=== PATIENT | female | born 1965 | race Caucasian/White ===

== ENCOUNTER 2023-04-02 11:36 | Emergency (ER) | payer MEDICARE, OTHER, SELFPAY ==
[2023-04-02 11:51] VITALS: BP 167/96; PULSE 80; RESP 16; TEMP 36.4; O2SAT 98; BMI 31.1
--- NOTE | 2023-04-02 11:56 | ED_ITS ---
HPI - General Adult General Chief complaint: Nausea/Vomiting/Diarrhea Stated complaint: nausea/ diarrhea Time Seen by Provider: 04/02/23 13:06 Source: patient Mode of arrival: ambulatory Limitations: no limitations History of Present Illness HPI narrative: 57-year-old female presents to the ER for evaluation of acute onset of nausea, vomiting, diarrhea that started at 06:00 today. She states she was in her usual state of health yesterday. She woke up this morning feeling very unwell. She had several episodes of nonbloody vomitus and diarrhea. Both episodes were just prior to coming to the emergency department. She took Pepto-Bismol before coming to the emergency department. She denies any associated abdominal pain, fever, chills, chest pain, cough, URI symptoms or known sick contacts. MD complaint: Nausea vomiting and diarrhea Onset (ago): hour(s) Severity: moderate Pain Consistency: now resolved Relieving factors: none Exacerbating factors: none Associated symptoms: denies other symptoms Treatments prior to arrival: none Related Data Previous Rx's Medication Instructions Recorded oxybutynin chloride 10 mg 10 mg PO DAILY 30 days #30 tabs 10/26/20 tablet,extended release 24 hr ondansetron 4 mg disintegrating 4 mg PO Q8H PRN nausea and 04/02/23 tablet vomiting #7 tabs Allergies Allergy/AdvReac Type Severity Reaction Status Date / Time lisinopril [LISINOPRIL] Allergy Severe ANGIOEDEMA Verified 04/02/23 11:50 Review of Systems Review of Systems: Yes all other systems are reviewed and are negative [facility] Social History Social History Alcohol intake: never Smoked in Last 30 Days: No Use of substances other than those prescribed or required for medical reasons: Yes Substance Use Type: Marijuana Advance Directives: No Advance Directives Information Provided: Yes Physical Exam ED Vital Signs: Vital Signs - 24 hr 04/02/23 11:51 04/02/23 12:22 04/02/23 14:47 Temperature 97.6 F Pulse Rate 80 78 89 Respiratory Rate 16 16 16 Blood Pressure 167/96 H 180/90 H 174/96 H Pulse Oximetry 98 95 94 Oxygen Delivery Method Room Air Room Air Room Air 04/02/23 14:48 Temperature Pulse Rate Respiratory Rate Blood Pressure Pulse Oximetry 95 Oxygen Delivery Method Room Air BMI result Body Mass Index 31.1 Appearance: Alert. Oriented X3. No acute distress. Head: normocephalic, atraumatic. Eyes: Pupils equal, round and reactive to light. ENT: Pharynx normal. No tonsillar swelling or exudate. Neck: Normal inspection. Neck supple. CVS: Normal heart rate and rhythm. Pulses normal. Respiratory: No respiratory distress. Breath sounds normal. Abdomen: Soft and nontender. +BS x4 Skin: Skin warm and dry. Normal skin color. Normal skin turgor. No rashes. Extremities: s/p bilateral BKA Neuro/psych: Oriented X 3. No motor deficit. No sensory deficit. CN II-XII intact. Normal speech and cognition. Course Course Course Narrative: RME: 57 yold female with pmh of [place] Saha presents to the ED for multiple episodes of nausea, vomitting, and diarrhea since 6am this morning. patient denies any abdomianl pain, chest pain, coughing, fever, or bodyaches. Patient states chills. labs ordered Medications Administered Discontinued Medications Generic Name Dose Route Start Last Admin Trade Name Freq PRN Reason Stop Dose Admin Sodium Chloride 1,000 mls @ 999 mls/hr 04/02/23 12:34 04/02/23 13:27 Ns IV 04/02/23 13:34 Not Given .Q1H1M STA Sodium Chloride 1,000 mls @ 999 mls/hr 04/02/23 12:34 04/02/23 13:27 Ns IV 04/02/23 13:34 Not Given .Q1H1M STA Sodium Chloride 1,000 mls @ 999 mls/hr 04/02/23 13:15 04/02/23 15:56 Ns IVCONT 04/02/23 14:15 Infused .Q1H1M TOÑO Infusion Ondansetron HCl 4 mg 04/02/23 13:07 04/02/23 13:36 Ondansetron Hcl 4 Mg/2 Ml Vial IVPUSH 04/02/23 13:08 4 mg ONCE ONE Administration Medical Decision Making Medical Decision Making MDM Narrative: 57-year-old female presents to the ER for evaluation of acute onset of nausea, vomiting, diarrhea that started 06:00 today. No associated abdominal pain. On arrival to the ER her vital signs are stable and abdominal exam is benign. IV was established and patient was given IV fluids and Zofran. She had basic labs checked which revealed a leukocytosis which is chronic. She states she has had leukocytosis for 25 years, was seen by flight readiness technician in the past and told there was ?nothing to do about it. ? Her white blood cell count is lower than previous. Her other lab work is unremarkable. She is tolerating p.o. in feeling much better. No episodes of nausea vomiting while in the emergency department. At this point comfortable discharge home with supportive care and antiemetics p.r.n.. Most likely gastroenteritis. Patient agrees with plan Differential Diagnosis Differential Diagnoses: The differential diagnosis associated with the presentation includes Viral gastroenteritis, bacterial gastroenteritis, colitis, diverticulitis, dehydration, metabolic derangement Admission/Observation Consideration of admission/observation: Escalation of care including admission/observation considered Persistent nausea vomiting and diarrhea, considered obs/admission however symptoms resolved Lab Data MDM Lab Attestation statement: I reviewed the patient's lab results. Chronic leukocytosis, no anemia, no evidence of dehydration metabolic derangement 04/02/23 12:51 04/02/23 12:51 Labs: Lab Results 04/02/23 04/02/23 04/02/23 Range/Units 12:10 12:10 12:10 WBC (4.8-10.8) X10*3/uL RBC (4.20-5.50) X10*6/uL Hgb (12.0-16.0) g/dl Hct (37.0-47.0) % MCV (80.0-98.0) fL MCH (27.0-33.0) pg MCHC (31.0-35.0) g/dl RDW (11.0-16.0) % Plt Count (160-400) X10*3/uL MPV (9.4-12.3) fL Immature Gran % (Auto) (0.0-0.4) % Neut % (Auto) (45-73) % Lymph % (Auto) (20-40) % [place] % (Auto) (2-11) % Eos % (Auto) (0-4) % Baso % (Auto) (0-2) % Lymph # (Auto) (1.2-4.9) X10*3/uL [place] # (Auto) (0.1-1.2) X10*3/uL Eos # (Auto) (0.0-0.4) X10*3/uL Baso # (Auto) (0.0-0.2) X10*3/uL Abs Immat Gran (auto) (0.00-0.03) X10*3/uL Absolute Neuts (auto) (2.0-8.3) x10*3/uL Absolute Nucleated RBC (0.0-0.012) X10*3/uL Nucleated RBC % (auto) (0.0-0.2) /100WBC Sodium (135-145) mmol/L Potassium (3.3-5.1) mmol/L Chloride (96-108) mmol/L Carbon Dioxide (22-29) mmol/L Anion Gap (12-20) BUN (9-16) mg/dL Creatinine (0.5-1.4) mg/dL Estim Creat Clear Calc Estimated GFR Random Glucose (60-115) mg/dL Calcium (8.4-10.2) mg/dL Total Bilirubin (0.0-1.0) mg/dL AST (5-31) U/L ALT (0-31) U/L Alkaline Phosphatase (39-117) U/L Total Protein (6.5-8.0) g/dL Albumin (3.5-5.0) g/dL Lipase (8-78) U/L Urine Color Yellow Urine Appearance Clear Urine pH 5.5 (5.0-9.0) Ur Specific [place] 1.020 (1.005-1.025) Urine Protein 30 (1+) H (Neg-Trace) mg/dL Urine Glucose (UA) Negative (Negative) mg/dL Urine Ketones Trace (Negative) mg/dL Urine Blood Moderate (2+) H (Negative) Urine Nitrite Negative (Negative) Ur Leukocyte Esterase Trace H (Negative) Urine RBC 3-5 H (0-2) /HPF Urine WBC 0-5 (0-5) /HPF Ur Squamous Epith Cells 6-10 (0-2) /HPF Urine Bacteria Trace (None Seen) Hyaline Casts 0-2 (0-2) /LPF COVID-19 (NATHALY) Negative (Negative) COVID-19 Clin Com See Note Influenza Type A (JOSE) Negative (Negative) Influenza Type B (JOSE) Negative (Negative) Influenza A & B Note See Note 04/02/23 04/02/23 Range/Units 12:51 13:24 WBC 16.6 H (4.8-10.8) X10*3/uL RBC 4.82 (4.20-5.50) X10*6/uL Hgb 14.8 (12.0-16.0) g/dl Hct 44.4 (37.0-47.0) % MCV 92.1 (80.0-98.0) fL MCH 30.7 (27.0-33.0) pg MCHC 33.3 (31.0-35.0) g/dl RDW 12.4 (11.0-16.0) % Plt Count 264 (160-400) X10*3/uL MPV 9.7 (9.4-12.3) fL Immature Gran % (Auto) 0.5 H (0.0-0.4) % Neut % (Auto) 88.4 H (45-73) % Lymph % (Auto) 8.1 L (20-40) % Band[place] % (Auto) 2.7 (2-11) % Eos % (Auto) 0.1 (0-4) % Baso % (Auto) 0.2 (0-2) % Lymph # (Auto) 1.3 (1.2-4.9) X10*3/uL [place] # (Auto) 0.5 (0.1-1.2) X10*3/uL Eos # (Auto) 0.0 (0.0-0.4) X10*3/uL Baso # (Auto) 0.0 (0.0-0.2) X10*3/uL Abs Immat Gran (auto) 0.08 H (0.00-0.03) X10*3/uL Absolute Neuts (auto) 14.7 H (2.0-8.3) x10*3/uL Absolute Nucleated RBC 0.000 (0.0-0.012) X10*3/uL Nucleated RBC % (auto) 0.0 (0.0-0.2) /100WBC Sodium 142 (135-145) mmol/L Potassium 3.9 (3.3-5.1) mmol/L Chloride 110 H (96-108) mmol/L Carbon Dioxide 22 (22-29) mmol/L Anion Gap 14 (12-20) BUN 11 (9-16) mg/dL Creatinine 0.79 (0.5-1.4) mg/dL Estim Creat Clear Calc 71.4 Estimated GFR > 60 Random Glucose 109 (60-115) mg/dL Calcium 9.5 (8.4-10.2) mg/dL Total Bilirubin 0.4 (0.0-1.0) mg/dL AST 11 (5-31) U/L ALT 11 (0-31) U/L Alkaline Phosphatase 86 (39-117) U/L Total Protein 7.5 (6.5-8.0) g/dL Albumin 4.2 (3.5-5.0) g/dL Lipase 31 (8-78) U/L Urine Color Urine Appearance Urine pH (5.0-9.0) Ur Specific [place] (1.005-1.025) Urine Protein (Neg-Trace) mg/dL Urine Glucose (UA) (Negative) mg/dL Urine Ketones (Negative) mg/dL Urine Blood (Negative) Urine Nitrite (Negative) Ur Leukocyte Esterase (Negative) Urine RBC (0-2) /HPF Urine WBC (0-5) /HPF Ur Squamous Epith Cells (0-2) /HPF Urine Bacteria (None Seen) Hyaline Casts (0-2) /LPF COVID-19 (NATHALY) (Negative) COVID-19 Clin Com Influenza Type A (JOSE) (Negative) Influenza Type B (JOSE) (Negative) Influenza A & B Note Independent Historian Clinical information obtained from an independent historian. History obtained from or confirmed by: Other (Adult female member at the bedside) Tests considered The following testing was considered but not selected: Considered CT scan of the abdomen however her abdomen is soft and nontender Prescription Management I considered prescription management with: Other (Antiemetic) Critical Care Time Critical Care Time Critical Care Time: No Discharge Plan Discharge Clinical Impression: Gastroenteritis Patient Disposition: Home, Self-Care Instructions: Gastroenteritis (DC) Additional Instructions: You lab workup today was unremarkable. Your urine test was negative for infection but showed trace amounts of blood - recommend getting this repeated at your doctor's office when you are feeling better to ensure resolution. You most likely have a viral GI bug also known as gastroenteritis. Treatment is supportive care, symptoms usually resolve on their own in 48-72 hours. Recommend rest and plenty of oral hydration. Stick to a bland diet like soup and toast while you are not feeling well. Take the prescribed medication as needed for nausea. Recommend over the counter Pepto Bismol or Imodium for upset stomach and diarrhea. Follow up with your doctor as needed. If you develop new or worsening symptoms call 911 or come back to the ER for further evaluation. Prescriptions: New ondansetron 4 mg tablet,disintegrating 4 mg PO Q8H PRN (Reason: nausea and vomiting) Qty: 7 0RF No Action oxybutynin chloride 10 mg tablet extended release 24hr 10 mg PO DAILY 30 Days Qty: 30 0RF Referrals: Effie Huerta MD [Primary Care Provider] - Interventions: ED Discharge Assessment Last Done: 04/02/23 16:04 Discharge Date/Time: 04/02/23 16:04
--- NOTE | 2023-04-02 12:14 | MHC.EDTECH ---
Attempted to draw patients blood, patient has good vein but moved arm both times. Evette
[2023-04-02 12:22] VITALS: BP 180/90; PULSE 78; RESP 16; O2SAT 95
--- NOTE | 2023-04-02 12:50 | PC.NURSE ---
pt axox4, respirations even and unlabored, sats 96% RA, vss, skin wpd, +bs x 4. pt reports several episodes of n/v/d x 0600 today. reports chills; denies cp/sob. iv established, labs drawn. awaiting primary eval by ed provider; all needs met at this time; call sevilla within reach.
[2023-04-02 12:51] LABS: COVID-19 Test Negative (Negative); IDNOW Serial# 55D5AD1C
[2023-04-02 12:55] LABS: MANUAL DIFF FLAG NO
[2023-04-02 12:59] LABS: Appearance Urine Clear; Color Urine Yellow; Glucose Urine UA Negative (Negative); IDNOW Serial# 08D9AD1C; Influenza A Negative (Negative); Influenza B2 Negative (Negative); Leukocyte Esterase Urine Trace (Negative); Nitrite Urine Negative (Negative); PH 5.5 (5.0-9.0); UMIC TRIGGER UACC YES; Urine Blood Moderate (2+) (Negative); Urine Ketones Trace mg/dL (Negative); Urine Protein 30 (1+) mg/dL (Neg-Trace)
[2023-04-02 12:59] LABS: Basophils Percent Auto 0.2 % (0-2); Eosinophils Percent Auto 0.1 % (0-4); Hematocrit 44.4 % (37.0-47.0); Hemoglobin 14.8 g/dl (12.0-16.0); Imm Gran Abs Auto 0.08 X10*3/uL (0.00-0.03); Imm Gran Pct Auto 0.5 % (0.0-0.4); Lymphocytes Absolute Auto 1.3 X10*3/uL (1.2-4.9); Lymphocytes Percent Auto 8.1 % (20-40); Mean Corpuscular HGB Conc 33.3 g/dl (31.0-35.0); Mean Corpuscular Hemoglobin 30.7 pg (27.0-33.0); Mean Corpuscular Volume 92.1 fL (80.0-98.0); Mean Platelet Volume 9.7 fL (9.4-12.3); Monocytes Absolute Auto 0.5 X10*3/uL (0.1-1.2); Monocytes Percent Auto 2.7 % (2-11); Neutrophils Absolute Auto 14.7 x10*3/uL (2.0-8.3); Neutrophils Percent Auto 88.4 % (45-73); Platelet Count 264 X10*3/uL (160-400); Red Blood Count 4.82 X10*6/uL (4.20-5.50); Red Cell Distribution Width 12.4 % (11.0-16.0); White Blood Count 16.6 X10*3/uL (4.8-10.8)
[2023-04-02 13:12] LABS: Bacteria Urine Trace (None Seen); Hyaline Casts Urine 0-2 /LPF (0-2); WBC Urine 0-5 /HPF (0-5)
[2023-04-02] MEDS: 0.9 % Sodium Chloride 1,000 ML 999 ML IVCONT (13:36)
[2023-04-02] MEDS: ondansetron HCL 4 MG/2 ML VIAL IVPUSH (13:36)
[2023-04-02 14:19] LABS: Alanine Aminotransferase 11 U/L (0-31); Albumin Level 4.2 g/dL (3.5-5.0); Alkaline Phosphatase 86 U/L (39-117); Anion Gap 14 (12-20); Aspartate Amino Transferase 11 U/L (5-31); Bilirubin Total 0.4 mg/dL (0.0-1.0); Blood Urea Nitrogen 11 mg/dL (9-16); Calcium 9.5 mg/dL (8.4-10.2); Carbon Dioxide 22 mmol/L (22-29); Chloride 110 mmol/L (96-108); Creatinine Clr Calc Pharmacy 71.4; Estimated Glomerular Filt Rate > 60; Glucose Random 109 mg/dL (60-115); Lipase 31 U/L (8-78); Potassium 3.9 mmol/L (3.3-5.1); Sodium 142 mmol/L (135-145); Total Protein 7.5 g/dL (6.5-8.0)
[2023-04-02 14:47] VITALS: BP 174/96; PULSE 89; RESP 16; O2SAT 94
[2023-04-02 14:48] VITALS: O2SAT 95
== END 2023-04-02 16:04 | disposition home or self-care (01) ==
PROVIDERS: Physician Assistant; Emergency Provider Emergency Medicine Emergency Medical Services; PCP Family Medicine
DX: K52.9 Noninfective gastroenteritis and colitis, unspecified (principal); R11.2 Nausea with vomiting, unspecified; Z20.822 Contact with and (suspected) exposure to COVID-19; Z20.828 Contact with and (suspected) exposure to other viral communicable diseases; Z79.899 Other long term (current) drug therapy
CPT/HCPCS: 80053; 81001; 81003; 83690; 85025; 87502; 87635; 96361; 96365; 99284; J2405

== ENCOUNTER 2023-09-25 14:11 | Emergency (ER) | payer MEDICARE, OTHER, SELFPAY ==
--- NOTE | ~2023-09-25 | XR_ITS ---
EXAMINATION: XR CHEST CLINICAL INFORMATION: Chest pain. Evaluate for pneumonia COMPARISON: CT chest 07/22/2017 TECHNIQUE: Frontal view of the chest was obtained. FINDINGS: No significant abnormality is noted involving the heart, lungs, mediastinum, bony thorax or soft tissues. XR/XR chest 1V IMPRESSION: Unremarkable chest examination.
[2023-09-25 14:24] VITALS: BP 160/100; O2SAT 98
[2023-09-25 14:26] VITALS: BP 175/88; PULSE 60; RESP 16; TEMP 36.8; O2SAT 95; BMI 31.2
[2023-09-25 14:28] VITALS: BP 182/97; PULSE 53; RESP 16; TEMP 36.4; O2SAT 98; BMI 42.1
--- OUTSIDE RECORDS SUMMARY | 2023-09-25 14:36 | XMS_ITS | Continuity of Care Document ---
Author Name Unknown Organization [facility] [employer] [facility] Address [address] [place] [address], [address] [place] [address]- Care Team Providers Care Acid Strength Inspector Name Role Phone Bradley WYATT, Effie Zazueta Primary Care Physician Encounter [facility] [place] Date(s): 08/08/22 - 09/07/22 [facility] [employer] [address] [place], [place] [address] Allergies, Adverse Reactions, Alerts Substance Reaction Severity Status lisinopril tongue swelling Persistent Severe Active Immunizations Given and Recorded Vaccine Date Status Refusal Reason pneumococcal 23-valent vaccine 08/11/17 Given Medications aspirin 81 mg oral delayed release tablet 81 mg, By Mouth, Daily, Refills 0, Maintenance, 08/11/17 17:24:06 Start Date: 08/11/17 Status: Ordered estradiol 0.1 mg/g vaginal cream = 1 Gm, Vaginally, Daily at bedtime, Apply 1 Gm vaginally at bedtime daily for 2 weeks, then changeto twice weekly., # 42.5 Gm, 1 Refills, Maintenance, 08/18/22 15:12:00 EST, [facility]/pharmacy #[id number], Partial fill upon patient request if the prescription i... Start Date: 08/18/22 Status: Ordered FLUoxetine 40 mg oral capsule 1 capsule = 40 mg, By Mouth, Daily, # 30 capsule, 0 Refills, Maintenance, 07/22/17 5:57:50, Capsule Start Date: 07/22/17 Status: Ordered ibuprofen 600 mg oral tablet 600 mg, 1, tablet, By Mouth, 3 times a day, # 90 tablet, Refills 0, Maintenance, 08/10/22 16:12:00 EST, Partial fill upon patient request if the prescription is for a schedule II opioid drug. Start Date: 08/10/22 Status: Ordered LORazepam 0.5 mg oral tablet 1 tablet = 0.5 mg, By Mouth, 2 times a day, 0 Refills, Maintenance, 11/02/17 13:28:02 Start Date: 11/02/17 Status: Ordered losartan 25 mg oral tablet 50 mg, By Mouth, Daily, Refills 0, Maintenance, 08/11/17 17:24:57 EST Start Date: 08/11/17 Status: Ordered methylphenidate 5 mg oral tablet 5 mg, 1, tablet, By Mouth, Daily, Refills 0, Tot. Refills 0, Maintenance, 08/10/22 16:11:00 EST, Partial fill upon patient request if the prescription is for a schedule II opioid drug. Start Date: 08/10/22 Status: Ordered metoprolol 25 mg oral tablet 12.5 mg, By Mouth, 2 times a day, Refills 0, Maintenance, 08/11/17 17:25:05 Start Date: 08/11/17 Status: Ordered mirabegron 25 mg oral tablet, extended release 1 tablet = 25 mg, By Mouth, Daily, # 30 tablet, 11 Refills, Maintenance, 02/09/22 10:53:00 EDT, [facility]/pharmacy #[id number], Partial fill upon patient request if the prescription is for a schedule II opioid drug., 152.4, cm, 02/09/22 10:17:00 EDT, Height, 72.6... Start Date: 02/09/22 Status: Ordered nystatin topical [id number] u/gm powder 1 application, Topically, 2 times a day, # 60 Gm, 3 Refills, Maintenance, 08/12/22 14:08:00 EST, Powder, [facility]/pharmacy #[id number], Partial fill upon patient request if the prescription is for a schedule IIopioid drug., 1 application Topically 2 times a day... Start Date: 08/12/22 Status: Ordered oxyCODONE 5 mg oral capsule 1 capsule = 5 mg, By Mouth, Every 4 hours, PRN Pain , Severe, 0 Refills, Maintenance, 01/24/18 9:34:16 EDT Start Date: 01/24/18 Status: Ordered Reglan 10 mg oral tablet 1 tablet = 10 mg, By Mouth, Every 6 hours, 0 Refills, Maintenance, 11/02/17 13:31:35 Start Date: 11/02/17 Status: Ordered rosuvastatin 5 mg oral tablet 2 tablet = 10 mg, By Mouth, Daily at bedtime, 0 Refills, Maintenance, 11/02/17 13:34:17 EDT Start Date: 11/02/17 Status: Ordered traZODone 50 mg oral tablet 50 mg, 1, tablet, By Mouth, Daily at bedtime, Refills 0, Maintenance, 11/02/17 13:30:31 Start Date: 11/02/17 Status: Ordered ZyrTEC 10 mg oral tablet 1 tablet = 10 mg, By Mouth, Daily, # 30 tablet, 0 Refills, Maintenance, 07/22/17 5:59:32, Tablet Start Date: 07/22/17 Status: Ordered Problem List Condition Confirmation Course Effective Dates Status Health Status Informant Anxiety Confirmed Active HTN (hypertension) Confirmed Active Hypertriglyceridemia Confirmed Active Obese class I Confirmed Active Major depression, recurrent Confirmed Active Social History Social History Type Response Smoking Status Former smoker, quit more than 30 days ago entered on: 02/09/22 Sex Implantable Device List Procedure Provider Procedure Date Device Type Site Craniectomy Posterior Fossa Decompressio Sharlene WYATT (Neurosurgeon), Gabriele Zazueta 07/23/17 Unknown Brain Device Identifier Serial Number Lot or Batch Number Manufacturing Date Expiration Date Distinct Identification Code MRI Safety Implantable Status Assigning Authority Unknown Unknown Unknown Unknown 11/19/19 Unknown Unknown Active Unk nown Patient Care team information Care Team Personnel Name: Rudolph Linares Position: [facility] Cardio[place]Pulm Mgr [place] Member Role: Primary Care Nurse Name: Alonso Mack MD Position: [facility] Physician (General Medicine) Member Role: Lifetime Consulting Physician Address: Address: [address] [place] [address] [place] [address]- [place] Name: Effie Huerta MD Position: Reference Physician Member Role: PCP Address: Address: [place] [address]- Name: Karolina Rubalcava RN Position: [facility] RN Member Role: Primary Care Nurse Name: Lara Kumar RN Position: [facility] RN Supv Member Role: Primary Care Nurse Name: Evette Matthews RN Position: [facility] RN Member Role: Primary Care Nurse Care Team Related Persons Name: DANIAL DORON Address: [address] [place] [address] Name: DORON BARROW Address: home [address] [place] [id number]
--- OUTSIDE RECORDS SUMMARY | 2023-09-25 14:36 | XMS_ITS | Continuity of Care Document ---
Author Name Unknown Organization [facility] Address [address] [place] [address], [address] [place] [address]- Care Team Providers Care Business Analyst Sales Operations Name Role Phone Bradley WYATT, Effie Zazueta Primary Care Physician Encounter [facility] Date(s): 08/18/22 - 09/17/22 [facility] [facility] [address] [place], [place] [address] Allergies, Adverse Reactions, Alerts Substance [...] Gm, 1 Refills, Maintenance, 08/18/22 15:12:00 EST, [facility]/pharmacy #[id number], Partial fill upon patient request if [...] tablet, 11 Refills, Maintenance, 02/09/22 10:53:00 EDT, [facility]/pharmacy #[id number], Partial fill upon patient request if the prescription is for a schedule II opioid drug., 152.4, cm, 02/09/22 10:17:00 EDT, Height, 72.6... Start Date: 02/09/22 Status: Ordered nystatin topical [id number] u/gm powder 1 application, Topically, 2 times a day, # 60 Gm, 3 Refills, Maintenance, 08/12/22 14:08:00 EST, Powder, [facility]/pharmacy #[id number], Partial fill upon patient request if [...] Care Team Personnel Name: Rudolph Linares Position: [facility] Cardio/Pulm Mgr ([facility] [place]) Member Role: Primary Care Nurse Name: Alonso Mack MD Position: [facility] Physician (General Medicine) Member Role: Lifetime Consulting Physician Address: Address: [address] [place] [address] [place] [address]- [place] Name: Effie Huerta MD Position: Reference Physician Member Role: PCP Address: Address: [place] [address]- [place] Name: Karolina Rubalcava RN Position: [facility] RN Member Role: Primary Care Nurse Name: Lara Kumar RN Position: [facility] RN Supv Member Role: Primary Care Nurse Name: Evette Matthews RN Position: [facility] RN Member Role: Primary Care Nurse Care Team Related Persons Name: JENN BARROWA Address: [address] [place] [address] Name: DORON BARROW Address: home [address] [place] [address]
--- OUTSIDE RECORDS SUMMARY | 2023-09-25 14:36 | XMS_ITS | Continuity of Care Document ---
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 Name Role Phone Effie Huerta MD Primary Care Physician Encounter [facility] [place] Date(s): 05/12/23 - 05/12/[address] [address] Discharge Disposition: A-D/C Home Attending Physician: Crystal Cyr MD Admitting Physician: Crystal Cyr MD Referring Physician: Crystal Cyr MD Allergies, Adverse Reactions, Alerts Substance Reaction Severity Status lisinopril tongue swelling Persistent Severe Active Immunizations Given and Recorded Vaccine Date Status Refusal Reason pneumococcal 23-valent vaccine 08/11/17 Given Medications aspirin 81 mg oral delayed release tablet 81 mg, By Mouth, Daily, Refills 0, Maintenance, 08/11/17 17:24:06 Start Date: 08/11/17 Status: Ordered Bactrim DS 800 mg-160 mg oral tablet 1 tablet, By Mouth, 2 times a day, for 7 days, # 14 tablet, 0 Refills, Acute 05/19/23 7:56:00 EDT, 05/12/23 7:56:00 EDT, Tablet, [id number], Partial fill upon patient request if the prescription is for a schedule II opioid drug., 1 tablet By M... Start Date: 05/12/23 Stop Date: 05/19/23 Status: Ordered estradiol 0.1 mg/g vaginal cream = 1 Gm, Vaginally, Daily at bedtime, Apply 1 Gm vaginally at bedtime daily for 2 weeks, then changeto twice weekly., # 42.5 Gm, 1 Refills, Maintenance, 08/18/22 15:12:00 EST, [id number], Partial fill upon patient request if the prescription i... Start Date: 08/18/22 Status: Ordered FLUoxetine 40 mg oral capsule 1 capsule = 40 mg, By Mouth, Daily, # 30 capsule, 0 Refills, Maintenance, 07/22/17 5:57:50, Capsule Start Date: 07/22/17 Status: Ordered LORazepam 0.5 mg oral tablet [...] 17:25:05 Start Date: 08/11/17 Status: Ordered mirabegron 50 mg oral tablet, extended release 1 tablet = 50 mg, By Mouth, Daily, do not crush or chew, # 30 tablet, 11 Refills, Maintenance, 10/26/22 11:14:00 EST, ER Tablet, [facility]/pharmacy #[id number], Partial fill upon patient request if the prescription is for a schedule II opioid drug., 155, cm, 030... Start Date: 10/26/22 Status: Ordered Oxycodone 5mg Oral Tablet (PACU ONLY) 5 mg, Tablet, By Mouth, Once, in PACU ONLY, PRN for Pain , Moderate, Routine, 05/12/23 8:34:00 EDT Start Date: 05/12/23 Stop Date: 05/12/23 Status: Completed phenazopyridine 200 mg oral tablet 200 mg, 1, tablet, By Mouth, 3 times a day after meals, for 7 days, # 21 tablet, Refills 0, Tot. Refills 0, Acute 05/19/23 7:56:00 EDT, 05/12/23 7:56:00 EDT, Route to Pharmacy Electronically, [facility]/pharmacy #[id number], Partial fill upon patient request if th... Start Date: 05/12/23 Stop Date: 05/19/23 Status: Ordered rosuvastatin 5 mg oral tablet 2 tablet = 10 mg, By Mouth, Daily at bedtime, 0 Refills, Maintenance, 11/02/17 13:34:17 EDT Start Date: 11/02/17 Status: Ordered traZODone 50 mg oral tablet 50 mg, 1, tablet, By Mouth, Daily at bedtime, Refills 0, Maintenance, 11/02/17 13:30:31 Start Date: 11/02/17 Status: Ordered Problem List Condition Confirmation Course Effective Dates Status Health Status Informant Anxiety Confirmed Active HTN (hypertension) Confirmed Active Hypertriglyceridemia Confirmed Active Obese class I Confirmed Active Major depression, recurrent Confirmed Active Vital Signs Most recent to oldest [Reference Range]: 1 2 3 Height 152.40 cm (05/12/23 6:46 AM) 152.40 cm (05/11/23 10:05 AM) Weight 73.3 kg (05/12/23 6:46 AM) 63.64 kg (05/11/23 10:05 AM) Oxygen Saturation [94-100 %] 96 % (05/12/23 8:45 AM) 98 % (05/12/23 8:30 AM) 99 % (05/12/23 8:15 AM) Pulse Rate [55-90 bpm] 71 bpm (05/12/23 6:46 AM) Body Mass Index [18.5-24.99 kg/m2] 31.56 kg/m2 *>HHI* (05/12/23 6:46 AM) 27.4 kg/m2 *H* (05/11/23 10:05 AM) Blood Pressure [90-138/55-84 mm Hg] 137/75mm Hg (05/12/23 8:45 AM) 137/75mm Hg (05/12/23 8:30 AM) 127/74mm Hg (05/12/23 8:15 AM) Respiratory Rate [16-30 br/min] 19 br/min (05/12/23 8:45 AM) 18 br/min (05/12/23 8:30 AM) 18 br/min (05/12/23 8:29 AM) Temperature [96.8-100.4 DegF] 97.3 DegF (05/12/23 8:45 AM) 97 DegF (05/12/23 8:15 AM) 97.7 DegF (05/12/23 6:46 AM) Liters per Minute 5 L/min (05/12/23 8:15 AM) Mode of Delivery (Oxygen) Room air (05/12/23 8:45 AM) Room air (05/12/23 8:30 AM) Simple face mask (05/12/23 8:15 AM) Blood pressure sites Arm, right (05/12/23 6:46 AM) Temperature Route Temporal (05/12/23 8:45 AM) Temporal (05/12/23 8:15 AM) Temporal (05/12/23 6:46 AM) Dry Weight 73.3 kg (05/12/23 6:46 AM) 63.64 kg (05/11/23 10:05 AM) Weight Obtained Via Standing scale (05/12/23 6:46 AM) Patient/family stated (05/11/23 10:05 AM) Dry Weight Obtained Via Standing scale (05/12/23 6:46 AM) Patient/family stated (05/11/23 10:05 AM) Social History Social History Type Response Smoking [...] Unknown 11/19/19 Unknown Unknown Active Unk nown Note * Mena Kolb RN: PERFORM Event Display: Discharge/Transfer Note Hospital Authored Date: [id number] Nursing Discharge Note Entered On: 05/12/2023 9:18 EDT Performed On: 05/12/2023 9:17 EDT by Mena Kolb RN Nursing Discharge Note 2 Discharge Time : 05/12/2023 9:17 EDT Discharge Level of Care at Discharge : Home/Half-Way/Foster Care Patient Left Unit Via : Wheelchair Patient Accompanied Off Unit with : Significant other DC Instructions Provided & Signed by Pt : Yes Patient Understands D/C Instructions : Yes Verbalized Understanding of D/C Plan By : Patient, Significant other Patient Instructions Discharge Signed : Yes Did Pt have Specialty Bed or Wound Vac : No Mena Kolb RN - 05/12/2023 9:17 EDT * Mena Kolb RN: PERFORM Event Display: Patient Education/Instruction Authored Date: [id number] Inpatient Adult Discharge Instructions [address] [address] Name: NGUYEN BARROW : 1965 Visit: 05/12/2023 06:14:00 Current Date: 05/12/2023 08:48 Account: [id number] Inpatient Adult Discharge Instructions We would like to thank you for allowing us to assist you with your healthcare needs. The following includes patient education materials and information regarding your injury/illness. Our entire staffstrives to provide an excellent experience for our patients and their families. PLEASE ENSURE YOU FOLLOW-UP PER THE INSTRUCTIONS BELOW! ?? YOUR OPINION IS IMPORTANT TO US! Please complete the survey you may receive by mail or email. Your feedback will be used to make improvements to the healthcare experiences of our patients and their families. Surveys are administered by [employer] ?? If further treatment with your primary care physician or another doctor is recommended, it is important for you to keep the appointment. Call your primary care physician or return to the Emergency Department immediately if your condition worsens, fails to improve, or new symptoms develop. If you need to find a doctor, you can call [facility] [employer] Link for a referral at [phone] or toll free at [phone]) or log in to [email or web address].. ?? [facility], in keeping with [facility] guidance, no longer requires face masks for staff, patientsor visitors in most situations. Similiar to time spent indoors at other locations, there is the chance that you were exposed to repiratory viruses during your time with us (such as flu or COVID-19). If you develop symptoms concerning for a viral respiratory infection, please seek testing (and treatment if indicated) from your medical provider or home test kit. ?? You can view and manage your care through the patient portal or by using a health care sammie of your choosing. [employer] is a website that allows you to securely view your medical information including your hospital discharge summary, office visit summaries, medications and follow-up visits. You can also request appointments, renew medications, and request access to your medical information using a health care sammie of your choosing, or just ask a question. You can enroll at [email or web address] or register during your next office visit. You have been discharged from [facility], Patient Care Unit: [facility]. If you have any questions regarding these instructions after you leave, please call us and we will be happy to assist you. [facility] Your Care Team Attending Physician Crystal Cyr MD Discharging Providers Hiral Coleman DO Reason for Admission OVER ACTIVE BLADDER CS DS Tests Performed Below is a partial list of the tests performed during your hospitalization. You may have had other tests and procedures not included in this list. Please discuss all test results with your provider. Primary Care Provider Effie Huerta MD Advance Directive Health Care Proxy on File Yes - Health Care Proxy Discharge Vitals Temperature: 97 DegF Height: 152.4 cm Pulse Rate: 71 bpm Weight: 73.3 kg Respiratory Rate: 18 br/min Body Mass Index:??31.56 kg/m2??Critical Systolic Blood Pressure: 127 mm Hg Body surface area: 1.76 Diastolic Blood Pressure: 74 mm Hg ?? Oxygen Saturation: 99 % ?? Studies Pending All tests and labs ordered during this hospital stay have been completed unless listed below. Please discuss all pending results with your provider listed above in these instructions. ?? No incomplete studies found What to do next Instructions From Your Doctor Discharge Orders Instructions from your Care Team You may stop taking the mirabegron per Hiral Rodriguez DO. Next dose of tylenol at 4:00pm Next dose of ibuprofin at 1:00pm Please call the office with any questions or concerns. Scheduled Follow-Up Appointments Monday 10:40 AM EDT ?? With: Crystal Cyr MD Where: [facility] [address] [facility] [address] [place] [address]- Status: Pending Discharge Medications NGUYEN BARROW :1965 Visit Date:05/12/2023 Medications: Please continue your medications until treatment is completed or stopped by your provider. Medications not listed below should be discontinued. Discuss any questions related to medications with your provider. What How Much When Instructions Next Dose New Phenazopyridine (phenazopyridine 200 mg oral tablet) 1 tab(s) Oral 3 times a day after meals Duration: [address] 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/pharmacy #[id number] this evening Unchanged Aspirin (aspirin 81 mg oral delayed release tablet) 81 Milligram Oral Daily Unchanged Estradiol Topical (estradiol 0.1 mg/ g vaginal cream) 1 gram Vaginally Daily at Bedtime Apply 1 Gm vaginally at bedtime daily for 2 weeks, then change to twice weekly. ?? Unchanged Fluoxetine (FLUoxetine 40 mg oral capsule) 1 capsule Oral Daily Unchanged Lorazepam (LORazepam 0.5 mg oral tablet) 1 tab(s) Oral Twice a day Unchanged Losartan (losartan 25 mg oral tablet) 50 Milligram Oral Daily Unchanged Methylphenidate (methylphenidate 5 mg oral tablet) 1 tab(s) Oral Daily Unchanged Metoprolol (metoprolol 25 mg oral tablet) 12.5 Milligram Oral Twice a day Unchanged mirabegron (mirabegron 50 mg oral tablet, extended release) 1 tab(s) Oral Daily do not crush or chew ?? May discontinue Unchanged Rosuvastatin (rosuvastatin 5 mg oral tablet) 2 tab(s) Oral Daily at Bedtime Unchanged Trazodone (traZODone 50 mg oral tablet) 1 tab(s) Oral Daily at Bedtime Pharmacy Information [facility]/pharmacy #[id number]: [address] [place], [place] [id number] [phone] Test Results Below is a partial list of the most recent Laboratory test results done prior to this discharge. You may have had other tests and procedures not included in this list. Please discuss all test resultswith your provider. Allergies (NKA means No Known Allergies) lisinopril??(tongue swelling) Problems Active Problems??(5) Anxiety?? HTN (hypertension)?? Hypertriglyceridemia?? Major depression, recurrent?? Obese class I?? Education Materials Below is the list of Educational Leaflet Providered with your Discharge Instructions. Surgery Medical Daystay Surgical Overnight Discharge Instructions?? Cystoscopy?? Valuables and Belongings I fully understand and agree that [facility] accepts no responsibility for all my personal property including clothing, toilet articles, radios, jewelry, dentures, hearing aids, rings, money, or any other property that is in my possession or is brought to me after admission. I understand certain valuables may be placed in a hospital safe for a short period of time. I understand that the hospital is not liable for loss or damage due to accident, fire, or other natural occurrence while said property is in the safe. I accept full responsibility for any personal property that I keep with me, and will not hold the hospital responsible in case of loss or disappearance. I acknowledge that i have been encouraged to send valuables and belongings home. ? Other Discharge Information ? Pulmonary Rehab Status?? Pulmonary Rehab Discharge Status?? Respiratory Rate: 18 br/min ? Common Emergency Awareness Tips IS IT A STROKE? Act FAST and Check for these signs: FACE Does the face look uneven? ARM Does one arm drift down? SPEECH Does their speech sound strange? TIME Call at any sign of stroke ?? Heart Attack Signs Chest discomfort: Most heart attacks involve discomfort in the center of the chest and lasts more than a few minutes, or goes away and comes back. It can feel like uncomfortable pressure, squeezing, fullness or pain. Discomfort in upper body: Symptoms can include pain or discomfort in one or both arms, back, neck, jaw or stomach. Shortness of breath: With or without discomfort. Other signs: Breaking out in a cold sweat, nausea, or lightheaded. Remember, MINUTES DO MATTER. If you experience any of these heart attack warning signs, call to get immediate medical attention! ?? Smoking can increase your chances of developing chronic health problems and can cause harmful effects to other family members in your house. If you smoke, you are strongly encouraged to quit. Please call [facility] Health Link at [phone] or [phone] ([phone]) or log in to [email or web address] for referrals to smoking cessation programs. ?? 599 Suicide & Crisis Lifeline is available 13/03 if you or someone you know needs to find a reason to keep living. By calling 215 you'll be connected to a skilled, trained counselor at a crisis center in your area. INPATIENT DISCHARGE INSTRUCTIONS SIGNATURE PAGE NGUYEN BARROW Location:[facility] Registration Date and Time:05/12/2023 06:14 EDT Primary Care Physician: Effie Huerta MD, Attending Physician: Ger WYATT, Crystal Jacobo, I NGUYEN BARROW, have received the above patient education materials/instructions and have verbalized understanding. If ambulance or transport services are being used I further acknowledge being given a choice of service. ?? If you need to contact me, please call me at this number: . Patient/Product Management Internship Name: Patient/Product Management Internship Signature: Relationship to Patient: Witness Name/Signature: Date: * Mena Kolb RN: PERFORM Event Display: Patient Education Leaflets Authored Date: [id number] Surgery Medical Daystay Surgical Overnight Discharge Instructions ?? 295 Medical Daystay/Surgical Overnight Discharge Instructions ? Since your coordination and judgment may be altered by medication and/or anesthesia, a responsible adult must drive you home from the hospital. ? If you have received medication for pain or sedation while under our care, you should not drive, operate machinery, drink alcohol, or sign any legal documents for 24 hours.?? You should have someone with you at home tonight. ? Remain at home the day of discharge.?? You may be up and about unless otherwise instructed by your physician. ? You may resume your daily prescription medication schedule.?? Any depressant medication should be avoided for 24 hours unless otherwise instructed by your surgeon or anesthesiologist. ? Call your physician for a follow-up appointment.? If you experience unusual or severe pain not relied by your pain medication, excessive bleedingor drainage, persistent nausea and vomiting, excessive swelling or redness, foul odor from incisionsite or fever over 100.6F, you need to call your physician. ? A follow-up phone call by a nurse will be made the day after your procedure.?? If you have stayed with us over night, you will not be receiving a follow-up phone call. ? Nausea and vomiting are a common side effect of prescription pain medication.?? We recommend that pills are not taken on an empty stomach.?? While taking any prescription pain medication you should not drive or drink alcohol. ? * Mena Kolb RN: PERFORM Event Display: Patient Education Leaflets Authored Date: [id number] Cystoscopy ?? [address]315 Cystoscopy Cystoscopy is a procedure that lets your healthcare provider look directly inside your urethra and bladder. It can be used to: ??? Help diagnose a problem with your urethra, bladder, or kidneys. ??? Take a sample (biopsy) of bladder or urethral tissue. ??? Treat certain problems (such as removing kidney stones). ??? Place a tube (stent) to bypass a blockage. ??? Take special X-rays of the kidneys. Based on the findings, your provider may advise other tests or treatments. What is a cystoscope? A cystoscope is a telescope-like tube that contains lenses and small glass wires that make bright light (fiberoptics). The cystoscope may be straight and rigid. Or it may be flexible to bend around curves in the urethra. The healthcare provider may look directly into the cystoscope, or project the image onto a screen. ?? Getting ready ??? Ask your healthcare provider if you should stop taking any medicines before the procedure. ??? Follow any directions you're given for not eating or drinking before the procedure. ??? Follow any other instructions your healthcare provider gives you. ?? Tell your??healthcare provider before the exam if you: ??? Take any medicines, such as aspirin or blood thinners. This also includes any uykt-uau-hygviyx and prescription medicines, vitamins, herbs, and other supplements. ??? Have allergies to any medicines ??? Are or think you may be ?? During the procedure Cystoscopy is done in the healthcare provider???s office, surgery center, or hospital. The doctor and a nurse are present during the procedure. It takes only a few minutes. It takes longer if a biopsy, X-ray, or treatment needs to be done. During the procedure: ??? You lie on an exam table on your back, knees bent and legs apart. You're covered with a drape. ??? Your urethra and the area around it are washed. Anesthetic jelly may be applied to numb the urethra. Other pain medicine is often not needed. In some cases, you may be offered a mild sedative to help you relax. If a more extensive procedure is to be done, such as a biopsy or kidney stone removal, general anesthesia may be needed. Often a one-time antibiotic is given. ??? The cystoscope is inserted. A sterile fluid is put into the bladder to expand it. You may feel pressure from this fluid. ??? When the procedure is done, the cystoscope is removed. ?? After the procedure If you had a sedative, general anesthesia, or spinal anesthesia, you must have someone drive you home. Once you???re home: ??? Drink plenty of fluids. ??? You may have burning or light bleeding when you pee. This is normal. ??? Medicines may be prescribed to ease any mild pain or prevent infection.Take these as directed. ?? When to call your healthcare provider Call your healthcare provider if you have any of the following after the procedure: ??? Heavy bleeding or blood clots ??? Burning that lasts more than 1 day ??? Fever of ?? 100?? F?? ( 38??C ) or higher, or as directed by your provider ??? Trouble peeing ? Last Reviewed Date: 2021 ?? [employer]. All rights reserved. This information is not intended as a substitute for professional medical care. Always follow your healthcare professional's instructions. ?? Patient Care team information Care Team Personnel Name: Alonso Mack MD Position: [facility] Physician (General Medicine) Member Role: Lifetime Consulting Physician Address: Address: [address] [place] [address] [address] Name: Effie Huerta MD Position: Reference Physician Member Role: PCP Address: Address: [address] [place] [address] [place] [address]- Name: Karolina Rubalcava RN Position: S RN Member Role: Primary Care Nurse Name: Lara Kumar RN Position: S RN Supv Member Role: Primary Care Nurse Name: Evette Matthews RN Position: S RN Member Role: Primary Care Nurse Care Team Related Persons Name: DORON BARROW Address: home [address] [place] [address] Name: DORON BARROW Address: [address] [place] [address]
--- OUTSIDE RECORDS SUMMARY | 2023-09-25 14:36 | XMS_ITS | Continuity of Care Document ---
Author Name Unknown Organization [facility] Address [address] [place] [address], [address] [place] [address]- Care Team Providers Care Therapeutic Dietitian Name Role Phone Effie Huerta MD Primary Care Physician [id number] Date[facility]s): [facility]/23/[facility] - 09/28/22 [facility] [address] [place] [address], [address] [place], [place] [address] Attending Physician: Crystal Cyr MD Admitting Physician: Crystal Cyr MD Referring Physician: Effie Huerta MD Allergies, Adverse Reactions, Alerts Substance Reaction [...] Gm, 1 Refills, Maintenance, 08/18/22 15:12:00 EST, [facility]/pharmacy #[id number], Partial fill upon patient request if the [...] tablet, 11 Refills, Maintenance, 02/09/22 10:53:00 EDT, [facility]/pharmacy #[id number], Partial fill upon patient request if the prescription is for a schedule II opioid drug., 152.4, cm, 02/09/22 10:17:00 EDT, Height, 72.6... Start Date: 02/09/22 Status: Ordered nystatin topical [id number] u/gm powder 1 application, Topically, 2 times a day, # 60 Gm, 3 Refills, Maintenance, 08/12/22 14:08:00 EST, Powder, [facility]/pharmacy #[id number], Partial fill upon patient [...] Care Team Personnel Name: Rudolph Linares Position: [facility] Cardio/Pulm Mgr ([facility]) Member Role: Primary Care Nurse Name: Alonso Mack MD Position: [facility] Physician (General Medicine) Member Role: Lifetime Consulting Physician Address: Address: [address] [place] [address] [place] [address]- Name: Effie Huerta MD Position: Reference Physician Member Role: PCP Address: Address: [address] [place] [address] Name: Karolina Rubalcava RN Position: [facility] RN Member Role: Primary Care Nurse Name: Lara Kumar RN Position: S RN Supv Member Role: Primary Care Nurse Name: Evette Matthews RN Position: S RN Member Role: Primary Care Nurse Care Team Related Persons Name: INADAVY DORON Address: home [address] [place] [id number] Name: DORON BARROW Address: home [address] [place] [address]
--- OUTSIDE RECORDS SUMMARY | 2023-09-25 14:36 | XMS_ITS | Continuity of Care Document ---
Author Name Unknown Organization [facility] Balbina [employer] [facility] Address [address] [facility], [address] [place] [address]- Care Team Providers Care Rn Ccu Name Role Phone Effie Huerta MD Primary Care Physician ( [phone] [id number] Date(s): 07/27/22 - 08/03/22 [facility]il[facility] [facility] [address] [facility] [address], [address] [place], [place] [address] Attending Physician: Crystal Cyr MD Referring Physician: Effie Huerta MD Allergies, Adverse Reactions, Alerts Substance Reaction Severity Status lisinopril Persistent Severe Active Immunizations Given and Recorded Vaccine Date Status Refusal Reason pneumococcal 23-valent vaccine 08/11/17 Given Medications aspirin 81 mg oral delayed release tablet 81 mg, By Mouth, Daily, Refills 0, Maintenance, 08/11/17 17:24:06 Start Date: 08/11/17 Status: Ordered clonazePAM 1 mg oral tablet 1 tablet = 1 mg, By Mouth, Daily at bedtime, 0 Refills, Maintenance, 11/02/17 13:32:12 Start Date: 11/02/17 Status: Ordered cloNIDine 0.1 mg/24 hr transdermal film, extended release 1 patch, Topically, Every week, # 4 patch, 0 Refills, Maintenance, 11/02/17 13:33:26, Patch Start Date: 11/02/17 Status: Ordered estradiol 0.1 mg/g vaginal cream = 1 Gm, Vaginally, Daily at bedtime, take every night for two weeks then twice weekly, # 30 Gm, 11 Refills, Maintenance, 02/09/22 10:52:00 EDT, [facility]/pharmacy #[id number], Partial fill upon patient request if the prescription is for a schedule II opioid drug.... Start Date: 02/09/22 Status: Ordered famotidine 40 mg oral tablet 1 tablet = 40 mg, By Mouth, Daily at bedtime, # 30 tablet, 0 Refills, Maintenance, 01/24/18 9:46:07EDT, Tablet Start Date: 01/24/18 Status: Ordered FLUoxetine 40 mg oral capsule [...] 17:24:57 EST Start Date: 08/11/17 Status: Ordered metoprolol 25 mg oral tablet 12.5 mg, By Mouth, 2 times a day, Refills 0, Maintenance, 08/11/17 17:25:05 Start Date: 08/11/17 Status: Ordered mirabegron 25 mg oral tablet, extended release 1 tablet = 25 mg, By Mouth, Daily, # 30 tablet, 11 Refills, Maintenance, 02/09/22 10:53:00 EDT, [facility]/pharmacy #[id number], Partial fill upon patient request if the prescription is for a schedule II opioid drug., 152.4, cm, 02/09/22 10:17:00 EDT, Height, 72.6... Start Date: 02/09/22 Status: Ordered mirabegron 25 mg oral tablet, extended release 1 tablet = 25 mg, By Mouth, Daily, # 30 tablet, 11 Refills, Maintenance, 05/31/22 17:05:00 EDT, [facility]/pharmacy #[id number], Partial fill upon patient request if the prescription is for a schedule II opioid drug., 152.4, cm, 05/31/22 16:54:00 EDT, Height, 72.6... Start Date: 05/31/22 Status: Ordered Oxybutynin = 5 mg, Daily, 0 Refills, Maintenance, 01/09/18 11:29:33 EDT Start Date: 01/09/18 Status: Ordered oxyCODONE 5 mg oral capsule 1 capsule = 5 mg, By Mouth, Every 4 hours, PRN Pain , Severe, 0 Refills, Maintenance, 01/24/18 9:34:16 EDT Start Date: 01/24/18 Status: Ordered Plavix 75 mg oral tablet 75 mg, By Mouth, Daily, Refills 0, Maintenance, 08/11/17 17:24:31 Start Date: 08/11/17 Status: Ordered promethazine 25 mg oral tablet 0 Refills, Maintenance, 07/22/17 5:58:14 Start Date: 07/22/17 Status: Ordered Reglan 10 mg oral tablet 1 tablet = 10 mg, By Mouth, Every 6 hours, 0 Refills, Maintenance, 11/02/17 13:31:35 Start Date: 11/02/17 Status: Ordered rosuvastatin 5 mg oral tablet 1 tablet = 5 mg, By Mouth, Daily at bedtime, 0 Refills, Maintenance, 11/02/17 13:34:17 Start Date: 11/02/17 Status: Ordered Trazodone See Instructions, 12.5 By Mouth in AM, 0 Refills, Maintenance, 11/02/17 13:29:31 Start Date: 11/02/17 Status: Ordered traZODone 50 mg oral tablet 50 mg, 1, tablet, By Mouth, Daily at bedtime, Refills 0, Maintenance, 11/02/17 13:30:31 Start Date: 11/02/17 Status: Ordered trospium chloride 20 mg oral tablet 1 tablet, By Mouth, Daily, # 30 tablet, 0 Refills, Maintenance, 05/09/22 8:35:00 EDT, [id number], 152.4, cm, 02/09/22 10:17:00 EDT, Height, 72.6, kg, 02/09/22 10:17:00 EDT, Dry Weight Start Date: 05/09/22 Status: Ordered ZyrTEC 10 mg oral tablet [...] Care Team Personnel Name: Rudolph Linares Position: [facility] Cardio/Pulm Mgr ([facility]) Member Role: Primary Care Nurse Name: Alonso Mack MD Position: [facility] Physician (General Medicine) Member Role: Lifetime Consulting Physician Address: Address: [address] [place] [address]- Name: Effie Huerta MD Position: Reference Physician Member Role: PCP Address: Address: [address] [place] [address]- Name: Karolina Rubalcava RN Position: [facility] RN Member Role: Primary Care Nurse Name: Lara Kumar RN Position: [facility] RN Supv Member Role: Primary Care Nurse Name: Evette Matthews RN Position: [facility] RN Member Role: Primary Care Nurse Care Team Related Persons Name: DORON BARROW Address: [address] [place] [address] Name: DORON BARROW Address: [address] [place] [address]
--- OUTSIDE RECORDS SUMMARY | 2023-09-25 14:36 | XMS_ITS | Continuity of Care Document ---
Author Name Unknown Organization [facility] [facility] [employer] Address [address] [place] [address], [address] [place] [address]- Care Team Providers Care Paint Stock Clerk Name Role Phone Effie Huerta MD Primary Care Physician ( [phone] [id number] Date(s): 01/25/23 - 02/01/23 [facility] [address] [place] [address], [address] [place], [place] [address] Attending Physician: Crystal Cyr MD Referring [...] 42.5 Gm, 1 Refills, Maintenance, 08/18/22 15:12:00 [facility], [facility]/pharmacy #[id number], Partial fill upon patient request if the [...] tablet, 11 Refills, Maintenance, 02/09/22 10:53:00 EDT, [facility]/pharmacy #[id number], Partial fill upon patient request if the prescription is for a schedule II opioid drug., 152.4, cm, 02/09/22 10:17:00 EDT, Height, 72.6... Start Date: 02/09/22 Status: Ordered mirabegron 50 mg oral tablet, extended release 1 tablet = 50 mg, By Mouth, Daily, do not crush or chew, # 30 tablet, 11 Refills, Maintenance, 10/26/22 11:14:00 EST, ER Tablet, [facility]/pharmacy #[id number], Partial fill upon patient request if the prescription is for a schedule II opioid drug., 155, cm, 030... Start Date: 10/26/22 Status: Ordered nystatin topical 874011 u/gm powder 1 application, Topically, 2 times a day, # 60 Gm, 3 Refills, Maintenance, 08/12/22 14:08:00 EST, Powder, [facility]/pharmacy #[id number], Partial fill upon patient request if the [...] Most recent to oldest [Reference Range]: 1 Height 155 cm (01/25/23 3:07 PM) Weight 73.6 kg (01/25/23 3:07 PM) Body Mass Index [18.5-24.99 kg/m2] 30.63 kg/m2 *>HHI* (01/25/23 3:07 PM) Blood Pressure [90-138/55-84 mm Hg] 132/ 80mm Hg (01/25/23 3:07 PM) Blood pressure sites Arm, right (01/25/23 3:07 PM) Dry Weight 73.6 kg (01/25/23 3:07 PM) Weight Obtained Via Standing scale (01/25/23 3:07 PM) Dry Weight Obtained Via Standing scale (01/25/23 3:07 PM) Social History Social History Type Response Smoking [...] Care Team Personnel Name: Rudolph Linares Position: [facility] Cardio/Pulm Mgr ([facility] [place] [place]) Member Role: Primary Care Nurse Name: Alonso Mack MD Position: [facility] Physician - Cardiac/Vascular Surgery Member Role: Lifetime Consulting Physician Address: Address: [address] [place] [address] [place] [address]- Name: Effie Huerta MD Position: Reference Physician Member Role: PCP Address: Address: [address] [place] [address]- Name: Karolina Rubalcava RN Position: [facility] RN Member Role: Primary Care Nurse Name: Lara Kumar RN Position: [facility] RN Supv Member Role: Primary Care Nurse Name: Evette Matthews RN Position: [facility] RN Member Role: Primary Care Nurse Care Team Related Persons Name: DORON BARROW Address: [address] [place] [address] Name: DORON BARROW Address: [address] [place] [address]
--- OUTSIDE RECORDS SUMMARY | 2023-09-25 14:36 | XMS_ITS | Continuity of Care Document ---
Author Name Unknown Organization [facility] Address [address] [place] [address], [address] [place] [address]- Care Team Providers Care Formula Mixer Name Role Phone Bradley WYATT, Effie Zazueta Primary Care Physician Encounter [facility] Date(s): 05/11/23 - 06/10/23 [facility] [address] [facility], 4[address] [place] [address]- Allergies, Adverse Reactions, Alerts Substance Reaction Severity [...] 42.5 Gm, 1 Refills, Maintenance, 08/18/22 15:12:00 [facility], [facility]/pharmacy #[id number], Partial fill upon patient request if the [...] Refills, Maintenance, 10/26/22 11:14:00 EST, ER Tablet, [facility]/pharmacy #[id number], Partial fill upon patient request if the prescription is for a schedule II opioid drug., 155, cm, 030... Start Date: 10/26/22 Status: Ordered rosuvastatin 5 mg oral tablet [...] Care team information Care Team Personnel Name: Evette Aparicio RN Position: [facility] RN Member Role: Primary Care Nurse Name: Alonso Mack MD Position: [facility] Physician (General Medicine) Member Role: Lifetime Consulting Physician Address: Address: [address] [place] [address] [place] [address]- Name: Effie Huerta MD Position: Reference Physician Member Role: PCP Address: Address: [address] [place] [address]- Name: Karolina Rubalcava RN Position: [facility] RN Member Role: Primary Care Nurse Name: Lara Kumar RN Position: [facility] RN Supv Member Role: Primary Care Nurse Care Team Related Persons Name: DORON BARROW Address: [address] [place] [address] Name: DORON BARROW Address: [address] [place] [address]
--- OUTSIDE RECORDS SUMMARY | 2023-09-25 14:36 | XMS_ITS | Continuity of Care Document ---
Author Name Unknown Organization [facility] Address [address] [place] [address]- Care Team Providers Care Packing Machine Pilot Can Router Name Role Phone Effie Huerta MD Primary Care Physician Encounter [facility] Date(s): 08/12/22 - 08/12/[address] [address]- Discharge Disposition: A-D/C Home Attending Physician: Crystal [...] 08/11/17 17:24:06 Start Date: 08/11/17 Status: Ordered FLUoxetine 40 mg oral capsule [...] 11 Refills, Maintenance, 02/09/22 10:53:00 EDT, [facility]/pharmacy #[id number], Partial fill upon patient request if the prescription is for a schedule II opioid drug., 152.4, cm, 02/09/22 10:17:00 EDT, Height, 72.6... Start Date: 02/09/22 Status: Ordered nystatin topical 575796 u/gm powder 1 application, Topically, 2 times a day, # 60 Gm, 3 Refills, Maintenance, 08/12/22 14:08:00 EST, Powder, [facility]/pharmacy #[id number], Partial fill upon patient request if the prescription is for a schedule IIopioid drug., 1 application Topically 2 times a day... Start Date: 08/12/22 Status: Ordered oxyCODONE 5 mg oral capsule 1 capsule = 5 mg, By Mouth, Every 4 hours, PRN Pain , Severe, 0 Refills, Maintenance, 01/24/18 9:34:16 EDT Start Date: 01/24/18 Status: Ordered Oxycodone 5mg Oral Tablet (PACU ONLY) 5 mg, Tablet, By Mouth, Once, in PACU ONLY, PRN for Pain , Moderate, Routine, 08/12/22 15:10:00 EST Start Date: 08/12/22 Stop Date: 08/12/22 Status: Completed phenazopyridine 200 mg oral tablet 200 mg, 1, tablet, By Mouth, 3 times a day, for 7 days, # 21 tablet, Refills 0, Tot. Refills 0, Acute 08/19/22 14:06:00 EST, 08/12/22 14:06:00 EST, Route to Pharmacy Electronically, [facility]/pharmacy #[id number], Partial fill upon patient request if the prescrip... Start Date: 08/12/22 Stop Date: 08/19/22 Status: Ordered Reglan 10 mg oral tablet [...] oldest [Reference Range]: 1 2 3 Height 155 cm (08/12/22 1:41 PM) 155 cm (08/10/22 4:39 PM) Weight 73.0 kg (08/12/22 1:41 PM) 68.2 kg (08/10/22 4:39 PM) Oxygen Saturation [94-100 %] 96 % (08/12/22 4:30 PM) 93 % *L* (08/12/22 3:30 PM) 93 % *L* (08/12/22 3:15 PM) Pulse Rate [55-90 bpm] 62 bpm (08/12/22 1:41 PM) Body Mass Index [18.5-24.99 kg/m2] 30.39 kg/m2 *>HHI* (08/12/22 1:41 PM) 28.39 kg/m2 *H* (08/10/22 4:39 PM) Blood Pressure [90-138/55-84 mm Hg] 160/93mm Hg *H* (08/12/22 4:30 PM) 185/90mm Hg 1 *H* (08/12/22 3:45 PM) 184/95mm Hg *H* (08/12/22 3:30 PM) Respiratory Rate [16-30 br/min] 16 br/min (08/12/22 4:40 PM) 20 br/min (08/12/22 3:45 PM) 15 br/min *L* (08/12/22 3:30 PM) Temperature [96.8-100.4 DegF] 97.6 DegF (08/12/22 4:30 PM) 96.5 DegF *L* (08/12/22 2:15 PM) 98.4 DegF (08/12/22 1:41 PM) Liters per Minute 5 L/min (08/12/22 2:15 PM) Mode of Delivery (Oxygen) Room air (08/12/22 4:30 PM) Room air (08/12/22 3:45 PM) Room air (08/12/22 3:30 PM) Blood pressure sites Arm, right (08/12/22 1:41 PM) Temperature Route Temporal (08/12/22 4:30 PM) Temporal (08/12/22 2:15 PM) Temporal (08/12/22 1:41 PM) Dry Weight 73.0 kg (08/12/22 1:41 PM) 68.2 kg (08/10/22 4:39 PM) Weight Obtained Via Standing scale (08/12/22 1:41 PM) Patient/family stated (08/10/22 4:39 PM) Dry Weight Obtained Via Standing scale (08/12/22 1:41 PM) Patient/family stated (08/10/22 4:39 PM) 1Result Comment: dr Cyr aware Social History Social History Type Response Smoking [...] Unknown Unknown Unknown 11/19/19 Unknown Unknown Active Unhe phillips Note * Lorraine Decker RN: PERFORM Event Display: Discharge/Transfer Note Hospital Authored Date: [id number] Nursing Discharge Note Entered On: 08/12/2022 16:56 EST Performed On: 08/12/2022 16:55 EST by Lorraine Decker RN Nursing Discharge Note 2 Discharge Time : 08/12/2022 16:46 EST Discharge Level of Care at Discharge : Home/Retirement/Foster Care Patient Left Unit Via : Wheelchair Patient Accompanied Off Unit with : Significant other DC Instructions Provided & Signed by Pt : Yes Patient Understands D/C Instructions : Yes Patient Instructions Discharge Signed : Yes Did Pt have Specialty Bed or Wound Vac : No Lorraine Decker RN - 08/12/2022 16:55 EST * Emily Srinivasan RN D: PERFORM, MODIFY Event Display: Patient Education/Instruction Authored Date: [id number] Inpatient Adult Discharge Instructions [address] [address] Name: NGUYEN BARROW : 1965 Visit: 08/12/2022 11:59:00 Current Date: 08/12/2022 14:54 Account: [id number] Inpatient Adult Discharge Instructions We would like [...] and their families. Surveys are administered by [employer] ?? If further treatment with your primary care physician or another doctor is recommended, it is important for you to keep the appointment. Call your primary care physician or return to the Emergency Department immediately if your condition worsens, fails to improve, or new symptoms develop. If you need to find a doctor, you can call [facility] for a referral at [phone] or toll free at [phone] ([phone]) or log in to [email or web address].. ?? You can view and manage your care through the patient portal or by using a health care sammie of your choosing. [employer] is a website that allows you to securely view your medical information including your hospital discharge summary, office visit summaries, medications and follow-up visits. You can also request appointments, renew medications, and request access to your medical information using a health care sammie of your choosing, or just ask a question. You can enroll at [email or web address] or register during your next office visit. You have been discharged from [facility], Patient Care Unit: [facility]. If you have any questions regarding these instructions after you leave, please call us and we will be happy to assist you. [facility] Your Care Team Attending Physician Crystal Cyr MD Discharging Providers Crystal Cyr MD Reason for Admission INTRINSIC SPHINCTER DEFICIENCY CS DS Tests Performed Below is a partial list of the tests performed during your hospitalization. You may have had other tests and procedures not included in this list. Please discuss all test results with your provider. Primary Care Provider Effie Huerta MD Advance Directive Health Care Proxy on File Yes - Health Care Proxy No qualifying data available. Discharge Vitals Temperature:??96.5 DegF??Low Height: 155 cm Pulse Rate: 62 bpm Weight: 73 kg Respiratory Rate:??12 br/min??Low Body Mass Index:??30.39 kg/m2??Critical Systolic Blood Pressure: 116 mm Hg Body surface area: 1.77 Diastolic Blood Pressure: 71 mm Hg ?? Oxygen Saturation: 99 % ?? Studies Pending All tests and labs ordered during this hospital stay have been completed unless listed below. Please discuss all pending results with your provider listed above in these instructions. ?? No incomplete studies found What to do next Instructions From Your Doctor Discharge Orders Scheduled Follow-Up Appointments Monday 11:20 AM EST ?? With: Crystal Cyr MD Where: [facility] [address] [place] [address]- You Need to Schedule the Following Appointments Follow Up with??Crystal Cyr When??Only if needed Where: [address] [facility] [place] [address] [facility] (1) Follow Up with??Effie Huerta When??In 0 days Where: [address] [place] [address]- [facility] (2) Discharge Medications NGUYEN BARROW :1965 Visit Date:08/12/2022 Medications: Please continue your medications until treatment is completed or stopped by your provider. Medications not listed below should be discontinued. Discuss any questions related to medications with your provider. What How Much When Instructions Next Dose New Nystatin Topical (nystatin topical 875177 u/ gm powder) 1 sammie Topically Twice a day Refills: [address] [facility]/pharmacy #[id number] New Phenazopyridine (phenazopyridine 200 mg oral tablet) 1 tab(s) Oral 3 times a day Duration: [address] [facility]/pharmacy #[id number] 12 23 today Unchanged Aspirin (aspirin 81 mg oral delayed release tablet) 81 Milligram Oral Daily Unchanged Cetirizine (ZyrTEC 10 mg oral tablet) 1 tab(s) Oral Daily Unchanged Fluoxetine (FLUoxetine 40 mg oral capsule) 1 capsule Oral Daily Unchanged Ibuprofen (ibuprofen 600 mg oral tablet) 1 tab(s) Oral 3 times a day Unchanged Lorazepam (LORazepam 0.5 mg oral tablet) 1 tab(s) Oral Twice a day Unchanged Losartan (losartan 25 mg oral tablet) 50 Milligram Oral Daily Unchanged Methylphenidate (methylphenidate 5 mg oral tablet) 1 tab(s) Oral Daily Unchanged Metoclopramide (Reglan 10 mg oral tablet) 1 tab(s) Oral Every 6 hours Unchanged Metoprolol (metoprolol 25 mg oral tablet) 12.5 Milligram Oral Twice a day Unchanged mirabegron (mirabegron 25 mg oral tablet, extended release) 1 tab(s) Oral Daily Unchanged Oxycodone (oxyCODONE 5 mg oral capsule) 1 capsule Oral Every 4 hours as needed for Pain , Severe Unchanged Rosuvastatin (rosuvastatin 5 mg oral tablet) 2 tab(s) Oral Daily at Bedtime Unchanged Trazodone (traZODone 50 mg oral tablet) 1 tab(s) Oral Daily at Bedtime Pharmacy Information [facility]/pharmacy #[id number]: [address] [place], [place] [id number] [phone] Test Results Below is a partial list [...] Surgery Medical Daystay Surgical Overnight Discharge Instructions?? Valuables and Belongings I fully understand and agree that [facility] accepts no responsibility for all my personal [...] encouraged to send valuables and belongings home. ?? Review of Valuable and Belonging List: With patient Date for Pt to Sign Valuables/Belongings: 08/12/22 13:41:00 ?? Valuables & Belongings ?? Clothes Electronic devices Jewelry Monetary Items Personal devices Miscellaneous Medications (Valuables) Valuables at Bedside Jacket, Pants, Shirt, Shoes, Undergarments Cell phone Rings Wallet Glasses, Walker ? Valuables Sent Home ? Valuables Sent to Security ? Other Discharge Information ? Pulmonary Rehab Status?? Pulmonary Rehab Discharge Status?? Respiratory Rate:??12 br/min??Low ? Common Emergency Awareness Tips IS IT [...] are strongly encouraged to quit. Please call [facility] [employer] [facility] at [phone] or [phone] ([phone]) or log in to [email or web address] for referrals to smoking cessation programs. ?? The National Suicide Prevention Hotline is available 13/03 if you or someone you know needs to find a reason to keep living. By calling 0-948-554-[employer] (6975) you'll be connected to a skilled, trained counselor at a crisis center in your area. INPATIENT DISCHARGE INSTRUCTIONS SIGNATURE DOTTIE BARROWBIANCANGUYEN Location:[facility] Registration Date and Time:08/12/2022 11:59 EST Primary Care Physician: Effie Huerta MD, NGUYEN RUIZ, have received the above patient education materials/instructions and have verbalized understanding. If ambulance or transport services are being used I further acknowledge being given a choice of service. ?? If you need to contact me, please call me at this number: . Patient/Sheet Heater Name: Patient/Sheet Heater Signature: Relationship to Patient: Witness Name/Signature: Date: * Emily Srinivasan RN: PERFORM, SIGN, VERIFY Event Display: Patient Education Handout Authored Date: * Emily Srinivasan RN: PERFORM Event Display: Patient Education Leaflets Authored Date: Surgery Medical Daystay Surgical Overnight Discharge Instructions [...] should not drive or drink alcohol. ? Patient Care team information Care Team Personnel Name: Rudolph Linares Position: [facility] Cardio/Pulm Mgr [place] [place] Member Role: Primary Care Nurse Name: Alonso Mack MD Position: [facility] Physician (General Medicine) Member Role: Lifetime Consulting Physician Address: Address: [address] [place] [address] [place] [address]- Name: Effie Huerta MD Position: Reference Physician Member Role: PCP Address: Address: [address] [place] [address] [place] [address]- Name: Karolina Rubalcava RN Position: S RN Member Role: Primary Care Nurse Name: Lara Kumar RN Position: S RN Supv Member Role: Primary Care Nurse Name: Evette Matthews RN Position: S RN Member Role: Primary Care Nurse Care Team Related Persons Name: DORON BARROW Address: [address] [place] [address] Name: DORON BARROW Address: home [address] [place] [address]
--- OUTSIDE RECORDS SUMMARY | 2023-09-25 14:36 | XMS_ITS | Continuity of Care Document ---
Author Name Unknown Organization [facility] BERD norderTal[facility] Address [address] [place] [address], 4t [place] [address]- Care Team Providers Care Deputy General Counsel Name Role Phone Bradley WYATT, Effie Zazueta Primary Care Physician [place] [facility] [place]): 10[place]26/22 - 11/25/22 [facility] [employer] [facility] [address] [facility], [address]th [place], [place] [address] Attending Physician: Lizabeth Guzman Admitting Physician: Lizabeth Guzman Referring Physician: Lizabeth Guzman Allergies, Adverse Reactions, Alerts Substance Reaction Severity [...] Gm, 1 Refills, Maintenance, 08/18/22 15:12:00 EST, [facility]/pharmacy #[id number], Partial fill upon patient request if the [...] tablet, 11 Refills, Maintenance, 02/09/22 10:53:00 EDT, [facility]/pharmacy #[id number], Partial fill upon patient request if the prescription is for a schedule II opioid drug., 152.4, cm, 02/09/22 10:17:00 EDT, Height, 72.6... Start Date: 02/09/22 Status: Ordered mirabegron 50 mg oral tablet, extended release 1 tablet = 50 mg, By Mouth, Daily, do not crush or chew, # 30 tablet, 11 Refills, Maintenance, 10/26/22 11:14:00 EST, ER Tablet, [facility]/pharmacy #[id number], Partial fill upon patient request if the prescription is for a schedule II opioid drug., 155, cm, 030... Start Date: 10/26/22 Status: Ordered nystatin topical [id number] u/gm powder 1 application, Topically, 2 times a day, # 60 Gm, 3 Refills, Maintenance, 08/12/22 14:08:00 EST, Powder, [id number], Partial fill upon patient request if the [...] Care Team Personnel Name: Rudolph Linares Position: [facility] Cardio/Pulm Mgr ([facility]) Member Role: Primary Care Nurse Name: Alonso Mack MD Position: [facility] Physician (General Medicine) Member Role: Lifetime Consulting Physician Address: Address: [address] [facility] [place] [address]- [place] Name: Effie Huerta MD Position: Reference Physician Member Role: PCP Address: Address: [address] [place] [address]- Name: Karolina Rubalcava RN Position: S RN Member Role: Primary Care Nurse Name: Lara Kumar RN Position: S RN Supv Member Role: Primary Care Nurse Name: Evette Matthews RN Position: S RN Member Role: Primary Care Nurse Care Team Related Persons Name: DORON BARROW Address: home [address] [place] [address] Name: DORON BARROW Address: home [address] [place] [address]
--- OUTSIDE RECORDS SUMMARY | 2023-09-25 14:36 | XMS_ITS | Continuity of Care Document ---
Author Name Unknown Organization [facility] Aquilino nCrowd [employer]usions [facility] Address [address] [place] [address], 4t [place] [address]- Care Team Providers Care Car Shunter Name Role Phone Effie Huerta MD Primary Care Physician Encounter [facility] Date(s): 07/27/22 - 08/26/22 [facility] [address] [place] [address], [address]th [place], [place] [address] Attending Physician: Lizabeth Guzman Admitting Physician: Lizabeth [...] 42.5 Gm, 1 Refills, Maintenance, 08/18/22 15:12:00 [facility], [facility]/pharmacy #[id number], Partial fill upon patient request if the [...] tablet, 11 Refills, Maintenance, 02/09/22 10:53:00 EDT, [facility]/pharmacy #[id number], Partial fill upon patient request if the prescription is for a schedule II opioid drug., 152.4, cm, 02/09/22 10:17:00 EDT, Height, 72.6... Start Date: 02/09/22 Status: Ordered nystatin topical [id number] u/gm powder 1 application, Topically, 2 times a day, # 60 Gm, 3 Refills, Maintenance, 08/12/22 14:08:00 EST, Powder, [facility]/pharmacy #[id number], Partial fill upon patient request [...] Care Team Personnel Name: Rudolph Linares Position: [facility] Cardio/Pulm Mgr ([facility]) Member Role: Primary Care Nurse Name: Alonso Mack MD Position: [facility] Physician (General Medicine) Member Role: Lifetime Consulting Physician Address: Address: [address] [place] [address] [place] [address]- Name: Effie Huerta MD Position: Reference Physician Member Role: PCP Address: Address: [address] [place] [id number] Name: Karolina Rubalcava RN Position: [facility] RN Member Role: Primary Care Nurse Name: Lara Kumar RN Position: S RN Supv Member Role: Primary Care Nurse Name: Evette Matthews RN Position: S RN Member Role: Primary Care Nurse Care Team Related Persons Name: DORON BARROW Address: [address] [place] [address] Name: DORON BARROW Address: [address] [place] [address]
--- OUTSIDE RECORDS SUMMARY | 2023-09-25 14:36 | XMS_ITS | Continuity of Care Document ---
Author Name Unknown Organization [facility] [employer] [facility] Address [address] [place] [address], 4[place] [address]- Care Team Providers Care Manager Heart Name Role Phone Bradley WYATT, Effie Zazueta Primary Care Physician Encounter [facility] Date(s): 04/11/22 - 05/11/22 [facility] [address] [facility], 4th [place] [address]- Allergies, Adverse Reactions, Alerts Substance Reaction Severity [...] Gm, 11 Refills, Maintenance, 02/09/22 10:52:00 EDT, [facility]/pharmacy #[id number], Partial fill upon patient request if the [...] tablet, 11 Refills, Maintenance, 02/09/22 10:53:00 EDT, [facility]/pharmacy #[id number], Partial fill upon patient request if the prescription is for a schedule II opioid drug., 152.4, cm, 02/09/22 10:17:00 EDT, Height, 72.6... Start Date: 02/09/22 Status: Ordered Oxybutynin = 5 mg, Daily, [...] tablet, 0 Refills, Maintenance, 05/09/22 8:35:00 EDT, [id number], 152.4, cm, 02/09/22 10:17:00 EDT, Height, 72.6, kg, 02/09/22 10:17:00 EDT, Dry Weight Start Date: 05/09/22 Status: Ordered ZyrTEC 10 mg oral tablet 1 tablet = 10 mg, By Mouth, Daily, # 30 tablet, 0 Refills, Maintenance, 07/22/17 5:59:32, Tablet Start Date: 07/22/17 Status: Ordered Problem List Condition Effective Dates Status Health Status Inform ant Anxiety(Confirmed) Active HTN (hypertension)(Confirmed) Active Hypertriglyceridemia(Confirmed) Active Obese class I(Confirmed) Active Major depression, recurrent(Confirmed) Active Social History Social History Type Response Smoking Status Former smoker, quit more than 30 days ago entered on: 02/09/22 Sex Implantable Device List Procedure Provider Procedure Date Device Type Site Craniectomy Posterior Fossa Decompressseferino Su MD (Neurosurgeon), Gabriele Zazueta 07/23/17 Unknown Brain Device Identifier Serial Number Lot or Batch Number Manufacturing Date Expiration Date Distinct Identification Code MRI Safety Implantable Status Assigning Authority Unknown Unknown Unknown Unknown 11/19/19 Unknown Unknown Active Unk nown Care Team Personnel Name: Effie Huetra MD Address: [address] [place] [address]-
--- OUTSIDE RECORDS SUMMARY | 2023-09-25 14:36 | XMS_ITS | Continuity of Care Document ---
Author Name Unknown Organization [facility] [employer] [employer] [facility] Address [address] [place] [address], 4[place] [address]- Care Team Providers Care Oil Refinery Operator Name Role Phone Effie Huerta MD Primary Care Physician [id number] Date(s): 03/01/23 - 06/29/23 [facility] [employer] [facility] [address] [facility], 4th [place], [place] [address] Attending Physician: Crystal Cyr MD Referring Physician: [...] 42.5 Gm, 1 Refills, Maintenance, 08/18/22 15:12:00 [facility], [facility]/pharmacy #[id number], Partial fill upon patient [...] Refills, Maintenance, 10/26/22 11:14:00 EST, ER Tablet, [facility]/pharmacy #[id number], Partial fill upon patient request if the prescription is for a schedule II opioid drug., 155, cm, ... Start Date: 10/26/22 Status: Ordered rosuvastatin 5 [...] Team Personnel Name: Evette Aparicio RN Position: S RN Member Role: Primary Care Nurse Name: Alonso Mack MD Position: [facility] Physician (General Medicine) Member Role: Lifetime Consulting Physician Address: Address: [address] [place] [address]- Name: Effie Huerta MD Position: Reference Physician Member Role: PCP Address: Address: [address] [place] [id number] Name: Karolina Rubalcava RN Position: S RN Member Role: Primary Care Nurse Name: Lara Kumar RN Position: [facility] RN Supv Member Role: Primary Care Nurse Care Team Related Persons Name: JENN BARROWA Address: [address] [place] [address] Name: DORON BARROW Address: home [address] [place] [address]
--- OUTSIDE RECORDS SUMMARY | 2023-09-25 14:36 | XMS_ITS | Continuity of Care Document ---
Author Name Unknown Organization [facility]OMEN[facility]As [facility] Address [address] [place] [address], [address] [address]- Care Team Providers Care Corrosion Engineer Name Role Phone Effie Huerta MD Primary Care Physician ( [phone] [id number] Date(s): 08/24/22 - 09/30/22 [facility] Balbina WomenINSOMENIAs [facility] [address] [place] [address], 4th [place], [place] [address] Attending Physician: Crystal Cyr MD Admitting Physician: [...] Gm, 1 Refills, Maintenance, 08/18/22 15:12:00 EST, [facility]/pharmacy #[id number], Partial fill upon patient request if the [...] 11 Refills, Maintenance, 02/09/22 10:53:00 EDT, [facility]/pharmacy #[id number], Partial fill upon patient request if the prescription is for a schedule II opioid drug., 152.4, cm, 02/09/22 10:17:00 EDT, Height, 72.6... Start Date: 02/09/22 Status: Ordered nystatin topical [id number] u/gm powder 1 application, Topically, 2 times a day, # 60 Gm, 3 Refills, Maintenance, 08/12/22 14:08:00 EST, Powder, [facility]/pharmacy #[id number], Partial fill upon patient [...] Care Team Personnel Name: Rudolph Linares Position: [facility] Cardio/Pulm Mgr ([facility]) Member Role: Primary Care Nurse Name: Alonso Mack MD Position: [facility] Physician (General Medicine) Member Role: Lifetime Consulting Physician Address: Address: [address] [place] [address] [place] [address]- Name: Effie Huerta MD Position: Reference Physician Member Role: PCP Address: Address: [address] [place] [id number] Name: Karolina Rubalcava RN Position: [facility] RN Member Role: Primary Care Nurse Name: Lara Kumar RN Position: S RN Supv Member Role: Primary Care Nurse Name: Evette Matthews RN Position: S RN Member Role: Primary Care Nurse Care Team Related Persons Name: INADAVY DORON Address: home [address] [place] [address] Name: DORON BARROW Address: home [address] [place] [address]
--- OUTSIDE RECORDS SUMMARY | 2023-09-25 14:36 | XMS_ITS | Continuity of Care Document ---
Author Name Unknown Organization [facility] [employer] [employer] [facility] Address [address] [place] [address], 4[place] [address]- Care Team Providers Care Sales Assistant Name Role Phone Effie Huerta MD Primary Care Physician [id number] Date(s): 06/13/23 - 06/20/23 [facility] [place] [facility] [facility] [address] [facility], 4th [place], [place] [address] Attending Physician: Crystal Cyr MD Referring Physician: [...] 42.5 Gm, 1 Refills, Maintenance, 08/18/22 15:12:00 [facility], [facility]/pharmacy #[id number], Partial fill upon patient request if the [...] Refills, Maintenance, 10/26/22 11:14:00 EST, ER Tablet, [facility]/pharmacy #[id number], Partial fill upon patient request if [...] recent to oldest [Reference Range]: 1 Height 152.40 cm (06/13/23 3:08 PM) Weight 72.7 kg (06/13/23 3:08 PM) Body Mass Index [18.5-24.99 kg/m2] 31.3 kg/m2 *>HHI* (06/13/23 3:08 PM) Blood Pressure [90-138/55-84 mm Hg] 134/ 70mm Hg (06/13/23 3:08 PM) Blood pressure sites Arm, right (06/13/23 3:08 PM) Dry Weight 72.7 kg (06/13/23 3:08 PM) Weight Obtained Via Standing scale (06/13/23 3:08 PM) Dry Weight Obtained Via Standing scale (06/13/23 3:08 PM) Social History Social History Type Response [...] Team Personnel Name: Evette Aparicio RN Position: [facility] RN Member Role: Primary Care Nurse Name: Martina WYATT, Alonso Corey Position: [facility] Physician (General Medicine) Member Role: Lifetime Consulting Physician Address: Address: [address] [place] [address] [place] [address]- Name: Effie Huerta MD Position: Reference Physician Member Role: PCP Address: Address: [address] [place] [id number] Name: Karolina Rubalcava RN Position: S RN Member Role: Primary Care Nurse Name: Lara Kumar RN Position: [facility] RN Supv Member Role: Primary Care Nurse Care Team Related Persons Name: DORON BARROW Address: [address] [place] [address] Name: DORON BARROW Address: [address] [place] [address]
--- OUTSIDE RECORDS SUMMARY | 2023-09-25 14:36 | XMS_ITS | Continuity of Care Document ---
Author Name Unknown Organization [facility] Rolle nRank [employer]les [facility] [place] Address [address] [place] [address], 4[address] [place] [address]- Care Team Providers Care Chief Resource Officer Name Role Phone Bradley WYATT, Effie Zazueta Primary Care Physician [id number] Date(s): 05/04/22 - 06/03/22 [facility] Greene[facility] [place] [address] [facility], [address]th [place], [place] [address] Attending Physician: Lizabeth Guzman Admitting Physician: Lizabeth [...] Gm, 11 Refills, Maintenance, 02/09/22 10:52:00 EDT, [facility]/pharmacy #[id number], Partial fill upon patient request if the [...] tablet, 11 Refills, Maintenance, 02/09/22 10:53:00 EDT, [facility]/pharmacy #[id number], Partial fill upon patient request if the prescription is for a schedule II opioid drug., 152.4, cm, 02/09/22 10:17:00 EDT, Height, 72.6... Start Date: 02/09/22 Status: Ordered mirabegron 25 mg oral tablet, extended release 1 tablet = 25 mg, By Mouth, Daily, # 30 tablet, 11 Refills, Maintenance, 05/31/22 17:05:00 EDT, [facility]/pharmacy #[id number], Partial fill upon patient request if [...] tablet, 0 Refills, Maintenance, 05/09/22 8:35:00 EDT, [facility], 152.4, cm, 02/09/22 10:17:00 EDT, Height, 72.6, [...] Unknown Unknown Unknown 11/19/19 Unknown Unknown Active Sara phillips Patient Care team information Personnel Name: Bradley WYATT, Effie Zazueta Address: Address: [address] [place] [address] [place], [place] [address]
--- OUTSIDE RECORDS SUMMARY | 2023-09-25 14:36 | XMS_ITS | Continuity of Care Document ---
Author Name Unknown Organization [facility] Balbina Rolle n[facility]os [facility] Address [address] [place] [address], 4[address] [place] [address]- Care Team Providers Care Structural Steel Erector Name Role Phone Bradley WYATT, Effie Zazueta Primary Care Physician [id number] Date(s): 05/31/22 - 06/07/22 [facility] GreeneA[facility] [address] [facility], 4th [place] [address]- Attending Physician: Crystal Cyr MD Allergies, Adverse Reactions, [...] Gm, 11 Refills, Maintenance, 02/09/22 10:52:00 EDT, [facility]/pharmacy #[id number], Partial fill upon patient request if the [...] tablet, 11 Refills, Maintenance, 02/09/22 10:53:00 EDT, [facility]/pharmacy #[id number], Partial fill upon patient request if the prescription is for a schedule II opioid drug., 152.4, cm, 02/09/22 10:17:00 EDT, Height, 72.6... Start Date: 02/09/22 Status: Ordered mirabegron 25 mg oral tablet, extended release 1 tablet = 25 mg, By Mouth, Daily, # 30 tablet, 11 Refills, Maintenance, 05/31/22 17:05:00 EDT, [facility]/pharmacy #[id number], Partial fill upon [...] Refills, Maintenance, 05/09/22 8:35:00 EDT, [facility], 152.4, cm, 02/09/22 10:17:00 EDT, Height, 72.6, [...] recent to oldest [Reference Range]: 1 Height 152.4 cm (05/31/22 4:54 PM) Blood Pressure [90-138/55-84 mm Hg] 128/ 66mm Hg (05/31/22 4:54 PM) Blood pressure sites Arm, right (05/31/22 4:54 PM) Social History Social History Type Response [...] phillips Patient Care team information Personnel Name: Effie Huerta MD Address: Address: [address] [place] [address]
--- OUTSIDE RECORDS SUMMARY | 2023-09-25 14:36 | XMS_ITS | Continuity of Care Document ---
Author Name Unknown Organization [facility] Address [address] [place] [address], [address] [address]- Care Team Providers Care Hide Measuring Machine Operator Name Role Phone Bradley WYATT, Effie Zazueta Primary Care Physician ( [phone] En[place] [facility] Date(s): 06/01/23 - 07/01/23 [facility] [place] [employer] [address] [facility], [address] [place], [place] [address] Allergies, Adverse Reactions, Alerts Substance Reaction Severity [...] Gm, 1 Refills, Maintenance, 08/18/22 15:12:00 EST, [facility]/pharmacy #[id number], Partial fill upon patient [...] Refills, Maintenance, 10/26/22 11:14:00 EST, ER Tablet, [facility]/pharmacy #[id number], Partial fill upon patient [...] Team Personnel Name: Evette Aparicio RN Position: [facility] RN Member Role: Primary Care Nurse Name: Martina WYATT, Alonso Corey Position: [facility] Physician (General Medicine) Member Role: Lifetime Consulting Physician Address: Address: [address] [place] [address] [place] [address]- Name: Bradley WYATT, Effie Zazueta Position: Reference Physician Member Role: PCP Address: Address: [address] [place] [address]- Name: Karolina Rubalcava RN Position: [facility] RN Member Role: Primary Care Nurse Name: Lara Kumar RN Position: [facility] RN Supv Member Role: Primary Care Nurse Care Team Related Persons Name: DORON BARROW Address: [address] [place] [address] Name: DORON BARROW Address: [address] [place] [address]
--- OUTSIDE RECORDS SUMMARY | 2023-09-25 14:36 | XMS_ITS | Continuity of Care Document ---
Author Name Unknown Organization [facility] Address [address] [place] [address], [address] [place] [address]- Care Team Providers Care Corporate Events Director Name Role Phone Effie Huerta MD Primary Care Physician [facility] Date(s): 02/09/22 - 04/30/22 [facility] Balbina GreeneLyfts [facility] [address] [facility], 4th [place] [address]- Attending Physician: Crystal Cyr MD Referring Physician: [...] Gm, 11 Refills, Maintenance, 02/09/22 10:52:00 EDT, [facility]/pharmacy #[id number], Partial fill upon patient request if the [...] tablet, 11 Refills, Maintenance, 02/09/22 10:53:00 EDT, [facility]/pharmacy #[id number], Partial fill upon patient request if the [...] Mouth, Daily, # 30 tablet, 0 Refills, 04/11/22 14:14:00 EDT, [id number], 152.4, cm, 02/09/22 10:17:00 EDT, Height, 72.6, kg, 02/09/22 10:17:00 EDT, Dry Weight Start Date: 04/11/22 Status: Ordered ZyrTEC 10 mg oral tablet [...] Active Unk nown Care Team Personnel Name: Bradley WYATT, Effie Zazueta Address: [address] [place] [id number]
--- OUTSIDE RECORDS SUMMARY | 2023-09-25 14:36 | XMS_ITS | Continuity of Care Document ---
Author Name Unknown Organization [facility] Address [address] [place] [address], [address] [place] [address]- Care Team Providers Care Car Repossessor Name Role Phone Bradley WYATT, Effie Zazueta Primary Care Physician Encounter [facility] Date(s): 08/23/22 - 09/22/22 [facility] [place] [facility] [address] [facility], 4th [place], [place] [address] Allergies, Adverse Reactions, Alerts Substance [...] Gm, 1 Refills, Maintenance, 08/18/22 15:12:00 EST, [facility]/pharmacy #[id number], Partial fill upon patient request [...] tablet, 11 Refills, Maintenance, 02/09/22 10:53:00 EDT, [facility]/pharmacy #[id number], Partial fill upon patient request if the prescription is for a schedule II opioid drug., 152.4, cm, 02/09/22 10:17:00 EDT, Height, 72.6... Start Date: 02/09/22 Status: Ordered nystatin topical [id number] u/gm powder 1 application, Topically, 2 times a day, # 60 Gm, 3 Refills, Maintenance, 08/12/22 14:08:00 EST, Powder, [facility]/pharmacy #[id number], Partial fill upon patient request [...] Care Team Personnel Name: Rudolph Linares Position: [facility] Cardio/Pulm Mgr ([facility]) Member Role: Primary Care Nurse Name: Alonso Mack MD Position: [facility] Physician (General Medicine) Member Role: Lifetime Consulting Physician Address: Address: [address] [place] [address] [place] [address]- [place] Name: Effie Huerta MD Position: Reference Physician Member Role: PCP Address: Address: [place] [address]- Name: Karolina Rubalcava RN Position: [facility] RN Member Role: Primary Care Nurse Name: Lara Kumar RN Position: [facility] RN Supv Member Role: Primary Care Nurse Name: Evette Matthews RN Position: [facility] RN Member Role: Primary Care Nurse Care Team Related Persons Name: DANIAL DORON Address: [address] [place] [address] Name: DORON BARROW Address: home [address] [place] [address]
--- OUTSIDE RECORDS SUMMARY | 2023-09-25 14:36 | XMS_ITS | Continuity of Care Document ---
Author Name Unknown Organization [facility] Address [address] [place] [address], [address] [place] [address]- Care Team Providers Care Campus Ambassador Name Role Phone Bradley WYATT, Effie Zazueta Primary Care Physician [place] [facility] [place] Date(s): 03/31/22 - 04/30/22 [facility] [employer]ilah [employer] [facility] [address] [facility], [address]th [place] [address]- Attending Physician: Lizabeth Guzman Admitting Physician: iLzabeth Guzman Referring Physician: AdmtrLizabeth Allergies, Adverse Reactions, Alerts Substance Reaction Severity [...] Gm, 11 Refills, Maintenance, 02/09/22 10:52:00 EDT, [facility]/pharmacy #[id number], Partial fill upon patient request if the [...] tablet, 11 Refills, Maintenance, 02/09/22 10:53:00 EDT, [facility]/pharmacy #[id number], Partial fill upon patient request if the [...] Personnel Name: Bradley WYATT, Effie Zazueta Address: [address] [place] [id number]
--- OUTSIDE RECORDS SUMMARY | 2023-09-25 14:37 | XMS_ITS | Summary of Care ---
Author Name Unknown Organization [facility] Address [address] [place] [address]- Encounter 08/11/17 - 10/05/17 [facility] [address] [place] [address]- Discharge Diagnosis: Hemorrhagic stroke Discharge Diagnosis: Paralysis of vocal cords Discharge Diagnosis: Acute respiratory failure Discharge Diagnosis: HTN - Hypertension Discharge Diagnosis: Major depression Discharge Diagnosis: Pulmonary embolism Discharge Diagnosis: STEMI - ST elevation myocardial infarction Attending Physician: Bobby Diamond MD Vital Signs Most recent to oldest [Reference Range]: 1 2 3 Temperature Oral F [96.4-99.1 DegF] 97.7 DegF (10/05/17 6:16 AM) 96.5 DegF (10/04/17 3:45 PM) 97.5 DegF (10/04/17 6:18 AM) Peripheral Pulse Rate [60-100 bpm] 99 bpm (10/05/17 9:22 AM) 97 bpm (10/05/17 6:16 AM) 101 bpm *HI* (10/04/17 8:24 PM) Respiratory Rate [14-20 br/min] 20 br/min (10/05/17 6:16 AM) 20 br/min (10/04/17 3:45 PM) 20 br/min (10/04/17 6:18 AM) Blood Pressure [90-140/60-90 mmHg] 136/96mmHg (10/05/17 9:22 AM) Systolic Blood Pressure [90-140 mmHg] 136 mmHg (10/05/17 6:16 AM) 147 mmHg *HI* (10/04/17 8:24 PM) Diastolic Blood Pressure [60-90 mmHg] 81 mmHg (10/05/17 6:16 AM) 89 mmHg (10/04/17 8:24 PM) Extremity used to obtain blood pressure Left Arm (09/21/17 10:29 PM) Left Arm (08/31/17 3:00 PM) Left Arm (08/17/17 4:04 PM) Cuff Size. Large (09/21/17 10:29 PM) Large (08/31/17 3:00 PM) Medium (08/12/17 12:19 PM) Diastolic Blood Pressure with Activity [60-90 mmHg] 71 mmHg (09/06/17 2:10 PM) 75 mmHg (08/23/17 9:00 AM) 65 mmHg (08/17/17 11:00 AM) Peripheral Pulse Rate with Activity 87 bpm (09/06/17 2:10 PM) 87 bpm (08/30/17 9:30 AM) 80 bpm (08/29/17 10:00 AM) Respiratory Rate with Activity 16 br/min (09/11/17 6:07 AM) Systolic Blood Pressure with Activity [90-140 mmHg] 130 mmHg (09/06/17 2:10 PM) 135 mmHg (08/23/17 9:00 AM) 102 mmHg (08/17/17 11:00 AM) Vital Signs Additional Information semi supine (08/23/17 9:00 AM) Vital Signs w/ Activity Additional Info post seated jean BP: 95/51, HR 79- supine (08/15/17 10:00 AM) Temperature Oral [35.8-37.3 DegC] 36.5 DegC (10/05/17 6:16 AM) 35.8 DegC (10/04/17 3:45 PM) 36.4 DegC (10/04/17 6:18 AM) Problem List Condition Effective Dates Status Health Status Inform ant Acute respiratory failure(Confirmed) Active Hemorrhagic stroke(Confirmed) Active HTN - Hypertension(Confirmed) Active Major depression(Confirmed) Active Paralysis of vocal cords(Confirmed) Active Pulmonary embolism(Confirmed) Active STEMI - ST elevation myocard ial infarction(Confirmed) Active Allergies, Adverse Reactions, Alerts Substance Reaction Severity Status lisinopril Active Medications aspirin 81 mg oral tablet, chewable 81 mg = 1 tab, Tab-Chew, G-TUBE, Daily, 0 Refill(s) Start Date: 10/04/17 Status: Ordered atorvastatin 20 mg oral tablet 20 mg = 1 tab, Tab, Oral, QHS, 30 tab, 0 Refill(s), Print Requisition Start Date: 10/04/17 Status: Ordered Carafate 1 g/10 mL oral suspension 1 gm = 10 mL, Susp-Oral, Oral, QID PRN, 1,200 mL, 0 Refill(s), dyspepsia, Print Requisition Start Date: 10/04/17 Status: Ordered Vegyrfbn-AVP-8 0.1 mg/24 hr transdermal film, extended release 1 patch, Film, TD, q7day, 5 patch, 0 Refill(s), Print Requisition Start Date: 10/04/17 Status: Ordered cefuroxime 250 mg oral tablet 250 mg, = 1 tab, Tab, Oral, BID, 6 tab, 0 Refill(s), Dispense: 3 day, Stop date 10/07/17 14:49:00 EST, Print Requisition Start Date: 10/04/17 Stop Date: 10/07/17 Status: Ordered clopidogrel 75 mg oral tablet 75 mg = 1 tab, Tab, G-TUBE, Daily, 30 tab, 0 Refill(s), Print Requisition Start Date: 10/04/17 Status: Ordered Flonase 50 mcg/inh nasal spray 100 mcg, 2 spray, [place]-Nasal, Nasal, Daily, 0 Refill(s), to left nare Start Date: 10/04/17 Status: Ordered FLUoxetine 20 mg oral capsule 40 mg = 2 cap, Cap, G-TUBE, Daily, 60 cap, 0 Refill(s), Print Requisition Start Date: 10/04/17 Status: Ordered guaiFENesin 100 mg/5 mL oral liquid 200 mg = 10 mL, Liquid, G-TUBE, TID PRN, 0 Refill(s), Cough Start Date: 10/04/17 Status: Ordered KlonoPIN 1 mg oral tablet 1 mg = 1 tab, Tab, G-TUBE, QHS, 7 tab, 0 Refill(s), Print Requisition Start Date: 10/04/17 Stop Date: 10/11/17 Status: Ordered lactobacillus acidophilus oral capsule 1 cap, Cap, G-TUBE, BID, 0 Refill(s) Start Date: 10/04/17 Status: Ordered loperamide 2 mg oral capsule 2 mg = 1 cap, Cap, G-TUBE, q2hr PRN, 0 Refill(s), max of 16mg per day, Diarrhea Start Date: 10/04/17 Status: Ordered losartan 50 mg oral tablet 50 mg = 1 tab, Tab, G-TUBE, Daily, 30 tab, 0 Refill(s), Print Requisition Start Date: 10/04/17 Status: Ordered metoclopramide 5 mg/5 mL oral syrup 10 mg = 10 mL, Syrup, G-TUBE, ACHS, 280 mL, 0 Refill(s), Dispense: 7 day, Stop date 10/11/17 14:41:00 EST, Print Requisition Start Date: 10/04/17 Stop Date: 10/11/17 Status: Ordered metoprolol tartrate 25 mg oral tablet 12.5 mg, 0.5 tab, Tab, G-TUBE, BID, 30 tab, 0 Refill(s), Print Requisition Start Date: 10/04/17 Status: Ordered nystatin 100,000 units/mL oral suspension 500,000 units, = 5 mL, Susp-Oral, Oral, QID, 140 mL, 0 Refill(s), Dispense: 7 day, Stop date 10/11/17 14:41:00 EST, Print Requisition Start Date: 10/04/17 Stop Date: 10/11/17 Status: Ordered oxyCODONE 5 mg oral tablet 5 mg = 1 tab, Tab, G-TUBE, q6hr PRN, 28 tab, 0 Refill(s), Dispense: 7 day, PAIN (Scale 4-10), Stop date 10/11/17 14:40:00 EST, Print Requisition Start Date: 10/04/17 Stop Date: 10/11/17 Status: Ordered promethazine 12.5 mg oral tablet 12.5 mg = 1 tab, Tab, Oral, q4hr PRN, 42 tab, 0 Refill(s), Dizziness, Print Requisition Start Date: 10/04/17 Stop Date: 10/11/17 Status: Ordered Ritalin 5 mg oral tablet 5 mg = 1 tab, Tab, G-TUBE, BIDWBL, 60 tab, 0 Refill(s), Print Requisition Start Date: 10/04/17 Status: Ordered sodium chloride 0.65% nasal solution 1 spray, Soln, Nasal, q3hr PRN, 0 Refill(s), Dry nasal passages Start Date: 10/04/17 Status: Ordered traZODone 50 mg oral tablet 50 mg = 1 tab, Tab, G-TUBE, QHS, 30 tab, 0 Refill(s), Print Requisition Start Date: 10/04/17 Status: Ordered traZODone 50 mg oral tablet 12.5 mg = 0.25 tab, Tab, G-TUBE, qAM, 7.5 tab, 0 Refill(s), Print Requisition Start Date: 10/04/17 Status: Ordered Results LABORATORY Most recent to oldest [Reference Range]: 1 2 3 Glucose POC RALS [74-106 mg/dL] 102 mg/dL (08/29/17 7:31 PM) 92 mg/dL (08/29/17 4:30 PM) 100 mg/dL (08/29/17 5:59 AM) Estimated Creatinine Clearance 71.31 mL/min (09/30/17 6:26 AM) 71.31 mL/min (09/29/17 9:17 AM) 83.61 mL/min (09/24/17 6:54 AM) Creatinine Level 0.68 mg/dL (09/28/17 9:17 AM) 0.58 mg/dL (09/16/17 12:47 PM) 0.59 mg/dL (09/09/17 11:58 AM)
--- NOTE | 2023-09-25 14:55 | ECG_ITS ---
Test Reason : CHEST PAIN Blood Pressure : / mmHG Vent. Rate : 050 BPM Atrial Rate : 050 BPM P-R Int : 162 ms QRS Dur : 126 ms QT Int : 512 ms P-R-T Axes : 009 -14 007 degrees QTc Int : 466 ms Sinus bradycardia Right bundle branch block Abnormal ECG When compared with ECG of 15-FEB-2019 19:21, Right bundle branch block is now Present Referred By: Aylin Phillips Electronically Signed By:SILVIA SAINZ
--- NOTE | 2023-09-25 14:56 | ED.GENADULT ---
HPI - General Adult General Chief complaint: General Medical Stated complaint: R ARM PAIN,BUE/BLE NUMB WHILE DRIVING PER EMS Time Seen by Provider: 09/25/23 14:46 Source: patient Mode of arrival: EMS Limitations: no limitations History of Present Illness HPI narrative: Patient comes to the emergency room via EMS. Patient states that earlier today she went to urgent care because she has been having URI symptoms for 10 days. They could not see her, then they sent her to her PCP. The PCP sent her to a different urgent care, she could not find the urgent care and therefore she went home. Then she decided to try a 3rd different urgent care. On the way there, patient states that she had having right arm tingling and bilateral leg tingling. Patient states that she has had this for 10 days as well. Patient pulled to the side and called 911. Related Data Previous Rx's Medication Instructions Recorded oxybutynin chloride 10 mg 10 mg PO DAILY 30 days #30 tabs 10/26/20 tablet,extended release 24 hr ondansetron 4 mg disintegrating 4 mg PO Q8H PRN nausea and 04/02/23 tablet vomiting #7 tabs albuterol sulfate 90 mcg/actuation 2 puff inhalation Q4-6H PRN 09/25/23 aerosol inhaler shortness of breath or wheezing #6.7 grams Allergies Allergy/AdvReac Type Severity Reaction Status Date / Time lisinopril [LISINOPRIL] Allergy Severe ANGIOEDEMA Verified 04/02/23 11:50 Review of Systems Review of Systems: Constitutional : No Weight loss, No Fever, No Chills, No Night Sweats, No Fatigue, No Malaise ENT/Mouth : No Hearing loss, No Ear Pain, No Nasal Congestion, No Sinus Pain, No Hoarseness, No sore throat, No Rhinorrhea, No Swallowing Difficulty Eyes: No Eye Pain, No Swelling, No Redness, No Foreign Body, No Discharge, No Vision Changes Cardiovascular : No Chest Pain, No SOB, No Dyspnea on Exertion, No Orthopnea, No Edema, No Palpitations Respiratory : No Cough, No Sputum, No Wheezing, No Smoke Exposure, No Dyspnea Gastrointestinal : No Nausea, No Vomiting, No Diarrhea, No Constipation, No abdominal Pain, No Hematochezia, No Melena Genitourinary : no irregular bleeding, No Dysuria, No Urinary Frequency, No Hematuria, No Urinary Incontinence, No Urgency, No Flank Pain, No Urinary Flow Changes, No Hesitancy Musculoskeletal : No joint pain, No Myalgias, No Joint Swelling Skin : No Skin Lesions, No rash Neuro : No Weakness, complaining of tingling sensation in right arm and both legs. Patient states that the sensation is already gone. Psych : Patient anxious, asking her nurse if she is going to Heme/Lymph: No Bruising, No Bleeding,No Lymphadenopathy Endocrine : No Polyuria, No Polydipsia, No Temperature Intolerance [facility] Past Medical History Medical History (Updated 09/25/23 @ 16:39 by Aylin Phillips MD) Hypertension Anxiety Social History Social History Alcohol intake: never Smoked in Last 30 Days: No Use of substances other than those prescribed or required for medical reasons: No Substance Use Type: Marijuana Advance Directives: No Advance Directives Information Provided: No Physical Exam ED Vital Signs: Vital Signs - 24 hr 09/25/23 14:26 09/25/23 14:28 Temperature 98.3 F 97.6 F Pulse Rate 60 53 Respiratory Rate 16 16 Blood Pressure 175/88 H 182/97 H Pulse Oximetry 95 98 Oxygen Delivery Method Room Air Room Air BMI result Body Mass Index 42.1 Const Other: Appearance: Alert. Oriented X3. No acute distress. Eyes: Pupils equal, round and reactive to light. ENT: Pharynx normal. Neck: Normal inspection. Neck supple. No lymph nodes noted. No crepitus CVS: Normal heart rate and rhythm. Pulses normal. Normal S1 and S2 Respiratory: No respiratory distress. Breath sounds normal. No Wheezing. No rales Abdomen: Soft and nontender. No rigidity. No distention. Skin: Skin warm and dry. Normal skin color. Normal skin turgor. Extremities: No lower extremity edema. No Lacerations. No Rash Neuro: Oriented X 3. No motor deficit. No sensory deficit. Moving all extremities. No slurred speech. CN 2 through 12 grossly intact Psych: calm, cooperative, anxious NIH Stroke Scale Internal: Initial- Upon Arrival Level of Consciousness: Alert Level of Consciousness Questions: Answers both questions correctly Level of Consciousness Commands: Performs both tasks correctly Best Gaze: Normal Visual: No visual loss Facial Palsy: Normal Motor Arm (Right): No drift Motor Arm (Left): No drift Motor Leg (Right): No drift Motor Leg (Left): No drift Limb Ataxia: Absent Sensory: Normal Best Language: No aphasia Dysarthia: Normal Extinction and Inattention: No abnormality Score: 0 Course Course Course Narrative: -patient's labs and imaging pending Medical Decision Making Medical Decision Making [facility] Narrative: -patient has completely clear sounds, no wheezing, oxygen saturation 99% on room air, speaking full sentences Patient has chronic leukocytosis, normal chemistry, normal troponin, normal magnesium, serology negative for COVID, urinalysis positive for blood, no UTI -my interpretation of chest x-ray: No pneumonia suspected. -I discussed the urinalysis with the patient, patient has chronic microscopic hematuria. Patient states that she does not remember if she had a cystoscopy. Patient will go search her files at home and ask her significant other. I discussed with the patient that I will give her the phone number for Urology as she needs to follow-up with Urology -I discussed with the patient that the tingling sensation that she has in her arms legs likely secondary to stenosis versussciatica versus versus herniated disc. Patient instructed to follow-up with her primary care physician as she will need physical therapy and/or MRI -of note, after the patient was discharged, patient requested an inhaler? Patient does not have history of asthma but strongly believes it will help her symptoms Differential Diagnosis Differential Diagnoses: The differential diagnosis associated with the presentation includes (As above) Admission/Observation Consideration of admission/observation: Escalation of care including admission/observation considered (Given patient's complex symptoms on arrival, admission was considered) Lab Data [facility] Lab Attestation statement: I reviewed the patient's lab results. 09/25/23 15:24 09/25/23 15:24 Labs: Lab Results 09/25/23 09/25/23 09/25/23 Range/Units 15:24 15:44 15:45 WBC 11.7 H (4.8-10.8) X10*3/uL RBC 4.45 (4.20-5.50) X10*6/uL Hgb 13.8 (12.0-16.0) g/dl Hct 40.4 (37.0-47.0) % MCV 90.8 (80.0-98.0) fL MCH 31.0 (27.0-33.0) pg MCHC 34.2 (31.0-35.0) g/dl RDW 12.2 (11.0-16.0) % Plt Count 259 (160-400) X10*3/uL MPV 10.2 (9.4-12.3) fL Immature Gran % (Auto) 0.3 (0.0-0.4) % Neut % (Auto) 65.2 (45-73) % Lymph % (Auto) 27.1 (20-40) % [place] % (Auto) 5.6 (2-11) % Eos % (Auto) 1.5 (0-4) % Baso % (Auto) 0.3 (0-2) % Lymph # (Auto) 3.2 (1.2-4.9) X10*3/uL [place] # (Auto) 0.7 (0.1-1.2) X10*3/uL Eos # (Auto) 0.2 (0.0-0.4) X10*3/uL Baso # (Auto) 0.0 (0.0-0.2) X10*3/uL Abs Immat Gran (auto) 0.04 H (0.00-0.03) X10*3/uL Absolute Neuts (auto) 7.7 (2.0-8.3) x10*3/uL Absolute Nucleated RBC 0.000 (0.0-0.012) X10*3/uL Nucleated RBC % (auto) 0.0 (0.0-0.2) /100WBC Sodium 141 (135-145) mmol/L Potassium 4.5 (3.3-5.1) mmol/L Chloride 109 H (96-108) mmol/L Carbon Dioxide 24 (22-29) mmol/L Anion Gap 13 (12-20) BUN 13 (9-16) mg/dL Creatinine 0.75 (0.5-1.4) mg/dL Estim Creat Clear Calc 88.9 Estimated GFR > 60 Random Glucose 83 (60-115) mg/dL Calcium 8.4 D (8.4-10.2) mg/dL Magnesium 2.1 (1.6-2.6) mg/dL Total Bilirubin 0.3 (0.0-1.0) mg/dL Direct Bilirubin 0.1 (0.0-0.5) mg/dL AST 16 (5-31) U/L ALT 13 (0-31) U/L Alkaline Phosphatase 93 (39-117) U/L Troponin I High Sens 9.2 (<3.5-17.0) ng/L Total Protein 6.8 (6.5-8.0) g/dL Albumin 3.5 (3.5-5.0) g/dL Urine Color Yellow Urine Appearance Clear Urine pH 7.5 (5.0-9.0) Ur Specific [place] 1.010 (1.005-1.025) Urine Protein Negative (Neg-Trace) mg/dL Urine Glucose (UA) Negative (Negative) mg/dL Urine Ketones Negative (Negative) mg/dL Urine Blood Trace H (Negative) Urine Nitrite Negative (Negative) Ur Leukocyte Esterase Trace H (Negative) Urine RBC 3-5 H (0-2) /HPF Urine WBC 0-5 (0-5) /HPF Ur Squamous Epith Cells 3-5 (0-2) /HPF Urine Bacteria None Seen (None Seen) Hyaline Casts 0-2 (0-2) /LPF Urine Opiates Screen Not Detected (Not Detect) Urine Fentanyl Screen Not Detected (Not Detect) Ur Barbiturates Screen Not Detected (Not Detect) Ur Phencyclidine Scrn Not Detected (Not Detect) Ur Amphetamines Screen Not Detected (Not Detect) U Benzodiazepines Scrn Not Detected (Not Detect) Urine Cocaine Screen Not Detected (Not Detect) U Marijuana (THC) Screen POSITIVE H (Not Detect) COVID-19 (NATHALY) Negative (Negative) COVID-19 Clin Com See Note Independent Interpretation I performed an independent interpretation of an: EKG (My interpretation of EKG, normal sinus rhythm, heart rate 50, no ST segment depression or elevation, T-wave inversion with right bundle-branch block, QTc 466) and Plain X-Ray Radiology Impression Discussion of test interpretation with radiology: I have reviewed the radiologist's reading. Radiologist Impression: FINDINGS: No significant abnormality is noted involving the heart, lungs, mediastinum, bony thorax or soft tissues. XR/XR chest 1V IMPRESSION: Unremarkable chest examination. Critical Care Time Critical Care Time Critical Care Time: Yes Total Critical Care Time: 60 Attestation: I have personally provided critical care time. Time includes review of lab data, radiology results, discussion with consultants, and monitoring for potential decompensation. Intervention performed as documented. Discharge Plan Discharge Clinical Impression: Viral upper respiratory tract infection, Sciatica, Hematuria due to chronic cystitis Patient Disposition: Home, Self-Care Instructions: Sciatica (ED), Viral Syndrome (ED) Prescriptions: New albuterol sulfate 90 mcg/actuation HFA aerosol inhaler 2 puff inhalation Q4-6H PRN (Reason: shortness of breath or wheezing) Qty: 6.7 0RF No Action oxybutynin chloride 10 mg tablet extended release 24hr 10 mg PO DAILY 30 Days Qty: 30 0RF ondansetron 4 mg tablet,disintegrating 4 mg PO Q8H PRN (Reason: nausea and vomiting) Qty: 7 0RF Referrals: Galdino Hill MD [Physician] - 10/02/23 (Chronic hematuria) Interventions: ED Discharge Assessment Last Done: 09/25/23 17:57
[2023-09-25 15:30] LABS: MANUAL DIFF FLAG NO
[2023-09-25 15:31] LABS: Basophils Percent Auto 0.3 % (0-2); Eosinophils Absolute Auto 0.2 X10*3/uL (0.0-0.4); Eosinophils Percent Auto 1.5 % (0-4); Hematocrit 40.4 % (37.0-47.0); Hemoglobin 13.8 g/dl (12.0-16.0); Imm Gran Abs Auto 0.04 X10*3/uL (0.00-0.03); Imm Gran Pct Auto 0.3 % (0.0-0.4); Lymphocytes Absolute Auto 3.2 X10*3/uL (1.2-4.9); Lymphocytes Percent Auto 27.1 % (20-40); Mean Corpuscular HGB Conc 34.2 g/dl (31.0-35.0); Mean Corpuscular Volume 90.8 fL (80.0-98.0); Mean Platelet Volume 10.2 fL (9.4-12.3); Monocytes Absolute Auto 0.7 X10*3/uL (0.1-1.2); Monocytes Percent Auto 5.6 % (2-11); Neutrophils Absolute Auto 7.7 x10*3/uL (2.0-8.3); Neutrophils Percent Auto 65.2 % (45-73); Platelet Count 259 X10*3/uL (160-400); Red Blood Count 4.45 X10*6/uL (4.20-5.50); Red Cell Distribution Width 12.2 % (11.0-16.0); White Blood Count 11.7 X10*3/uL (4.8-10.8)
[2023-09-25 15:52] LABS: Troponin-I High Sensitivity 9.2 ng/L (<3.5-17.0)
[2023-09-25 15:53] LABS: Alanine Aminotransferase 13 U/L (0-31); Albumin Level 3.5 g/dL (3.5-5.0); Alkaline Phosphatase 93 U/L (39-117); Anion Gap 13 (12-20); Aspartate Amino Transferase 16 U/L (5-31); Bilirubin Direct 0.1 mg/dL (0.0-0.5); Bilirubin Total 0.3 mg/dL (0.0-1.0); Blood Urea Nitrogen 13 mg/dL (9-16); Calcium 8.4 mg/dL (8.4-10.2); Carbon Dioxide 24 mmol/L (22-29); Chloride 109 mmol/L (96-108); Creatinine Clr Calc Pharmacy 88.9; Estimated Glomerular Filt Rate > 60; Glucose Random 83 mg/dL (60-115); Magnesium 2.1 mg/dL (1.6-2.6); Potassium 4.5 mmol/L (3.3-5.1); Sodium 141 mmol/L (135-145); Total Protein 6.8 g/dL (6.5-8.0)
[2023-09-25 15:56] LABS: COVID-19 Test Negative (Negative); IDNOW Serial# 152EDE1D
[2023-09-25 16:14] LABS: Appearance Urine Clear; Color Urine Yellow; Glucose Urine UA Negative (Negative); Leukocyte Esterase Urine Trace (Negative); Nitrite Urine Negative (Negative); PH 7.5 (5.0-9.0); UMIC TRIGGER UACC YES; Urine Blood Trace (Negative); Urine Ketones Negative (Negative); Urine Protein Negative (Neg-Trace)
[2023-09-25 16:17] LABS: Bacteria Urine None Seen (None Seen); Hyaline Casts Urine 0-2 /LPF (0-2); WBC Urine 0-5 /HPF (0-5)
[2023-09-25 16:20] LABS: Amphetamine Screen Urine Not Detected (Not Detect); Barbiturates, Urine Not Detected (Not Detect); Benzodiazepines Screen Urine Not Detected (Not Detect); Cannabinoid Screen Urine POSITIVE (Not Detect); Cocaine Screen Urine Not Detected (Not Detect); Fentanyl, urine Not Detected (Not Detect); Opiate Screen Urine Not Detected (Not Detect); Phencyclidine Screen Urine Not Detected (Not Detect)
== END 2023-09-25 18:20 | disposition home or self-care (01) ==
PROVIDERS: Emergency Provider Emergency Medicine
DX: J06.9 Acute upper respiratory infection, unspecified (principal); N30.01 Acute cystitis with hematuria; R07.89 Other chest pain; M54.32 Sciatica, left side; M54.31 Sciatica, right side; Z11.52 Encounter for screening for COVID-19; Z79.899 Other long term (current) drug therapy
CPT/HCPCS: 71045; 80048; 80076; 80307; 81001; 83735; 84484; 85025; 87635; 93005; 99283; 99284

== ENCOUNTER → 2023-09-25 14:55 | Outpatient (BNV) | payer OTHER, MEDICARE, SELFPAY | PROVIDERS: Emergency Provider Emergency Medicine; Visit Provider Internal Medicine | DX: R00.1 Bradycardia, unspecified (principal); R94.31 Abnormal electrocardiogram [ECG] [EKG] | CPT/HCPCS: 93010 ==

== ENCOUNTER 2024-06-06 14:44 | Outpatient (AMB) | payer MEDICARE, OTHER, SELFPAY ==
--- NOTE | 2024-06-06 14:47 | MHC.OFFVIS ---
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 at times on the left. Denies any recent trauma, injury, falls. Pain is constant and at times on and off and is worse in the mornings which she rates 6/10 and least severe during the daytime rated 4/10. Denies spine surgery or injections but reports shoulder cortisone injection in October with good results. Cervical spine imaging consistent this moderate degenerative and spondylotic changes, most significant at C5-C6 level with moderate canal narrowing and severe bilateral foraminal narrowing. Denies any significant residual weakness since stroke in 2016 but continues to have balance issues and uses walker with seat with ambulation. Patient reports extensive rehab status post stroke and previously completed physical and occupational therapy, chiropractic adjustments, massage therapy, acupuncture, yoga, and TENS unit for chronic pain with partial and temporary relief. She states Vicodin and oxycodone has been helpful in the past. Denies any fever or chills, abdominal or groin pain, dizziness, bladder or bowel dysfunction, or saddle anesthesia. Location: Neck, right arm/hand, left hip Duration: Chronic pain, worsening for past 2-3 years Characteristics of symptom or complaint: Burning, numbness, tingling, aching, throbbing, tiring, exhausting Aggravating or associated factors: Movements, cold weather changes, range of motions, lifting, looking down Relieving factors: Gabapentin, oxycodone, hydrocodone, Treatment: PT, injection for R shoulder, yoga, swimming, triking, gym, walker/seat [facility] Medical History (Updated 06/06/24 @ 15:20 by KAT Cheung) Right shoulder pain History of trauma Other chronic pain Urinary incontinence Pulmonary embolism and infarction Myocardial infarction Depressive disorder GERD (gastroesophageal reflux disease) Stroke Asthma, cold induced Hypertension Anxiety Surgical History (Updated 06/06/24 @ 15:57 by KAT Cheung) History of repair of ACL Hx of heart artery stent (~07/2017) History of craniotomy (~08/2017) Social History Alcohol intake: never Substance Use Type: Marijuana Review of Systems Const All systems reviewed & are unremarkable except as noted in HPI and below Physical Exam Vital Signs: Last Vital Signs Pulse 63 06/06/24 14:49 BP 158/77 H 06/06/24 14:49 Pulse Ox 97 06/06/24 14:49 Oxygen Delivery Method Room Air 06/06/24 14:49 BMI result Body Mass Index 32.4 General: Appears afebrile. Alert and oriented. Mood and affect appropriate. Follows and participates in conversation appropriately. Respiratory effort is unlabored. No cough. Able to transition from sit to stand unassisted. Uses walker/seat with ambulation. Ambulates with bilaterally normal heel strike and toe off. Neck Other: Patient with decreased cervical ROM in all planes, especially with left lateral rotation. Reports increased pain with cervical extension and flexion, worse with flexion and bending. Spurling compression test equivocal. Pain is unchanged by Spurling maneuver with retraction. Elvey's tension test positive bilaterally, with radiation of pain from neck to wrist and fingers, left>right. Lhermitte's test was negative. DTR diminished bilaterally. Patient demonstrated 5/5 right and 4/5 left motor strength of bilateral upper extremities. 2 + radial pulses. Significant tightness throughout right upper trapezius as well as TTP throughout bilateral upper trapezius muscles. No paravertebral tenderness over facet joints bilaterally. Neck: Yes normal visual inspection, Yes no lymphadenopathy, No anterior neck swelling, No torticollis, Yes no JVD and Yes prominent dorsocervical fat pad General: Yes no CVA tenderness Back/Spine/Pelvis Back: no CVA tenderness Cervical Spine: loss of normal cervical lordosis, cervical muscular tenderness, pain with cervical ROM, Cervical spine scars present (posterior midline occipital/upper neck), cervical spasm and No Cervical spine tenderness Thoracic/Lumbar Spine: thoracic and lumbar spine normal to inspection, pain with thoraco-lumbar ROM, paraspinal muscle tenderness, No thoracic spinal tenderness and No lumbar spinal tenderness Results Reviewed Results Reviewed: Assessment & Plan Assessment & Plan (1) Cervical spondylosis: Code(s): M47.812 - Spondylosis without myelopathy or radiculopathy, cervical region Category: Medical (2) Spinal stenosis of cervical region with radiculopathy: Code(s): M48.02 - Spinal stenosis, cervical region; M54.12 - Radiculopathy, cervical region Category: Medical (3) Degenerative cervical disc: Code(s): M50.30 - Other cervical disc degeneration, unspecified cervical region Category: Medical (4) Chronic pain syndrome: Code(s): G89.4 - Chronic pain syndrome Category: Medical Plan Schedule C5-C6 Interlaminar MAU with local and fluoroscopy. Expectations, risks and benefits were reviewed. Patient is aware she will be contacted to schedule this procedure. We also discussed diagnostic cervical medial branch blocks for axial neck pain for potential Sprint PNS trial or RFA procedures. Informational pamphlets were provided to patient. All questions were answered and the patient is in agreement of plan. Follow-up after injections and sooner as needed. Coding Level of Care Code New Pt Level 4 (79477) Complex EM visit Add On G2211 Diagnoses Cervical spondylosis M47.812 Spinal stenosis of cervical region with radiculopathy M48.02; M54.12 Degenerative cervical disc M50.30 Chronic pain syndrome G89.4
[2024-06-06 14:49] VITALS: BP 158/77; PULSE 63; O2SAT 97; BMI 32.4
== END 2024-06-06 15:18 | disposition home or self-care (01) ==
PROVIDERS: PCP Family Medicine; Referring Provider Family Medicine; Visit Provider Nurse Practitioner Family
DX: M47.812 Spondylosis without myelopathy or radiculopathy, cervical region (principal); M48.02 Spinal stenosis, cervical region; M54.12 Radiculopathy, cervical region; M50.30 Other cervical disc degeneration, unspecified cervical region; G89.4 Chronic pain syndrome
CPT/HCPCS: 99204; G2211

== ENCOUNTER → 2024-06-06 14:44 | Outpatient (BNVA) | payer MEDICARE, OTHER, SELFPAY | PROVIDERS: PCP Family Medicine; Referring Provider Family Medicine; Visit Provider Nurse Practitioner Family | DX: M47.22 Other spondylosis with radiculopathy, cervical region (principal); M48.02 Spinal stenosis, cervical region; M50.30 Other cervical disc degeneration, unspecified cervical region; G89.4 Chronic pain syndrome; Z86.73 Personal history of transient ischemic attack (TIA), and cerebral infarction without residual deficits | CPT/HCPCS: 99202 ==

== ENCOUNTER 2024-06-27 06:12 | Outpatient (REF) | payer MEDICARE, OTHER, SELFPAY | END 2024-06-27 06:13 | disposition home or self-care (01) | LOC: CF 06:12 | PROVIDERS: Visit Provider Internal Medicine | DX: M48.02 Spinal stenosis, cervical region (principal); M54.12 Radiculopathy, cervical region | CPT/HCPCS: 62321; J1100; J2003; Q9967 ==

== ENCOUNTER 2024-06-27 09:36 | Outpatient (AMB) | payer MEDICARE, OTHER, SELFPAY ==
--- NOTE | 2024-06-27 09:40 | MHC.OFFVIS ---
Vital Signs 06/27/24 09:45 06/27/24 10:29 BP 147/84 H 175/93 H Blood Pressure Location Lt brachial Rt brachial Position Sitting Sitting Pulse 65 58 Pulse Source Pulse Oximeter Pulse Oximeter Pulse Oximetry (%) 95 94 Oxygen Delivery Method Room Air Room Air Intake Visit Reasons: C5-C6 interlaminer MAU Allergies lisinopril [LISINOPRIL] Allergy (Severe, Verified 06/06/24 14:52) ANGIOEDEMA HPI HPI C5-C6 interlaminer MAU: Details: Patient presents for scheduled procedure. Denies any recent cough, cold, infection, fever or other significant changes in medical history since last office visit. [facility] Medical History (Updated 06/27/24 @ 12:40 by Jim Husain MD) Right shoulder pain History of trauma Other chronic pain Urinary incontinence Pulmonary embolism and infarction Myocardial infarction Depressive disorder GERD (gastroesophageal reflux disease) Stroke Asthma, cold induced Hypertension Anxiety Surgical History (Updated 06/06/24 @ 15:57 by KAT Cheung) History of repair of ACL Hx of heart artery stent (~07/2017) History of craniotomy (~08/2017) Social History Alcohol intake: never Substance Use Type: Marijuana Physical Exam Vital Signs: Last Vital Signs Pulse 58 06/27/24 10:29 BP 175/93 H 06/27/24 10:29 Pulse Ox 94 06/27/24 10:29 Oxygen Delivery Method Room Air 06/27/24 10:29 Office Procedures AMB Joint Injection/Aspiration Joint Injection/Aspiration Details: Interlaminar epidural steroid injection, C6/7, Left parasaggital After obtaining written consent, pre-procedure blood pressure and heart rate were stable and recorded in the nursing record. The patient was placed in the prone position. The cervical area was widely prepped with chloraprep and draped in sterile fashion. Fluoroscopic guidance was used to identify the desired interlaminar space and for needle placement. Subcutaneous 0.5% lidocaine was used to anesthetize the skin overlying the target. A 20-gauge Ma needle was advanced to the epidural space using loss of resistance to contrast technique under fluoroscopic AP and contralateral oblique views. There was no evidence of heme or CSF and no paresthesias were elicited with needle placement. Confirmation of epidural needle placement was performed with 1cc of omnipaque 180. Next 3 ml 0.5% lidocaine mixed with Dexamethasone 10mg was administered epidurally with no pain elicited on injection. The needle tract tubing was then cleared with 1 ml of 0.5% lidocaine. The needle was removed, skin cleansed and a sterile bandage was applied. The patient tolerated the procedure well and no complications were encountered. Following the procedure the patient's vital signs were stable. The patient was discharged home in good condition with post-procedural instructions. Time Out: Immediately prior to the procedure, the following was verbally confirmed that there is a signed consent form and that the correct patient, planned procedure, site and side are consistent with documentation and that necessary equipment and/or blood products are available prior to the start of the case. Complications: none EBL: <2 cc Coding 06803 - Cervical Epidural/Interlaminar with fluoroscopy Procedure code (CPT) selection complete Assessment & Plan Assessment & Plan (1) Cervical radicular pain: Code(s): M54.12 - Radiculopathy, cervical region Category: Medical Plan Patient is status post C6/7 left parasagittal MAU. Patient tolerated procedure well and was discharged home in stable condition with discharge instructions. All questions were answered. We will follow-up via telephone or in clinic to assess response to therapy. A follow-up appointment was made during today's visit. Orders: Orders AMB Joint Injection/Aspiration Today M54.12 - Radiculopathy, cervical region Coding Level of Care Code Procedure Only Diagnoses Cervical radicular pain M54.12 CPT Codes Coding - Joint 10: 95593 - Cervical Epidural/Interlaminar with fluoroscopy ([id number])
[2024-06-27 09:45] VITALS: BP 147/84; PULSE 65; O2SAT 95
[2024-06-27 10:29] VITALS: BP 175/93; PULSE 58; O2SAT 94
== END 2024-06-27 10:33 | disposition home or self-care (01) ==
LOC: HO.PMCPRC 09:36
PROVIDERS: PCP Family Medicine; Visit Provider Internal Medicine
DX: M54.12 Radiculopathy, cervical region (principal)
CPT/HCPCS: 62321

== ENCOUNTER 2024-07-25 11:03 | Outpatient (REF) | payer MEDICARE, OTHER, SELFPAY | END 2024-07-25 11:04 | disposition home or self-care (01) | LOC: HO.XRAY 11:03 | PROVIDERS: PCP Family Medicine; Visit Provider Nurse Practitioner Family | DX: M54.12 Radiculopathy, cervical region (principal); M51.369 Other intervertebral disc degeneration, lumbar region without mention of lumbar back pain or lower extremity pain; M47.816 Spondylosis without myelopathy or radiculopathy, lumbar region; M47.812 Spondylosis without myelopathy or radiculopathy, cervical region; M48.02 Spinal stenosis, cervical region; G89.4 Chronic pain syndrome | CPT/HCPCS: 72114; 99212 ==

== ENCOUNTER 2024-07-25 11:03 | Outpatient (AMB) | payer MEDICARE, OTHER, SELFPAY ==
--- NOTE | 2024-07-25 11:06 | A.OFFVIS_ITS ---
Vital Signs 3 07/25/24 11:07 Height 5 ft Weight 160 lb BMI 31.2 BP 145/81 H Blood Pressure Location Lt brachial Position Sitting Respiration 18 Pulse 63 Pulse Source Pulse Oximeter Pulse Oximetry (%) 97 Oxygen Delivery Method Room Air Intake Visit Reasons: s/p C5-C6 interlaminar MAU Allergies lisinopril [LISINOPRIL] Allergy (Severe, Verified 07/25/24 11:10) ANGIOEDEMA HPI Comments Details: Patient presents today to assess response to C6-C7 left parasagittal MAU on 06/27/[address] Husain. Patient reports 0% pain relief since procedure no significant improvement in her daily activities and functioning or sleep. She reports ongoing radicular symptoms to both hands and fingers, worse on the left side. Her axial cervical spine pain is minimal and rated at 2/10. Patient also reports low back pain with radiation to her lower extremities without specific dermatome region. Despite daily chronic neck and back pain, she continues regular physical activity at home and daily yoga exercises. To control pain, patient reports she has to take her medications with Tequila for better benefit. Patient reports her pain is not well controlled and it requires medication. I have informed patient that I do not offer opioid prescribing at this time. Patient declined neurosurgical evaluation for cervical radiculopathy resistant to conservative treatments including recent cervical MAU injection. 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 Denies any recent cough, cold, infection, fever or other significant changes in medical history since last office visit. Past Procedures: 06/27/24: C6-C7 left parasagittal MAU- 0% pain relief PRIOR: Patient is a 58-year-old female with prior history of CVA s/p craniotomy (2018), anxiety and depression, arthritis, kidney stones, former smoker (quit 1998), MIs, PE, urinary incontinence, chronic pain syndrome, balance issues, presents today for initial evaluation of chronic neck pain with radiation into her right upper arm and down into her right forearm and fingers and thumb. at times on the left. Denies any recent trauma, injury, falls. Pain is constant and at times on and off and is worse in the mornings which she rates 6/10 and least severe during the daytime rated 4/10. Denies spine surgery or injections but reports shoulder cortisone injection in October with good results. Cervical spine imaging consistent this moderate degenerative and spondylotic changes, most significant at C5-C6 level with moderate canal narrowing and severe bilateral foraminal narrowing. Denies any significant residual weakness since stroke in 2016 but continues to have balance issues and uses walker with seat with ambulation. Patient reports extensive rehab status post stroke and previously completed physical and occupational therapy, chiropractic adjustments, massage therapy, acupuncture, yoga, and TENS unit for chronic pain with partial and temporary relief. She states Vicodin and oxycodone has been helpful in the past. Denies any fever or chills, abdominal or groin pain, dizziness, bladder or bowel dysfunction, or saddle anesthesia. Location: Neck, right arm/hand, left hip Duration: Chronic pain, worsening for past 2-3 years Characteristics of symptom or complaint: Burning, numbness, tingling, aching, throbbing, tiring, exhausting Aggravating or associated factors: Movements, cold weather changes, range of motions, lifting, looking down Relieving factors: Gabapentin, oxycodone, hydrocodone, Treatment: PT, injection for R shoulder, yoga, swimming, triking, gym, walker/seat [facility] Medical History Right shoulder pain History of trauma Other chronic pain Urinary incontinence Pulmonary embolism and infarction Myocardial infarction Depressive disorder GERD (gastroesophageal reflux disease) Stroke Asthma, cold induced Hypertension Anxiety Surgical History History of repair of ACL Hx of heart artery stent (~07/2017) History of craniotomy (~08/2017) Social History Alcohol intake: never Substance Use Type: Marijuana Review of Systems Const All systems reviewed & are unremarkable except as noted in HPI and below Physical Exam General: Appears afebrile. Alert and oriented. Mood and affect appropriate. Follows and participates in conversation appropriately. Respiratory effort is unlabored. No cough. Able to transition from sit to stand unassisted. Uses walker/seat with ambulation. Ambulates with bilaterally normal heel strike and toe off. Neck Other: Patient with decreased cervical ROM in all planes, especially with left lateral rotation. Reports increased pain with cervical extension and flexion, worse with flexion and bending. Spurling compression test equivocal. Pain is unchanged by Spurling maneuver with retraction. Elvey's tension test positive bilaterally, with radiation of pain from neck to wrist and fingers, left>right. Lhermitte's test was negative. DTR diminished bilaterally. Patient demonstrated 5/5 right and 4/5 left motor strength of bilateral upper extremities. 2 + radial pulses. Significant tightness throughout right upper trapezius as well as TTP throughout bilateral upper trapezius muscles. No paravertebral tenderness over facet joints bilaterally. Neck: Yes normal visual inspection, Yes no lymphadenopathy, No anterior neck swelling, No torticollis, Yes no JVD and Yes prominent dorsocervical fat pad General: Yes no CVA tenderness Back/Spine/Pelvis Back: no CVA tenderness Cervical Spine: loss of normal cervical lordosis, cervical muscular tenderness, pain with cervical ROM, Cervical spine scars present (posterior midline occipital/upper neck), cervical spasm and No Cervical spine tenderness Thoracic/Lumbar Spine: thoracic and lumbar spine normal to inspection, No Thoracic/lumbar spine scar(s), Lasegue's sign negative, straight leg raise negative bilaterally, pain with thoraco-lumbar ROM, paraspinal muscle tenderness, No thoracic spinal tenderness and No lumbar spinal tenderness Sacroiliac joints: bilaterally nontender Results Reviewed Results Reviewed: Assessment & Plan Assessment & Plan (1) Cervical radicular pain: Code(s): M54.12 - Radiculopathy, cervical region Category: Medical (2) Lumbar degenerative disc disease: Code(s): M51.369 - Other intervertebral disc degeneration, lumbar region without mention of lumbar back pain or lower extremity pain Category: Medical (3) Lumbar spondylosis: Code(s): M47.816 - Spondylosis without myelopathy or radiculopathy, lumbar region Category: Medical (4) Cervical spondylosis: Code(s): M47.812 - Spondylosis without myelopathy or radiculopathy, cervical region Category: Medical (5) Spinal stenosis of cervical region with radiculopathy: Code(s): M48.02 - Spinal stenosis, cervical region; M54.12 - Radiculopathy, cervical region Category: Medical (6) Chronic pain syndrome: Code(s): G89.4 - Chronic pain syndrome Category: Medical Plan Patient is status post C6/7 left parasagittal MAU a month ago without any pain relief. She declined Neurosurgical evaluation to further evaluate cervical radiculopathy resistant to conservative treatments. Patient also reports chronic low back pain, predominantly axial low back pain with bilateral radiculopathy. We will obtain lumbar spine x-ray to assess degree of degenerative changes, any subluxation, listhesis, compression fractures or pars defects. Briefly discussed interventional treatments such as diagnostic lumbar medial branch blocks. Patient is adamant that she needs opioid medication to manage her chronic neck and back pain. I have informed patient that I do not offer opioid prescribing at this time. 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 All questions and concerns have been answered to patient's satisfaction. Follow-up visit with Dr. Morgan for x-ray/medication discussion and sooner as needed. Orders: Orders 2 XR lumbar spine 6V w bending Today M47.816 - Spondylosis without myelopathy or radiculopathy, lumbar region, M51.369 - Other intervertebral disc degeneration, lumbar region without mention of lumbar back pain or lower extremity pain Coding Level of Care Code Est Pt Level 4 (68141) Complex EM visit Add On G2211 Diagnoses Cervical radicular pain M54.12 Lumbar degenerative disc disease M51.369 Lumbar spondylosis M47.816 Cervical spondylosis M47.812 Spinal stenosis of cervical region with radiculopathy M48.02; M54.12 Chronic pain syndrome G89.4
[2024-07-25 11:07] VITALS: BP 145/81; PULSE 63; RESP 18; O2SAT 97; BMI 31.2
== END 2024-07-25 11:33 | disposition home or self-care (01) ==
PROVIDERS: PCP Family Medicine; Visit Provider Nurse Practitioner Family
DX: M54.12 Radiculopathy, cervical region (principal); M51.369 Other intervertebral disc degeneration, lumbar region without mention of lumbar back pain or lower extremity pain; M47.816 Spondylosis without myelopathy or radiculopathy, lumbar region; M47.812 Spondylosis without myelopathy or radiculopathy, cervical region; M48.02 Spinal stenosis, cervical region; G89.4 Chronic pain syndrome
CPT/HCPCS: 99214; G2211

== ENCOUNTER 2024-08-07 14:23 | Outpatient (AMB) | payer MEDICARE, OTHER, SELFPAY ==
--- NOTE | 2024-08-07 14:31 | A.OFFVIS_ITS ---
Vital Signs 08/07/24 14:34 Height 5 ft Weight 165 lb BMI 32.2 BP 158/72 H Blood Pressure Location Lt brachial Position Sitting Respiration 15 Pulse 73 Pulse Source Pulse Oximeter Pulse Oximetry (%) 94 Oxygen Delivery Method Room Air Intake Visit Reasons: Medication Review/Discuss X-Ray Results Allergies lisinopril [LISINOPRIL] Allergy (Severe, Verified 08/07/24 14:35) ANGIOEDEMA Medication List - Last Reconciled 08/07/24 by Mary Grace Huang LPN albuterol sulfate 90 mcg/actuation 2 puffs inhalation Q4-6H PRN aspirin 81 mg PO DAILY famotidine 10 mg PO BEDTIME fluoxetine 40 mg PO DAILY gabapentin mg PO lorazepam 0.5 mg PO Q8H PRN losartan 50 mg PO QAM methylphenidate HCl 5 mg PO DAILY rosuvastatin 10 mg PO DAILY trazodone 50 mg PO BEDTIME HPI Comments Details: Zelda is 58 years old female who presents today with my office to discuss initiation of chronic opioid therapy. Originally she came to see our nurse practitioner Maria De Jesus and on that appointment she admitted that she would like to take her opioid medications with Tequila for ?better benefits ?. This demonstrates if not overt addiction then certainly very strong potential for this. I do not believe the patient will be ever admitted in this office for the chronic oral opioid therapy. She received injections from Dr. Husain to treat her cervical radiculopathy with C6-C7 left parasagittal epidural steroid injection on 06/27/2024 she reported no pain improvement on this injection. She was the patient of Dr. Calix from [facility] and she received also injections into her left shoulder which were minimally effective to control her pain. The nature of this injections is not very clear to me whether they were image guided or blind injections we will request medical records from [facility] office. I openly told the patient today that we will not be able to prescribe opioids in his office however we can offer her [place] [employer] spinal cord stimulator to help her pain in the lower back as well as pain in the neck with radiation into the extremities. Brochures were given about [employer] [place] [employer]. If patient decides to go for spinal cord stimulator trial she needs to go for psychological evaluation. She would give us a call and we will place her on the list with [facility] point psychology. Past Procedures: 06/27/24: C6-C7 left parasagittal MAU- 0% pain relief PRIOR: Patient is a 58-year-old female with prior history of CVA s/p craniotomy (2018), anxiety and depression, arthritis, kidney stones, former smoker (quit 1998), MIs, PE, urinary incontinence, chronic pain syndrome, balance issues, presents today for initial evaluation of chronic neck pain with radiation into her right upper arm and down into her right forearm and fingers and thumb. at times on the left. Denies any recent trauma, injury, falls. Pain is constant and at times on and off and is worse in the mornings which she rates 6/10 and least severe during the daytime rated 4/10. Denies spine surgery or injections but reports shoulder cortisone injection in October with good results. Cervical spine imaging consistent this moderate degenerative and spondylotic changes, most significant at C5-C6 level with moderate canal narrowing and severe bilateral foraminal narrowing. Denies any significant residual weakness since stroke in 2016 but continues to have balance issues and uses walker with seat with ambulation. Patient reports extensive rehab status post stroke and previously completed physical and occupational therapy, chiropractic adjustments, massage therapy, acupuncture, yoga, and TENS unit for chronic pain with partial and temporary relief. She states Vicodin and oxycodone has been helpful in the past. Denies any fever or chills, abdominal or groin pain, dizziness, bladder or bowel dysfunction, or saddle anesthesia. Location: Neck, right arm/hand, left hip Duration: Chronic pain, worsening for past 2-3 years Characteristics of symptom or complaint: Burning, numbness, tingling, aching, throbbing, tiring, exhausting Aggravating or associated factors: Movements, cold weather changes, range of motions, lifting, looking down Relieving factors: Gabapentin, oxycodone, hydrocodone, Treatment: PT, injection for R shoulder, yoga, swimming, triking, gym, walker/seat [facility] Medical History Right shoulder pain History of trauma Other chronic pain Urinary incontinence Pulmonary embolism and infarction Myocardial infarction Depressive disorder GERD (gastroesophageal reflux disease) Stroke Asthma, cold induced Hypertension Anxiety Surgical History History of repair of ACL Hx of heart artery stent (~07/2017) History of craniotomy (~08/2017) Social History Alcohol intake: never Substance Use Type: Marijuana Review of Systems Const All systems reviewed & are unremarkable except as noted in HPI and below Physical Exam Vital Signs: Last Vital Signs Pulse 73 08/07/24 14:34 Resp 15 08/07/24 14:34 BP 158/72 H 08/07/24 14:34 Pulse Ox 94 08/07/24 14:34 Oxygen Delivery Method Room Air 08/07/24 14:34 BMI result Body Mass Index 32.2 General: Appears afebrile. Alert and oriented. Mood and affect appropriate. Follows and participates in conversation appropriately. Respiratory effort is unlabored. No cough. Able to transition from sit to stand unassisted. Uses walker/seat with ambulation. Ambulates with bilaterally normal heel strike and toe off. Neck Other: Patient with decreased cervical ROM in all planes, especially with left lateral rotation. Reports increased pain with cervical extension and flexion, worse with flexion and bending. Spurling compression test equivocal. Pain is unchanged by Spurling maneuver with retraction. Elvey's tension test positive bilaterally, with radiation of pain from neck to wrist and fingers, left>right. Lhermitte's test was negative. DTR diminished bilaterally. Patient demonstrated 5/5 right and 4/5 left motor strength of bilateral upper extremities. 2 + radial pulses. Significant tightness throughout right upper trapezius as well as TTP throughout bilateral upper trapezius muscles. No paravertebral tenderness over facet joints bilaterally. Neck: Yes normal visual inspection, Yes no lymphadenopathy, No anterior neck swelling, No torticollis, Yes no JVD and Yes prominent dorsocervical fat pad General: Yes no CVA tenderness Back/Spine/Pelvis Back: no CVA tenderness Cervical Spine: loss of normal cervical lordosis, cervical muscular tenderness, pain with cervical ROM, Cervical spine scars present (posterior midline occipital/upper neck), cervical spasm and No Cervical spine tenderness Thoracic/Lumbar Spine: thoracic and lumbar spine normal to inspection, No Thoracic/lumbar spine scar(s), Lasegue's sign negative, straight leg raise negative bilaterally, pain with thoraco-lumbar ROM, paraspinal muscle tenderness, No thoracic spinal tenderness and No lumbar spinal tenderness Sacroiliac joints: bilaterally nontender Assessment & Plan Assessment & Plan (1) Cervical radicular pain: Code(s): M54.12 - Radiculopathy, cervical region Category: Medical (2) Lumbar degenerative disc disease: Code(s): M51.369 - Other intervertebral disc degeneration, lumbar region without mention of lumbar back pain or lower extremity pain Category: Medical (3) Lumbar spondylosis: Code(s): M47.816 - Spondylosis without myelopathy or radiculopathy, lumbar region Category: Medical (4) Cervical spondylosis: Code(s): M47.812 - Spondylosis without myelopathy or radiculopathy, cervical region Category: Medical (5) Spinal stenosis of cervical region with radiculopathy: Code(s): M48.02 - Spinal stenosis, cervical region; M54.12 - Radiculopathy, cervical region Category: Medical (6) Chronic pain syndrome: Code(s): G89.4 - Chronic pain syndrome Category: Medical Plan Patient is status post C6/7 left parasagittal MAU a month ago without any pain relief. She declined Neurosurgical evaluation to further evaluate cervical radiculopathy resistant to conservative treatments. Patient also reports chronic low back pain, predominantly axial low back pain with bilateral radiculopathy. Lumbar spine x-rays not read yet, however I offered the patient treatment of cervicalgia with radiation into the upper extremities as well as treatment of lower back pain with radiculopathic pain radiation with [employer] [place] [employer] spinal cord stimulator. The patient reported that in the past she was taken her opioid medications with the tequila to ?maximize the effect ?. I believe this is indication of propensity for addiction, I will not be able to prescribe opioids for this patient in this office any time in the future. Brochure of [employer] [place] [employer] spinal cord stimulator was given to the patient if she decides to go for this procedure she needs to go for psychological evaluation 1st. Patient is going for vacation in [place], agreed that she will visit this office after she will returned from the vacation. Patient Instructions: I here by testify that I spent 35 minutes in conversation with this patient as well as planning her care and organizing this note. Coding Level of Care Code Est Pt Level 4 (68274) Diagnoses Cervical radicular pain M54.12 Lumbar degenerative disc disease M51.369 Lumbar spondylosis M47.816 Cervical spondylosis M47.812 Spinal stenosis of cervical region with radiculopathy M48.02; M54.12 Chronic pain syndrome G89.4
[2024-08-07 14:34] VITALS: BP 158/72; PULSE 73; RESP 15; O2SAT 94; BMI 32.2
== END 2024-08-07 15:08 | disposition home or self-care (01) ==
PROVIDERS: PCP Family Medicine; Visit Provider Anesthesiology
DX: M54.12 Radiculopathy, cervical region (principal); M51.369 Other intervertebral disc degeneration, lumbar region without mention of lumbar back pain or lower extremity pain; M47.816 Spondylosis without myelopathy or radiculopathy, lumbar region; M47.812 Spondylosis without myelopathy or radiculopathy, cervical region; M48.02 Spinal stenosis, cervical region; G89.4 Chronic pain syndrome
CPT/HCPCS: 99214

== ENCOUNTER → 2024-08-07 14:23 | Outpatient (BNVA) | payer MEDICARE, OTHER, SELFPAY | PROVIDERS: PCP Family Medicine; Visit Provider Anesthesiology | DX: M54.12 Radiculopathy, cervical region (principal); M51.369 Other intervertebral disc degeneration, lumbar region without mention of lumbar back pain or lower extremity pain; M47.816 Spondylosis without myelopathy or radiculopathy, lumbar region; M47.812 Spondylosis without myelopathy or radiculopathy, cervical region; M48.02 Spinal stenosis, cervical region; G89.4 Chronic pain syndrome | CPT/HCPCS: 99212 ==

== ENCOUNTER 2024-09-06 01:25 | Emergency (ER) | payer MEDICARE, OTHER, SELFPAY ==
--- NOTE | 2024-09-06 | ECG_ITS ---
Test Reason : uti? Blood Pressure : */* mmHG Vent. Rate : 75 BPM Atrial Rate : 75 BPM P-R Int : 176 ms QRS Dur : 110 ms QT Int : 454 ms P-R-T Axes : 50 -14 -1 degrees QTcB Int : 506 ms Poor data quality Normal sinus rhythm Incomplete right bundle branch block Inferior infarct , age undetermined ST & T wave abnormality, consider anterior ischemia Abnormal ECG When compared with ECG of 25-Sep-2023 15:50, Vent. rate has increased by 25 bpm Inferior infarct is now Present Referred By: Generic ED Physician Electronically Signed By: DK AMIN MD
[2024-09-06 01:41] VITALS: BP 156/104; BP 196/96; PULSE 68; PULSE 75; RESP 22; TEMP 36.1; O2SAT 100; BMI 31.2
[2024-09-06 02:18] LABS: Basophils Absolute Auto 0.1 X10*3/uL (0.0-0.2); Basophils Percent Auto 0.2 % (0-2); Eosinophils Absolute Auto 0.1 X10*3/uL (0.0-0.4); Eosinophils Percent Auto 0.2 % (0-4); Hematocrit 42.2 % (37.0-47.0); Hemoglobin 14.3 g/dl (12.0-16.0); Imm Gran Pct Auto 0.8 % (0.0-0.4); Lymphocytes Absolute Auto 0.8 X10*3/uL (1.2-4.9); Lymphocytes Percent Auto 3.2 % (20-40); MANUAL DIFF FLAG SCAN; Mean Corpuscular HGB Conc 33.9 g/dl (31.0-35.0); Mean Corpuscular Hemoglobin 31.6 pg (27.0-33.0); Mean Corpuscular Volume 93.4 fL (80.0-98.0); Mean Platelet Volume 9.8 fL (9.4-12.3); Monocytes Absolute Auto 1.1 X10*3/uL (0.1-1.2); Monocytes Percent Auto 4.1 % (2-11); Neutrophils Absolute Auto 23.4 x10*3/uL (2.0-8.3); Neutrophils Percent Auto 91.5 % (45-73); Platelet Count 243 X10*3/uL (160-400); Red Blood Count 4.52 X10*6/uL (4.20-5.50); Red Cell Distribution Width 12.6 % (11.0-16.0); SCAN SMEAR FLAG 1; White Blood Count 25.6 X10*3/uL (4.8-10.8)
[2024-09-06 02:19] LABS: SLIDE REVIEW VERIFIED
[2024-09-06 02:35] LABS: Alanine Aminotransferase 16 U/L (0-31); Albumin Level 3.9 g/dL (3.5-5.0); Anion Gap 18 (12-20); Aspartate Amino Transferase 19 U/L (5-31); Bilirubin Total 0.4 mg/dL (0.0-1.0); Blood Urea Nitrogen 11 mg/dL (9-16); Calcium 8.6 mg/dL (8.4-10.2); Carbon Dioxide 17 mmol/L (22-29); Chloride 111 mmol/L (96-108); Creatinine Clr Calc Pharmacy 73.4; Estimated Glomerular Filt Rate > 60; Glucose Random 138 mg/dL (60-115); Lipase 30 U/L (8-78); Potassium 3.9 mmol/L (3.3-5.1); Sodium 142 mmol/L (135-145); Total Protein 7.1 g/dL (6.5-8.0)
[2024-09-06 02:38] LABS: Influenza A PCR NEGATIVE (Negative); Influenza B PCR NEGATIVE (Negative); Resp Syncy Virus RNA Qual PCR NEGATIVE (Negative); SARS COV2 PCR INHOUSE NEGATIVE (Negative)
[2024-09-06 02:47] LABS: Alkaline Phosphatase 83 U/L (39-117)
[2024-09-06] MEDS: ondansetron HCL 4 MG/2 ML VIAL IVPUSH (03:30)
--- NOTE | 2024-09-06 05:32 | PC.NURSE ---
Pt incontinent of stool and urine. Full bed change.
[2024-09-06 05:36] VITALS: BP 198/85; PULSE 79; RESP 20; O2SAT 95
--- NOTE | 2024-09-06 06:54 | ED.GENADULT ---
HPI - General Adult General Chief complaint: General Medical Stated complaint: n/v/d Time Seen by Provider: 09/06/24 06:54 History of Present Illness ED Provider: Ivy LAGUERRE narrative: The patient is a 58-year-old woman who became acutely ill yesterday evening at around 21:30 with and diarrhea. She had symptoms for several hours and seemed extremely weak and ultimately her partner, who had given her 2 sublingual ondansetron, called 911 and she was brought to the hospital. She has had a long wait here in the emergency room, waiting to be seen by a provider. During this time her nausea has subsided. No significant abdominal pain. She has some back pain but she thinks this is part of her chronic pain syndrome. No definite fever.. Related Data Home Medications ?Medication ?Instructions ?Recorded ?Confirmed aspirin 81 mg tablet,delayed 81 mg PO DAILY 06/06/24 08/07/24 release fluoxetine 20 mg capsule 40 mg PO DAILY 06/06/24 08/07/24 gabapentin 100 mg capsule mg PO 06/06/24 08/07/24 lorazepam 0.5 mg tablet 0.5 mg PO Q8H PRN anxiety 06/06/24 08/07/24 losartan 50 mg tablet 50 mg PO QAM 06/06/24 08/07/24 methylphenidate HCl 5 mg tablet 5 mg PO DAILY 06/06/24 08/07/24 rosuvastatin 10 mg tablet 10 mg PO DAILY 06/06/24 08/07/24 trazodone 50 mg tablet 50 mg PO BEDTIME 06/06/24 08/07/24 famotidine 10 mg tablet 10 mg PO BEDTIME 08/07/24 08/07/24 Previous Rx's ?Medication ?Instructions ?Recorded albuterol sulfate 90 mcg/actuation 2 puff inhalation Q4-6H PRN 09/25/23 aerosol inhaler shortness of breath or wheezing #6.7 grams ondansetron 4 mg disintegrating 4 mg PO Q6H PRN nausea and 09/06/24 tablet vomiting #10 tabs Allergies Allergy/AdvReac Type Severity Reaction Status Date / Time lisinopril [LISINOPRIL] Allergy Severe ANGIOEDEMA Verified 09/06/24 01:55 Review of Systems Review of Systems: Yes all other systems are reviewed and are negative [facility] Past Medical History Medical History Right shoulder pain History of trauma Other chronic pain Urinary incontinence Pulmonary embolism and infarction Myocardial infarction Depressive disorder GERD (gastroesophageal reflux disease) Stroke Asthma, cold induced Hypertension Anxiety Surgical History History of repair of ACL Hx of heart artery stent (~07/2017) History of craniotomy (~08/2017) Social History Social History Alcohol intake: never Substance Use Type: Marijuana Advance Directives: No Advance Directives Information Provided: Yes Do you have a plan to hurt others: No Plan Physical Exam ED Vital Signs: Vital Signs - 24 hr 09/06/24 01:41 09/06/24 05:36 09/06/24 11:25 Temperature 97 F 98.4 F Pulse Rate 75 79 108 H Respiratory Rate 22 H 20 16 Blood Pressure 196/96 H 198/85 H 163/91 H Pulse Oximetry 100 95 94 Oxygen Delivery Method Room Air Room Air Room Air 09/06/24 12:15 Temperature 98.4 F Pulse Rate 108 H Respiratory Rate 16 Blood Pressure 163/91 H Pulse Oximetry 94 Oxygen Delivery Method Room Air BMI result Body Mass Index 31.2 Const Other: The patient is a somewhat chronically ill-appearing 58-year-old who was awake and alert and looks somewhat unwell. HENMT Other: Face is symmetrical. No obvious mucous membrane dryness. Face and sinus: Yes normal facial exam Eyes General: appearance normal, both eyes and all related structures Neck Neck: Yes full ROM Resp Effort & Inspection: normal respiratory effort Auscultation: clear to auscultation bilaterally Cardio Rate: regular rate Rhythm: regular rhythm Heart sounds: S1 normal heart sound present and S2 normal heart sound present GI Other: abdomen is soft and nontender Skin Other: skin is dry and unremarkable Neuro Other: patient seemed a bit worn out but around herself with direct engagement. She looks tired and somewhat weak but not obviously acutely ill otherwise. Cranial nerves 2-12 were intact. She has appropriate movement of her arms and legs. Extrem Other: No peripheral edema Medications Administered Discontinued Medications Generic Name Dose Route Start Last Admin Trade Name Freq PRN Reason Stop Dose Admin Diphenhydramine HCl 12.5 mg 09/06/24 11:11 09/06/24 11:27 Diphenhydramine Hcl 50 Mg/Ml Vial IVPUSH 09/06/24 11:12 12.5 mg ONCE ONE Administration Sodium Chloride 1,000 mls @ 999 mls/hr 09/06/24 07:15 09/06/24 10:31 Ns IV 09/06/24 08:15 Infused .Q1H1M TOÑO Infusion Ketorolac Tromethamine 10 mg 09/06/24 11:11 09/06/24 11:28 Ketorolac Tromethamine 15 Mg/Ml Vial IVPUSH 09/06/24 11:12 10 mg ONCE ONE Administration Metoclopramide HCl 10 mg 09/06/24 11:11 09/06/24 11:28 Metoclopramide Hcl 10 Mg/2 Ml Vial IVPUSH 09/06/24 11:12 10 mg ONCE ONE Administration Ondansetron HCl 4 mg 09/06/24 03:27 09/06/24 03:30 Ondansetron Hcl 4 Mg/2 Ml Vial IVPUSH 09/06/24 03:28 4 mg ONCE ONE Administration Medical Decision Making Medical Decision Making [facility] Narrative: the patient is a 58-year-old woman who developed vomiting and diarrhea yesterday. She says he felt unwell all morning and finally came to the hospital. She does not have any significant abdominal pain. No definite fever. my overall impression was that the patient had some kind acute gastroenteritis type syndrome. She was treated symptomatically with IV fluids and anti nauseous. Ultimately she felt significantly better. She will be discharged. Lab Data 09/06/24 02:12 09/06/24 02:12 Labs: Lab Results 09/06/24 09/06/24 Range/Units 01:54 02:12 WBC 25.6 H (4.8-10.8) X10*3/uL RBC 4.52 (4.20-5.50) X10*6/uL Hgb 14.3 (12.0-16.0) g/dl Hct 42.2 (37.0-47.0) % MCV 93.4 (80.0-98.0) fL MCH 31.6 (27.0-33.0) pg MCHC 33.9 (31.0-35.0) g/dl RDW 12.6 (11.0-16.0) % Plt Count 243 (160-400) X10*3/uL MPV 9.8 (9.4-12.3) fL Immature Gran % (Auto) 0.8 H (0.0-0.4) % Neut % (Auto) 91.5 H (45-73) % Lymph % (Auto) 3.2 L (20-40) % Hartley % (Auto) 4.1 (2-11) % Eos % (Auto) 0.2 (0-4) % Baso % (Auto) 0.2 (0-2) % Lymph # (Auto) 0.8 L (1.2-4.9) X10*3/uL Hartley # (Auto) 1.1 (0.1-1.2) X10*3/uL Eos # (Auto) 0.1 (0.0-0.4) X10*3/uL Baso # (Auto) 0.1 (0.0-0.2) X10*3/uL Abs Immat Gran (auto) 0.20 H (0.00-0.03) X10*3/uL Absolute Neuts (auto) 23.4 H (2.0-8.3) x10*3/uL Absolute Nucleated RBC 0.000 (0.0-0.012) X10*3/uL Nucleated RBC % (auto) 0.0 (0.0-0.2) /100WBC Smear Tech's Comments VERIFIED Sodium 142 (135-145) mmol/L Potassium 3.9 (3.3-5.1) mmol/L Chloride 111 H (96-108) mmol/L Carbon Dioxide 17 L (22-29) mmol/L Anion Gap 18 (12-20) BUN 11 (9-16) mg/dL Creatinine 0.76 (0.5-1.4) mg/dL Estim Creat Clear Calc 73.4 Estimated GFR > 60 Random Glucose 138 H (60-115) mg/dL Calcium 8.6 (8.4-10.2) mg/dL Total Bilirubin 0.4 (0.0-1.0) mg/dL AST 19 (5-31) U/L ALT 16 (0-31) U/L Alkaline Phosphatase 83 (39-117) U/L C-Reactive Protein 0.38 (< or = 0.50) mg/dL Total Protein 7.1 (6.5-8.0) g/dL Albumin 3.9 (3.5-5.0) g/dL Lipase 30 (8-78) U/L Influenza Type A (PCR) NEGATIVE (Negative) Influenza Type B (PCR) NEGATIVE (Negative) RSV RNA Qual (PCR) NEGATIVE (Negative) SARS-CoV-2 RNA (RT-PCR) NEGATIVE (Negative) Discharge Plan Discharge Clinical Impression: Nausea, vomiting, and diarrhea, Headache Patient Disposition: Home, Self-Care Additional Instructions: I believe you are probably having some kind of viral stomach bug. Please rest and take it easy today. I have sent a prescription for ondansetron, the antinausea medication, to your pharmacy. Please try to take clear fluids. If you feel up to it you may try simple foods like toast or well cooked rice. Stay in touch with your regular doctor's office for additional advice as needed and follow up with them if you feel you need to get rechecked. If you feel significantly worse please return to the emergency department. Prescriptions: New ondansetron 4 mg tablet,disintegrating 4 mg PO Q6H PRN (Reason: nausea and vomiting) Qty: 10 0RF No Action albuterol sulfate 90 mcg/actuation HFA aerosol inhaler 2 puff inhalation Q4-6H PRN (Reason: shortness of breath or wheezing) Qty: 6.7 0RF gabapentin 100 mg capsule PO trazodone 50 mg tablet 50 mg PO BEDTIME fluoxetine 20 mg capsule 40 mg PO DAILY losartan 50 mg tablet 50 mg PO QAM rosuvastatin 10 mg tablet 10 mg PO DAILY methylphenidate HCl 5 mg tablet 5 mg PO DAILY lorazepam 0.5 mg tablet 0.5 mg PO Q8H PRN (Reason: anxiety) aspirin 81 mg tablet,delayed release (DR/EC) 81 mg PO DAILY famotidine 10 mg tablet 10 mg PO BEDTIME Referrals: Effie Huerta MD [Primary Care Provider] - (Nausea vomiting and diarrhea) Interventions: ED Discharge Assessment Last Done: 09/06/24 12:15 Discharge Date/Time: 09/06/24 12:16 Print Language: Thai
[2024-09-06 07:25] LABS: C Reactive Protein 0.38 mg/dL (< or = 0.50)
[2024-09-06] MEDS: 0.9 % Sodium Chloride 1,000 ML 999 ML IV (08:37)
[2024-09-06 11:25] VITALS: BP 163/91; PULSE 108; RESP 16; TEMP 36.9; O2SAT 94
[2024-09-06] MEDS: diphenhydrAMINE HCL 50 MG/ML VIAL 12.5 MG IVPUSH (11:27)
[2024-09-06] MEDS: Metoclopramide HCl 10 MG/2 ML VIAL IVPUSH (11:28)
[2024-09-06] MEDS: Ketorolac Tromethamine 15 MG/ML VIAL 10 MG IVPUSH (11:28)
[2024-09-06 12:15] VITALS: BP 163/91; PULSE 108; RESP 16; TEMP 36.9; O2SAT 94
== END 2024-09-06 12:16 | disposition home or self-care (01) ==
PROVIDERS: Emergency Provider Emergency Medicine; PCP Family Medicine
DX: R11.2 Nausea with vomiting, unspecified (principal); R19.7 Diarrhea, unspecified; R51.9 Headache, unspecified; Z03.818 Encounter for observation for suspected exposure to other biological agents ruled out; I10 Essential (primary) hypertension; J45.909 Unspecified asthma, uncomplicated
CPT/HCPCS: 0241U; 80053; 83690; 85025; 86140; 93005; 96361; 96374; 96375; 99284; 99285; J1200; J1885; J2405; J2765

== ENCOUNTER → 2024-09-06 01:42 | Outpatient (BNV) | payer MEDICARE, OTHER, SELFPAY | PROVIDERS: Emergency Provider Emergency Medicine; PCP Family Medicine; Visit Provider Internal Medicine Cardiovascular Disease | DX: R94.31 Abnormal electrocardiogram [ECG] [EKG] (principal) | CPT/HCPCS: 93010 ==

== ENCOUNTER 2024-09-19 10:31 | Outpatient (AMB) | payer MEDICARE, OTHER, SELFPAY ==
--- NOTE | 2024-09-19 10:46 | MHC.OFFVIS ---
Vital Signs 09/19/24 10:47 Height 5 ft Weight 167 lb BMI 32.6 BP 145/80 H Blood Pressure Location Rt brachial Position Sitting Pulse 75 Pulse Source Pulse Oximeter Intake Visit Reasons: 6 week Follow Up Intake Note: Pain today 510 Allergies lisinopril [LISINOPRIL] Allergy (Severe, Verified 09/19/24 10:47) ANGIOEDEMA HPI Comments Details: Zelda is 58 years old female who presents again in my office basically to discuss with me her dissatisfaction with the care she received in this very office. She reported to me that when she was speaking with [employer] about her habit of taking pain medication with tequila it was nurse practitioner's misperception of what she said. She stated that she never took her opioids with tequila. However when she was seen nurse practitioner she stated that she takes gabapentin with alcoholic beverages. She just does not realize how exposed in this conversation her high-risk for opioid addiction. I offered her today non opioid medications, I offered her neuromodulation. She adamantly refused. She stated that she will bring her care to [facility]. Prior: Originally she came to see our nurse practitioner Maria De Jesus and on that appointment she admitted that she would like to take her medications with Tequila for ?better benefits ?. This demonstrates if not overt addiction then certainly very strong potential for this. I do not believe the patient will be ever admitted in this office for the chronic oral opioid therapy. She received injections from Dr. Husain to treat her cervical radiculopathy with C6-C7 left parasagittal epidural steroid injection on 06/27/2024 she reported no pain improvement on this injection. She was the patient of Dr. Calix from [facility] and she received also injections into her left shoulder which were minimally effective to control her pain. The nature of this injections is not very clear to me whether they were image guided or blind injections we will request medical records from [facility] office. I openly told the patient today that we will not be able to prescribe opioids in his office however we can offer her [employer] spinal cord stimulator to help her pain in the lower back as well as pain in the neck with radiation into the extremities. Brochures were given about [employer]. If patient decides to go for spinal cord stimulator trial she needs to go for psychological evaluation. She would give us a call and we will place her on the list with [facility] psychology. Past Procedures: 06/27/24: C6-C7 left parasagittal MAU- 0% pain relief PRIOR: Patient is a 58-year-old female with prior history of CVA s/p craniotomy (2018), anxiety and depression, arthritis, kidney stones, former smoker (quit 1998), MIs, PE, urinary incontinence, chronic pain syndrome, balance issues, presents today for initial evaluation of chronic neck pain with radiation into her right upper arm and down into her right forearm and fingers and thumb. at times on the left. Denies any recent trauma, injury, falls. Pain is constant and at times on and off and is worse in the mornings which she rates 6/10 and least severe during the daytime rated 4/10. Denies spine surgery or injections but reports shoulder cortisone injection in October with good results. Cervical spine imaging consistent this moderate degenerative and spondylotic changes, most significant at C5-C6 level with moderate canal narrowing and severe bilateral foraminal narrowing. Denies any significant residual weakness since stroke in 2016 but continues to have balance issues and uses walker with seat with ambulation. Patient reports extensive rehab status post stroke and previously completed physical and occupational therapy, chiropractic adjustments, massage therapy, acupuncture, yoga, and TENS unit for chronic pain with partial and temporary relief. She states Vicodin and oxycodone has been helpful in the past. Denies any fever or chills, abdominal or groin pain, dizziness, bladder or bowel dysfunction, or saddle anesthesia. Location: Neck, right arm/hand, left hip Duration: Chronic pain, worsening for past 2-3 years Characteristics of symptom or complaint: Burning, numbness, tingling, aching, throbbing, tiring, exhausting Aggravating or associated factors: Movements, cold weather changes, range of motions, lifting, looking down Relieving factors: Gabapentin, oxycodone, hydrocodone, Treatment: PT, injection for R shoulder, yoga, swimming, triking, gym, walker/seat [facility] Medical History Right shoulder pain History of trauma Other chronic pain Urinary incontinence Pulmonary embolism and infarction Myocardial infarction Depressive disorder GERD (gastroesophageal reflux disease) Stroke Asthma, cold induced Hypertension Anxiety Surgical History History of repair of ACL Hx of heart artery stent (~07/2017) History of craniotomy (~08/2017) Social History Alcohol intake: never Substance Use Type: Marijuana Review of Systems Const All systems reviewed & are unremarkable except as noted in HPI and below Physical Exam Vital Signs: Last Vital Signs Pulse 75 09/19/24 10:47 BP 145/80 H 09/19/24 10:47 BMI result Body Mass Index 32.6 General: Appears afebrile. Alert and oriented. Mood and affect appropriate. Follows and participates in conversation appropriately. Respiratory effort is unlabored. No cough. Able to transition from sit to stand unassisted. Uses walker/seat with ambulation. Ambulates with bilaterally normal heel strike and toe off. Neck Other: Patient with decreased cervical ROM in all planes, especially with left lateral rotation. Reports increased pain with cervical extension and flexion, worse with flexion and bending. Spurling compression test equivocal. Pain is unchanged by Spurling maneuver with retraction. Elvey's tension test positive bilaterally, with radiation of pain from neck to wrist and fingers, left>right. Lhermitte's test was negative. DTR diminished bilaterally. Patient demonstrated 5/5 right and 4/5 left motor strength of bilateral upper extremities. 2 + radial pulses. Significant tightness throughout right upper trapezius as well as TTP throughout bilateral upper trapezius muscles. No paravertebral tenderness over facet joints bilaterally. Neck: Yes normal visual inspection, Yes no lymphadenopathy, No anterior neck swelling, No torticollis, Yes no JVD and Yes prominent dorsocervical fat pad General: Yes no CVA tenderness Back/Spine/Pelvis Back: no CVA tenderness Cervical Spine: loss of normal cervical lordosis, cervical muscular tenderness, pain with cervical ROM, Cervical spine scars present (posterior midline occipital/upper neck), cervical spasm and No Cervical spine tenderness Thoracic/Lumbar Spine: thoracic and lumbar spine normal to inspection, No Thoracic/lumbar spine scar(s), Lasegue's sign negative, straight leg raise negative bilaterally, pain with thoraco-lumbar ROM, paraspinal muscle tenderness, No thoracic spinal tenderness and No lumbar spinal tenderness Sacroiliac joints: bilaterally nontender Assessment & Plan Assessment & Plan (1) Cervical radicular pain: Code(s): M54.12 - Radiculopathy, cervical region Category: Medical (2) Lumbar degenerative disc disease: Code(s): M51.369 - Other intervertebral disc degeneration, lumbar region without mention of lumbar back pain or lower extremity pain Category: Medical (3) Lumbar spondylosis: Code(s): M47.816 - Spondylosis without myelopathy or radiculopathy, lumbar region Category: Medical (4) Cervical spondylosis: Code(s): M47.812 - Spondylosis without myelopathy or radiculopathy, cervical region Category: Medical (5) Spinal stenosis of cervical region with radiculopathy: Code(s): M48.02 - Spinal stenosis, cervical region; M54.12 - Radiculopathy, cervical region Category: Medical (6) Chronic pain syndrome: Code(s): G89.4 - Chronic pain syndrome Category: Medical Plan Patient is status post C6/7 left parasagittal MAU ago without any pain relief. She declined Neurosurgical evaluation to further evaluate cervical radiculopathy resistant to conservative treatments. Patient also reports chronic low back pain, predominantly axial low back pain with bilateral radiculopathy. Lumbar spine x-rays not read yet, however I offered the patient treatment of cervicalgia with radiation into the upper extremities as well as treatment of lower back pain with radiculopathic pain radiation with [employer] spinal cord stimulator. The patient reported that in the past she was taken her pain medications with the tequila to ?maximize the effect ?. I believe this is indication of propensity for addiction, I will not be able to prescribe opioids for this patient in this office any time in the future. Patient is extremely upset because of my refusal to prescribe her opioid medications in this office. She stated that this is misperception on the part of the nurse practitioner to what she was told. Nevertheless sensing the potential for addiction with a statement the patient made to the nurse practitioner I feel uncomfortable prescribing opioid medications to this patient. She is reluctant to go for neuromodulation treatment such as [employer] spinal cord stimulator which was offered to her in this office. She stated that she will bring her care to [facility]. Patient Instructions: I here by testify that I spent 35 minutes in conversation with this patient as well as evaluating my prior records evaluating prior records of injections and appointments as well as organizing this note. Coding Level of Care Code Est Pt Level 4 (55399) Diagnoses Cervical radicular pain M54.12 Lumbar degenerative disc disease M51.369 Lumbar spondylosis M47.816 Cervical spondylosis M47.812 Spinal stenosis of cervical region with radiculopathy M48.02; M54.12 Chronic pain syndrome G89.4
[2024-09-19 10:47] VITALS: BP 145/80; PULSE 75; BMI 32.6
== END 2024-09-19 11:09 | disposition home or self-care (01) ==
PROVIDERS: PCP Family Medicine; Visit Provider Anesthesiology
DX: M54.12 Radiculopathy, cervical region (principal); M51.369 Other intervertebral disc degeneration, lumbar region without mention of lumbar back pain or lower extremity pain; M47.816 Spondylosis without myelopathy or radiculopathy, lumbar region; M47.812 Spondylosis without myelopathy or radiculopathy, cervical region; M48.02 Spinal stenosis, cervical region; G89.4 Chronic pain syndrome
CPT/HCPCS: 99214

== ENCOUNTER → 2024-09-19 10:31 | Outpatient (BNVA) | payer MEDICARE, OTHER, SELFPAY | PROVIDERS: PCP Family Medicine; Visit Provider Anesthesiology | DX: M54.12 Radiculopathy, cervical region (principal); M51.369 Other intervertebral disc degeneration, lumbar region without mention of lumbar back pain or lower extremity pain; M47.816 Spondylosis without myelopathy or radiculopathy, lumbar region; M47.812 Spondylosis without myelopathy or radiculopathy, cervical region; M48.02 Spinal stenosis, cervical region; G89.4 Chronic pain syndrome | CPT/HCPCS: 99212 ==

== ENCOUNTER 2024-11-23 12:38 | Emergency (ER) | payer MEDICARE, OTHER, SELFPAY ==
--- NOTE | ~2024-11-23 | XR_ITS ---
CLINICAL HISTORY: low back pain 3 views lumbar spine Comparison: CR/SR - XR LUMBAR SPINE 6V W BENDING - 07/25/24 12:18 EST Findings: Normal alignment. No acute fractures or dislocation. Multilevel disc space narrowing and endplate osteophyte formation, as well as facet hypertrophy. IMPRESSION: No acute findings. This document has been electronically signed by: Nirmal Kitchen MD on 11/23/2024 14:27:37
[2024-11-23 12:53] VITALS: BP 163/120; PULSE 110; RESP 22; TEMP 36.8; O2SAT 94; BMI 31.2
--- NOTE | 2024-11-23 12:54 | ED.BACK ---
HPI - Back Pain/Injury General Chief Complaint: Back Pain/Injury Stated Complaint: R side back pain going into leg Time Seen by Provider: 11/23/24 13:40 Related Data Home Medications ?Medication ?Instructions ?Recorded ?Confirmed aspirin 81 mg tablet,delayed 81 mg PO DAILY 06/06/24 08/07/24 release fluoxetine 20 mg capsule 40 mg PO DAILY 06/06/24 08/07/24 gabapentin 100 mg capsule mg PO 06/06/24 08/07/24 lorazepam 0.5 mg tablet 0.5 mg PO Q8H PRN anxiety 06/06/24 08/07/24 losartan 50 mg tablet 50 mg PO QAM 06/06/24 08/07/24 methylphenidate HCl 5 mg tablet 5 mg PO DAILY 06/06/24 08/07/24 rosuvastatin 10 mg tablet 10 mg PO DAILY 06/06/24 08/07/24 trazodone 50 mg tablet 50 mg PO BEDTIME 06/06/24 08/07/24 famotidine 10 mg tablet 10 mg PO BEDTIME 08/07/24 08/07/24 duloxetine 20 mg capsule,delayed mg PO DAILY 09/19/24 release metoprolol tartrate 25 mg tablet mg PO DAILY 09/19/24 Previous Rx's ?Medication ?Instructions ?Recorded albuterol sulfate 90 mcg/actuation 2 puff inhalation Q4-6H PRN 09/25/23 aerosol inhaler shortness of breath or wheezing #6.7 grams ondansetron 4 mg disintegrating 4 mg PO Q6H PRN nausea and 09/06/24 tablet vomiting #10 tabs cyclobenzaprine 10 mg tablet 10 mg PO TID PRN pain #14 tabs 11/23/24 ibuprofen 400 mg tablet 400 mg PO Q6H PRN pain #20 tabs 11/23/24 oxycodone 5 mg tablet 5 mg PO Q8H PRN pain #7 tabs 11/23/24 Allergies Allergy/AdvReac Type Severity Reaction Status Date / Time lisinopril [LISINOPRIL] Allergy Severe ANGIOEDEMA Verified 11/23/24 12:57 [facility] Past Medical History Medical History Right shoulder pain History of trauma Other chronic pain Urinary incontinence Pulmonary embolism and infarction Myocardial infarction Depressive disorder GERD (gastroesophageal reflux disease) Stroke Asthma, cold induced Hypertension Anxiety Surgical History History of repair of ACL Hx of heart artery stent (~07/2017) History of craniotomy (~08/2017) Social History Social History Alcohol intake: never Substance Use Type: Marijuana Advance Directives: No Advance Directives Information Provided: No Do you have a plan to hurt others: No Plan Physical Exam Vital Signs: Vital Signs: Last Vital Signs Temp 98.3 F 11/23/24 12:53 Pulse 98 11/23/24 14:55 Resp 20 11/23/24 14:55 BP 167/97 H 11/23/24 14:55 Pulse Ox 96 11/23/24 14:55 O2 Del Method Room Air 11/23/24 14:55 BMI result Body Mass Index 31.2 Course Course Course Narrative: This is a Rapid Medical Exam performed in triage by Ira Barswell PA-C. Full HPI, ROS and PE to be performed by primary ED provider. 59 yo F w/PMHx DDD, HTN, presenting to the ED c/o low back pain radiating to RLE x5 days. denies injury/fall. Admits to similar sx in the past. reports painful ambulation. Admits to mild STREETER. Denies CP, incontinence/retention PE: HTNsive - admits just took her home meds prior to arrival, anxious, no midline spinous ttp, R sided paraspinal/MSK/buttock ttp. No rash/erythema Low suspicion for severe sepsis. VS abnormalities likely from pain Plan: EKG, XR, pain control Medications Administered Discontinued Medications Generic Name Dose Route Start Last Admin Trade Name Freq PRN Reason Stop Dose Admin Hydromorphone HCl 0.5 mg 11/23/24 14:19 11/23/24 14:42 Hydromorphone Hcl 0.5 Mg/0.5 Ml Syringe IVPUSH 11/23/24 14:20 0.5 mg ONCE ONE Administration Protocol Lorazepam 0.5 mg 11/23/24 14:19 11/23/24 14:41 Lorazepam 2 Mg/Ml Vial IVPUSH 11/23/24 14:20 0.5 mg ONCE ONE Administration Losartan Potassium 50 mg 11/23/24 14:23 11/23/24 14:56 Losartan Potassium 50 Mg Tablet PO 11/23/24 14:24 Not Given ONCE ONE Protocol Metoprolol Tartrate 25 mg 11/23/24 14:23 11/23/24 14:57 Metoprolol Tartrate 25 Mg Tablet PO 11/23/24 14:24 Not Given ONCE ONE Protocol Medical Decision Making Lab Data 11/23/24 14:57 11/23/24 14:57 Labs: Lab Results 11/23/24 Range/Units 14:57 WBC 14.7 H (4.8-10.8) X10*3/uL RBC 4.68 (4.20-5.50) X10*6/uL Hgb 15.0 (12.0-16.0) g/dl Hct 41.6 (37.0-47.0) % MCV 88.9 (80.0-98.0) fL MCH 32.1 (27.0-33.0) pg MCHC 36.1 H (31.0-35.0) g/dl RDW 12.2 (11.0-16.0) % Plt Count 299 (160-400) X10*3/uL MPV 9.8 (9.4-12.3) fL Immature Gran % (Auto) 0.3 (0.0-0.4) % Neut % (Auto) 69.9 (45-73) % Lymph % (Auto) 21.8 (20-40) % [place] % (Auto) 6.2 (2-11) % Eos % (Auto) 1.3 (0-4) % Baso % (Auto) 0.5 (0-2) % Lymph # (Auto) 3.2 (1.2-4.9) X10*3/uL [place] # (Auto) 0.9 (0.1-1.2) X10*3/uL Eos # (Auto) 0.2 (0.0-0.4) X10*3/uL Baso # (Auto) 0.1 (0.0-0.2) X10*3/uL Abs Immat Gran (auto) 0.04 H (0.00-0.03) X10*3/uL Absolute Neuts (auto) 10.3 H (2.0-8.3) x10*3/uL Absolute Nucleated RBC 0.000 (0.0-0.012) X10*3/uL Nucleated RBC % (auto) 0.0 (0.0-0.2) /100WBC Sodium 141 (135-145) mmol/L Potassium 4.9 D (3.3-5.1) mmol/L Chloride 111 H (96-108) mmol/L Carbon Dioxide 20 L (22-29) mmol/L Anion Gap 15 (12-20) BUN 16 (9-16) mg/dL Creatinine 0.66 (0.5-1.4) mg/dL Estim Creat Clear Calc 87.0 Estimated GFR > 60 Random Glucose 105 (60-115) mg/dL Calcium 8.8 (8.4-10.2) mg/dL Discharge Plan Discharge Clinical Impression: Sciatica Patient Disposition: Home, Self-Care Instructions: Sciatica (ED) Prescriptions: New cyclobenzaprine 10 mg tablet 10 mg PO TID PRN (Reason: pain) Qty: 14 0RF ibuprofen 400 mg tablet 400 mg PO Q6H PRN (Reason: pain) Qty: 20 0RF oxycodone 5 mg tablet 5 mg PO Q8H PRN (Reason: pain) Qty: 7 0RF Rx Instructions: Partial Fill upon patient request. No Action ondansetron 4 mg tablet,disintegrating 4 mg PO Q6H PRN (Reason: nausea and vomiting) Qty: 10 0RF albuterol sulfate 90 mcg/actuation HFA aerosol inhaler 2 puff inhalation Q4-6H PRN (Reason: shortness of breath or wheezing) Qty: 6.7 0RF gabapentin 100 mg capsule PO trazodone 50 mg tablet 50 mg PO BEDTIME fluoxetine 20 mg capsule 40 mg PO DAILY losartan 50 mg tablet 50 mg PO QAM rosuvastatin 10 mg tablet 10 mg PO DAILY methylphenidate HCl 5 mg tablet 5 mg PO DAILY lorazepam 0.5 mg tablet 0.5 mg PO Q8H PRN (Reason: anxiety) aspirin 81 mg tablet,delayed release (DR/EC) 81 mg PO DAILY duloxetine 20 mg capsule,delayed release(DR/EC) PO DAILY metoprolol tartrate 25 mg tablet PO DAILY famotidine 10 mg tablet 10 mg PO BEDTIME Referrals: Effie Huerta MD [Primary Care Provider] - 11/26/24 Print Language: Korean
--- NOTE | 2024-11-23 12:56 | ECG_ITS ---
Test Reason : CHEST PAIN Blood Pressure : */* mmHG Vent. Rate : 98 BPM Atrial Rate : 98 BPM P-R Int : 180 ms QRS Dur : 122 ms QT Int : 382 ms P-R-T Axes : 28 -17 36 degrees QTcB Int : 487 ms Normal sinus rhythm Possible Left atrial enlargement Right bundle branch block Possible Inferior infarct (cited on or before 06-Sep-2024) Abnormal ECG When compared with ECG of 06-Sep-2024 01:42, No significant changes seen Referred By: Ira Braswell Electronically Signed By: SILVIA SAINZ
--- NOTE | 2024-11-23 14:22 | ED_ITS ---
HPI - Back Pain/Injury General Chief Complaint: Back Pain/Injury Stated Complaint: R side back pain going into leg Time Seen by Provider: 11/23/24 13:40 History of Present Illness HPI Narrative: patient is a 59-year-old female with a history of back pain. Complaining of back pain now since Monday radiating down to leg there was no trauma. Denies any fever chills. Patient has a history of hypertension. Patient complaining of pain 05/30. Did not take her blood pressure medication this morning. No fever no chills. No systemic complaints. Patient from home. No nausea no vomiting. No bowel urinary incontinence. Related Data Home Medications ?Medication ?Instructions ?Recorded ?Confirmed aspirin 81 mg tablet,delayed 81 mg PO DAILY 06/06/24 08/07/24 release fluoxetine 20 mg capsule 40 mg PO DAILY 06/06/24 08/07/24 gabapentin 100 mg capsule mg PO 06/06/24 08/07/24 lorazepam 0.5 mg tablet 0.5 mg PO Q8H PRN anxiety 06/06/24 08/07/24 losartan 50 mg tablet 50 mg PO QAM 06/06/24 08/07/24 methylphenidate HCl 5 mg tablet 5 mg PO DAILY 06/06/24 08/07/24 rosuvastatin 10 mg tablet 10 mg PO DAILY 06/06/24 08/07/24 trazodone 50 mg tablet 50 mg PO BEDTIME 06/06/24 08/07/24 famotidine 10 mg tablet 10 mg PO BEDTIME 08/07/24 08/07/24 duloxetine 20 mg capsule,delayed mg PO DAILY 09/19/24 release metoprolol tartrate 25 mg tablet mg PO DAILY 09/19/24 Previous Rx's ?Medication ?Instructions ?Recorded albuterol sulfate 90 mcg/actuation 2 puff inhalation Q4-6H PRN 09/25/23 aerosol inhaler shortness of breath or wheezing #6.7 grams ondansetron 4 mg disintegrating 4 mg PO Q6H PRN nausea and 09/06/24 tablet vomiting #10 tabs cyclobenzaprine 10 mg tablet 10 mg PO TID PRN pain #14 tabs 11/23/24 ibuprofen 400 mg tablet 400 mg PO Q6H PRN pain #20 tabs 11/23/24 oxycodone 5 mg tablet 5 mg PO Q8H PRN pain #7 tabs 11/23/24 Allergies Allergy/AdvReac Type Severity Reaction Status Date / Time lisinopril [LISINOPRIL] Allergy Severe ANGIOEDEMA Verified 11/23/24 12:57 Review of Systems 2 Review of Systems: Positive back pain Yes all other systems are reviewed and are negative FORMERLY [facility] Past Medical History Attestation statement: The following information was validated with the patient. Medical History Right shoulder pain History of trauma Other chronic pain Urinary incontinence Pulmonary embolism and infarction Myocardial infarction Depressive disorder GERD (gastroesophageal reflux disease) Stroke Asthma, cold induced Hypertension Anxiety Surgical History History of repair of ACL Hx of heart artery stent (~07/2017) History of craniotomy (~08/2017) Social History Social History Alcohol intake: never Substance Use Type: Marijuana Advance Directives: No Advance Directives Information Provided: No Do you have a plan to hurt others: No Plan Physical Exam 2 Vital Signs: Vital Signs: Last Vital Signs Temp 98.3 F 11/23/24 12:53 Pulse 98 11/23/24 14:55 Resp 20 11/23/24 14:55 BP 167/97 H 11/23/24 14:55 Pulse Ox 96 11/23/24 14:55 O2 Del Method Room Air 11/23/24 14:55 BMI result Body Mass Index 31.2 Appearance: Alert. Oriented X3. No acute distress. Eyes: Pupils equal, round and reactive to light. ENT: Pharynx normal. Neck: Normal inspection. Neck supple. No lymph nodes noted. No crepitus CVS: Normal heart rate and rhythm. Pulses normal. Normal S1 and S2 Respiratory: No respiratory distress. Breath sounds normal. No Wheezing. No rales Abdomen: Soft and nontender. No rigidity. No distention. good BS x4 Skin: Skin warm and dry. Normal skin color. Normal skin turgor. Extremities: No lower extremity edema. Neurovascular intact to all extremities. No Lacerations. No Rash Neuro: Oriented X 3. No motor deficit. No sensory deficit. Moving all extermities. No slurred speech Medications Administered Discontinued Medications Generic Name Dose Route Start Last Admin Trade Name Cornelio PRN Reason Stop Dose Admin Hydromorphone HCl 0.5 mg 11/23/24 14:19 11/23/24 14:42 Hydromorphone Hcl 0.5 Mg/0.5 Ml Syringe IVPUSH 11/23/24 14:20 0.5 mg ONCE ONE Administration Protocol Lorazepam 0.5 mg 11/23/24 14:19 11/23/24 14:41 Lorazepam 2 Mg/Ml Vial IVPUSH 11/23/24 14:20 0.5 mg ONCE ONE Administration Losartan Potassium 50 mg 11/23/24 14:23 11/23/24 14:56 Losartan Potassium 50 Mg Tablet PO 11/23/24 14:24 Not Given ONCE ONE Protocol Metoprolol Tartrate 25 mg 11/23/24 14:23 11/23/24 14:57 Metoprolol Tartrate 25 Mg Tablet PO 11/23/24 14:24 Not Given ONCE ONE Protocol Medical Decision Making Medical Decision Making [facility] Narrative: Patient is 59-year-old female with a history of back pain in the past complaining of pain radiating down the right hip area. There was no trauma. There is no bowel urinary incontinence is no signs of cauda equina syndrome. Given pain medication patient's blood pressure also improved. Patient did not take her blood pressure this morning but took it this afternoon. After pain is relieved patient's blood pressure improved. X-ray did not show any acute fracture. Patient's electrolytes are baseline. Her symptom improved with pain meds will discharge patient home. Currently i Differential Diagnosis Differential Diagnoses: The differential diagnosis associated with the presentation includes Sciatica, cauda equinus syndrome, abdominal aortic aneurysm Admission/Observation Consideration of admission/observation: Escalation of care including admission/observation considered Lab Data [facility] Lab Attestation statement: I reviewed the patient's lab results. 11/23/24 14:57 11/23/24 14:57 Labs: Lab Results 11/23/24 Range/Units 14:57 WBC 14.7 H (4.8-10.8) X10*3/uL RBC 4.68 (4.20-5.50) X10*6/uL Hgb 15.0 (12.0-16.0) g/dl Hct 41.6 (37.0-47.0) % MCV 88.9 (80.0-98.0) fL MCH 32.1 (27.0-33.0) pg MCHC 36.1 H (31.0-35.0) g/dl RDW 12.2 (11.0-16.0) % Plt Count 299 (160-400) X10*3/uL MPV 9.8 (9.4-12.3) fL Immature Gran % (Auto) 0.3 (0.0-0.4) % Neut % (Auto) 69.9 (45-73) % Lymph % (Auto) 21.8 (20-40) % [place] % (Auto) 6.2 (2-11) % Eos % (Auto) 1.3 (0-4) % Baso % (Auto) 0.5 (0-2) % Lymph # (Auto) 3.2 (1.2-4.9) X10*3/uL [place] # (Auto) 0.9 (0.1-1.2) X10*3/uL Eos # (Auto) 0.2 (0.0-0.4) X10*3/uL Baso # (Auto) 0.1 (0.0-0.2) X10*3/uL Abs Immat Gran (auto) 0.04 H (0.00-0.03) X10*3/uL Absolute Neuts (auto) 10.3 H (2.0-8.3) x10*3/uL Absolute Nucleated RBC 0.000 (0.0-0.012) X10*3/uL Nucleated RBC % (auto) 0.0 (0.0-0.2) /100WBC Sodium 141 (135-145) mmol/L Potassium 4.9 D (3.3-5.1) mmol/L Chloride 111 H (96-108) mmol/L Carbon Dioxide 20 L (22-29) mmol/L Anion Gap 15 (12-20) BUN 16 (9-16) mg/dL Creatinine 0.66 (0.5-1.4) mg/dL Estim Creat Clear Calc 87.0 Estimated GFR > 60 Random Glucose 105 (60-115) mg/dL Calcium 8.8 (8.4-10.2) mg/dL Independent Interpretation I performed an independent interpretation of an: Plain X-Ray ( no acute fracture) Radiology Impression Discussion of test interpretation with radiology: I have reviewed the radiologist's reading. External Record Review External record reviewed: Inpatient record Prescription Management I considered prescription management with: Antibiotic ( not needed) Chronic Conditions Patient?s care impacted by: Hypertension Discharge Plan Discharge Clinical Impression: Sciatica Patient Disposition: Home, Self-Care Instructions: Sciatica (ED) Prescriptions: New cyclobenzaprine 10 mg tablet 10 mg PO TID PRN (Reason: pain) Qty: 14 0RF ibuprofen 400 mg tablet 400 mg PO Q6H PRN (Reason: pain) Qty: 20 0RF oxycodone 5 mg tablet 5 mg PO Q8H PRN (Reason: pain) Qty: 7 0RF Rx Instructions: Partial Fill upon patient request. No Action ondansetron 4 mg tablet,disintegrating 4 mg PO Q6H PRN (Reason: nausea and vomiting) Qty: 10 0RF albuterol sulfate 90 mcg/actuation HFA aerosol inhaler 2 puff inhalation Q4-6H PRN (Reason: shortness of breath or wheezing) Qty: 6.7 0RF gabapentin 100 mg capsule PO trazodone 50 mg tablet 50 mg PO BEDTIME fluoxetine 20 mg capsule 40 mg PO DAILY losartan 50 mg tablet 50 mg PO QAM rosuvastatin 10 mg tablet 10 mg PO DAILY methylphenidate HCl 5 mg tablet 5 mg PO DAILY lorazepam 0.5 mg tablet 0.5 mg PO Q8H PRN (Reason: anxiety) aspirin 81 mg tablet,delayed release (DR/EC) 81 mg PO DAILY duloxetine 20 mg capsule,delayed release(DR/EC) PO DAILY metoprolol tartrate 25 mg tablet PO DAILY famotidine 10 mg tablet 10 mg PO BEDTIME Referrals: Effie Huerta MD [Primary Care Provider] - 11/26/24 Print Language: Irish
[2024-11-23] MEDS: LORazepam 2 MG/ML VIAL 0.5 MG IVPUSH (14:41)
[2024-11-23] MEDS: HYDROmorphone HCl 0.5 MG/0.5 ML SYRINGE IVPUSH (14:42)
[2024-11-23 14:55] VITALS: BP 167/97; PULSE 98; RESP 20; O2SAT 96
[2024-11-23 15:01] LABS: MANUAL DIFF FLAG NO
[2024-11-23 15:02] LABS: Basophils Absolute Auto 0.1 X10*3/uL (0.0-0.2); Basophils Percent Auto 0.5 % (0-2); Eosinophils Absolute Auto 0.2 X10*3/uL (0.0-0.4); Eosinophils Percent Auto 1.3 % (0-4); Hematocrit 41.6 % (37.0-47.0); Imm Gran Abs Auto 0.04 X10*3/uL (0.00-0.03); Imm Gran Pct Auto 0.3 % (0.0-0.4); Lymphocytes Absolute Auto 3.2 X10*3/uL (1.2-4.9); Lymphocytes Percent Auto 21.8 % (20-40); Mean Corpuscular HGB Conc 36.1 g/dl (31.0-35.0); Mean Corpuscular Hemoglobin 32.1 pg (27.0-33.0); Mean Corpuscular Volume 88.9 fL (80.0-98.0); Mean Platelet Volume 9.8 fL (9.4-12.3); Monocytes Absolute Auto 0.9 X10*3/uL (0.1-1.2); Monocytes Percent Auto 6.2 % (2-11); Neutrophils Absolute Auto 10.3 x10*3/uL (2.0-8.3); Neutrophils Percent Auto 69.9 % (45-73); Platelet Count 299 X10*3/uL (160-400); Red Blood Count 4.68 X10*6/uL (4.20-5.50); Red Cell Distribution Width 12.2 % (11.0-16.0); White Blood Count 14.7 X10*3/uL (4.8-10.8)
[2024-11-23 15:16] LABS: Anion Gap 15 (12-20); Blood Urea Nitrogen 16 mg/dL (9-16); Calcium 8.8 mg/dL (8.4-10.2); Carbon Dioxide 20 mmol/L (22-29); Chloride 111 mmol/L (96-108); Estimated Glomerular Filt Rate > 60; Glucose Random 105 mg/dL (60-115); Potassium 4.9 mmol/L (3.3-5.1); Sodium 141 mmol/L (135-145)
[2024-11-23 16:11] VITALS: BP 159/93; PULSE 98; RESP 20; TEMP 36.9; O2SAT 96
== END 2024-11-23 16:12 | disposition home or self-care (01) ==
PROVIDERS: Emergency Provider Emergency Medicine Emergency Medical Services; PCP Family Medicine
DX: M54.41 Lumbago with sciatica, right side (principal)
CPT/HCPCS: 36415; 72100; 80048; 85025; 93005; 96374; 96375; 99283; 99284; J1171; J2060

== ENCOUNTER → 2024-11-23 12:54 | Outpatient (BNV) | payer MEDICARE, OTHER, SELFPAY | PROVIDERS: Emergency Provider Emergency Medicine Emergency Medical Services; PCP Family Medicine; Visit Provider Radiology Diagnostic Radiology | DX: M54.50 Low back pain, unspecified (principal) | CPT/HCPCS: 72100 ==

== ENCOUNTER → 2024-11-23 12:56 | Outpatient (BNV) | payer MEDICARE, OTHER, SELFPAY | PROVIDERS: Emergency Provider Emergency Medicine Emergency Medical Services; PCP Family Medicine; Visit Provider Internal Medicine | DX: I45.10 Unspecified right bundle-branch block (principal) | CPT/HCPCS: 93010 ==

== ENCOUNTER 2025-04-02 19:39 | Emergency (ER) | payer MEDICARE, SELFPAY ==
[2025-04-02 19:44] VITALS: BP 191/92; PULSE 73; RESP 18; TEMP 36; O2SAT 94; BMI 31.2
--- NOTE | 2025-04-02 19:48 | ED.GENADULT ---
HPI - General Adult General Chief complaint: Neck Pain/Injury Stated complaint: pain in neck & lt hand Time Seen by Provider: 04/03/25 00:13 Source: patient Mode of arrival: ambulatory Limitations: no limitations History of Present Illness ED Provider: John GAO HPI narrative: The patient is a 59-year-old female with a history of cervical radiculopathy, degenerative disc disease, chronic pain syndrome, spinal stenosis of the cervical region, and a previous stroke, presenting to the ED for evaluation of acute exacerbation of chronic neck pain which has been occurring over the past 2 years. Patient reports she has been seen by multiple specialists for her chronic neck pain, most recently seen by [facility] in August, reports she was not happy with their care and we will proceed it started by [facility] spine, who she last saw in December. Patient was referred to physical therapy at that time, patient reportedly did a short amount of physical therapy and then shows 2 discontinue physical therapy and in place began yoga, kayaking, and other outdoor activities. Patient reports yesterday evening she took 2 tablets of Flexeril, felt well enough this morning to go kayaking, patient denies any blunt trauma or other strain/injury while kayaking. The patient reports however at 16:00, while after completing her kayaking trip she developed severe exacerbation of her chronic right posterior neck pain with painful but not impaired range of motion, and tingling paresthesias of the bilateral upper extremities. The patient denies associated fever/chills, nausea, vomiting, nuchal rigidity, fall, or other systemic complaint. The patient reports she took ibuprofen around 17:00 and an Epsom salt bath. Related Data Home Medications ?Medication ?Instructions ?Recorded ?Confirmed aspirin 81 mg tablet,delayed 81 mg PO DAILY 06/06/24 08/07/24 release fluoxetine 20 mg capsule 40 mg PO DAILY 06/06/24 08/07/24 gabapentin 100 mg capsule mg PO 06/06/24 08/07/24 lorazepam 0.5 mg tablet 0.5 mg PO Q8H PRN anxiety 06/06/24 08/07/24 losartan 50 mg tablet 50 mg PO QAM 06/06/24 08/07/24 methylphenidate HCl 5 mg tablet 5 mg PO DAILY 06/06/24 08/07/24 rosuvastatin 10 mg tablet 10 mg PO DAILY 06/06/24 08/07/24 trazodone 50 mg tablet 50 mg PO BEDTIME 06/06/24 08/07/24 famotidine 10 mg tablet 10 mg PO BEDTIME 08/07/24 08/07/24 duloxetine 20 mg capsule,delayed mg PO DAILY 09/19/24 release metoprolol tartrate 25 mg tablet mg PO DAILY 09/19/24 Previous Rx's ?Medication ?Instructions ?Recorded albuterol sulfate 90 mcg/actuation 2 puff inhalation Q4-6H PRN 09/25/23 aerosol inhaler shortness of breath or wheezing #6.7 grams ondansetron 4 mg disintegrating 4 mg PO Q6H PRN nausea and 09/06/24 tablet vomiting #10 tabs cyclobenzaprine 10 mg tablet 10 mg PO TID PRN pain #14 tabs 11/23/24 ibuprofen 400 mg tablet 400 mg PO Q6H PRN pain #20 tabs 11/23/24 oxycodone 5 mg tablet 5 mg PO Q8H PRN pain #7 tabs 11/23/24 acetaminophen 500 mg capsule 1,000 mg (2 x 500 mg) PO .q8 PRN 04/03/25 fever or pain #30 caps cyclobenzaprine 10 mg tablet 10 mg PO TID PRN muscle spasm #14 04/03/25 tabs ibuprofen 600 mg tablet 600 mg PO Q8H PRN fever or pain 04/03/25 #30 tabs Allergies Allergy/AdvReac Type Severity Reaction Status Date / Time lisinopril (LISINOPRIL) Allergy Severe ANGIOEDEMA Verified 04/02/25 19:48 Review of Systems Review of Systems: Yes all other systems are reviewed and are negative FORMERLY [facility], [facility] Past Medical History Medical History Right shoulder pain History of trauma Other chronic pain Urinary incontinence Pulmonary embolism and infarction Myocardial infarction Depressive disorder GERD (gastroesophageal reflux disease) Stroke Asthma, cold induced Hypertension Anxiety Surgical History History of repair of ACL Hx of heart artery stent (~07/2017) History of craniotomy (~08/2017) Social History Social History Alcohol intake: never Substance Use Type: Marijuana Advance Directives: No Advance Directives Information Provided: Yes Do you have a plan to hurt others: No Plan Physical Exam ED Vital Signs: Vital Signs - 24 hr 04/02/25 19:44 Temperature 96.8 F Pulse Rate 73 Respiratory Rate 18 Blood Pressure 191/92 H Pulse Oximetry 94 Oxygen Delivery Method Room Air BMI result Body Mass Index 31.2 CONSTITUTIONAL: The patient appears uncomfortable but otherwise non-toxic, well nourished and in no acute distress. Vital signs as documented. HEAD: Atraumatic, normocephalic. EYES: EOMs grossly intact, pupils equal, conjunctiva clear, no exudate. ENT: Nares patent, no discharge. Airway patent, no audible stridor, visible mucosa is pink and moist without noted lesions. No midline spinous process tenderness, no crepitus or step-off. NECK: trachea is midline, no obvious masses or gross abnormalities. CHEST: Symmetric movement, normal appearance. LUNGS: Non-labored work of breathing. CARDIAC: No evidence of hypoperfusion. ABDOMEN: Nondistended, no obvious injury. : Deferred. 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 Strength 5/5 x4. No obvious injury or deformity noted. NEURO: Alert and oriented x3, CN II-XII appear grossly intact. Cerebellar Functioning grossly intact. Speech clear and appropriate. SKIN: Warm, dry, color appropriate. No rashes or lesions noted. Course Course Course Narrative: This is a rapid medical exam performed by Temo Moncada NP: Additional HPI, ROS, PE not included below will be deferred to primary provider. Patient is a 59-year-old female with history of cervical spondylosis, degenerative cervical disc, chronic pain syndrome, HTN, asthma, CVA, [place], PE presenting to the ED with complaint of severe neck pain radiating to L shoulder and hand for the past 2 years. States has had extensive workup without diagnosis. Last saw pain management here in August of this year-see note from provider. Plan: will defer imaging to primary provider Medications Administered Discontinued Medications Generic Name Dose Route Start Last Admin Trade Name Freq PRN Reason Stop Dose Admin Acetaminophen 975 mg 04/03/25 00:30 04/03/25 00:41 Acetaminophen 325 Mg Tablet PO 04/03/25 00:31 975 mg ONCE ONE Administration Cyclobenzaprine HCl 5 mg 04/03/25 00:30 04/03/25 00:41 Cyclobenzaprine Hcl 5 Mg Tablet PO 04/03/25 00:31 5 mg ONCE ONE Administration Ketorolac Tromethamine 30 mg 04/03/25 00:30 04/03/25 00:41 Ketorolac Tromethamine 30 Mg/Ml Vial IM 04/03/25 00:31 30 mg ONCE ONE Administration Lidocaine 1 patch 04/03/25 00:30 04/03/25 00:42 Lidocaine 4 % Patch Adh..Patch TRANSDERMA 04/03/25 00:31 1 patch ONCE ONE Administration Protocol Medical Decision Making Medical Decision Making MDM Narrative: 12:37 AM 04/03/2025 (Janelle GAO): The patient is a 59-year-old female presenting to the ED for evaluation of acute exacerbation of chronic neck pain with associated radicular symptoms of the bilateral upper extremities. The patient has had no recent trauma or sick contacts, no systemic symptoms. The patient has no nuchal rigidity or other signs of meningismus. Patient has no bowel/bladder incontinence or saddle paresthesias, no concern for cauda equina. Patient has had no recent trauma, there was no indication for plain films or advanced imaging. The patient appears to be suffering from musculoskeletal strain with cervical radiculopathy, patient will be treated with Flexeril, Toradol, Tylenol, and a lidocaine patch. We will reassess for improvement following interventions. 3:58 AM 04/03/2025 (Janelle GAO): Patient has been sleeping comfortably since initiation of interventions. Patient will be discharged home with ibuprofen, Tylenol, and Flexeril. Admission/Observation Consideration of admission/observation: Escalation of care including admission/observation considered External Record Review External record reviewed: Office record and Outpatient record Prescription Management I considered prescription management with: Pain Medication Discharge Plan Discharge Clinical Impression: Cervical radiculopathy, Strain of neck muscle Patient Disposition: Home, Self-Care Instructions: Cervical Strain (ED), Cervical Radiculopathy (ED) Additional Instructions: Thank you for choosing [facility] Emergency Department for your care today. At this time there is no indication for admission to the hospital or continued ED observation, and it is safe to discharge you home. Your pain today is likely secondary to your chronic cervical spondylosis with cervical radiculopathy, your symptoms may have increased today secondary to musculoskeletal strain. You may take alternating (staggered) doses of ibuprofen 600mg and Tylenol 1000mg every 4 hours as needed for any additional pain. Please rest the injured area, and apply ice for 20 minutes every hour. Please stay well hydrated and get plenty of rest. As a part of your care plan, you have also been prescribed a muscle relaxer called Flexeril. Please take this medication only for severe pain or spasm that is not relieved by ibuprofen and/or Tylenol. Muscle relaxer medications can carry high risk of unintentional addiction and abuse. Take this medication only as directed and only if absolutely necessary. This medicine can make you drowsy, you are not allowed to drive, operate heavy machinery, or be the sole care provider for children while taking this medication. We have treated you with a lidocaine patch, if you find this provides you significant relief additional patches can be purchased at any local pharmacy without a prescription. Please follow up with your primary care physician for re-evaluation, additional management of your symptoms, and continued preventative care. If you do not have a primary care physician, please call the [facility] at [phone] to establish a new primary care physician. While waiting to establish your new primary care physician, you can call our [facility] at [phone] for non-emergency needs. Please return to the emergency department if you develop a severe or sudden change in your symptoms, a fever over 100.4 that does not improve with Tylenol or Ibuprofen, recurrent vomiting, or any other new or worsening symptoms or concerns. Prescriptions: New cyclobenzaprine 10 mg tablet 10 mg PO TID PRN (Reason: muscle spasm) Qty: 14 0RF ibuprofen 600 mg tablet 600 mg PO Q8H PRN (Reason: fever or pain) Qty: 30 0RF acetaminophen 500 mg capsule 1,000 mg PO .q8 PRN (Reason: fever or pain) Qty: 30 0RF No Action ondansetron 4 mg tablet,disintegrating 4 mg PO Q6H PRN (Reason: nausea and vomiting) Qty: 10 0RF albuterol sulfate 90 mcg/actuation HFA aerosol inhaler 2 puff inhalation Q4-6H PRN (Reason: shortness of breath or wheezing) Qty: 6.7 0RF cyclobenzaprine 10 mg tablet 10 mg PO TID PRN (Reason: pain) Qty: 14 0RF ibuprofen 400 mg tablet 400 mg PO Q6H PRN (Reason: pain) Qty: 20 0RF oxycodone 5 mg tablet 5 mg PO Q8H PRN (Reason: pain) Qty: 7 0RF Rx Instructions: Partial Fill upon patient request. gabapentin 100 mg capsule PO trazodone 50 mg tablet 50 mg PO BEDTIME fluoxetine 20 mg capsule 40 mg PO DAILY losartan 50 mg tablet 50 mg PO QAM rosuvastatin 10 mg tablet 10 mg PO DAILY methylphenidate HCl 5 mg tablet 5 mg PO DAILY lorazepam 0.5 mg tablet 0.5 mg PO Q8H PRN (Reason: anxiety) aspirin 81 mg tablet,delayed release (DR/EC) 81 mg PO DAILY duloxetine 20 mg capsule,delayed release(DR/EC) PO DAILY metoprolol tartrate 25 mg tablet PO DAILY famotidine 10 mg tablet 10 mg PO BEDTIME Print Language: Kazakh
[2025-04-03] MEDS: Lidocaine 4 % Patch ADH..PATCH 1 PATCH TRANSDERMA (00:42)
--- NOTE | 2025-04-03 03:52 | PC.NURSE ---
ambulating without assistance steadily. states pain improved to 7/10. no observable grimacing, moaning, etc
[2025-04-03 04:04] VITALS: BP 135/78; PULSE 70; RESP 16; TEMP 37.1; O2SAT 99
== END 2025-04-03 04:10 | disposition home or self-care (01) ==
PROVIDERS: Emergency Provider Emergency Medicine
DX: S16.1XXA Strain of muscle, fascia and tendon at neck level, initial encounter (principal); X58.XXXA Exposure to other specified factors, initial encounter; Y93.9 Activity, unspecified; Y92.9 Unspecified place or not applicable; Y99.9 Unspecified external cause status; M54.2 Cervicalgia; M54.12 Radiculopathy, cervical region
CPT/HCPCS: 96372; 99284; J1885